=== PATIENT | female | born 1975 ===

== ENCOUNTER 2021-04-11 12:34 | Outpatient (REF) | payer OTHER, SELFPAY ==
[2021-04-11 15:32] LABS: Appearance Urine CLEAR; Color Urine YELLOW; Glucose Urine UA NEG (NEG); Leukocyte Esterase Urine NEG (NEG); Nitrite Urine NEG (NEG); Specific Gravity - Urine >= 1.030 (1.005-1.025); Urine Blood NEG (NEG); Urine Ketones NEG (NEG); Urine Protein NEG (NEG-TRACE)
[2021-04-11 15:51] LABS: Creatinine Urine 122.07 mg/dL; Microalbumin Urine < 5.0 mg/L
== END 2021-04-11 12:35 | disposition home or self-care (01) ==
LOC: HO.LAB 12:34
PROVIDERS: Internal Medicine Nephrology; PCP Internal Medicine; Visit Provider Internal Medicine Nephrology
DX: M32.10 Systemic lupus erythematosus, organ or system involvement unspecified (principal)
CPT/HCPCS: 81003; 82043

== ENCOUNTER 2021-11-26 09:33 | Outpatient (REF) | payer MEDICARE, MEDICAID, SELFPAY ==
[2021-11-26 10:01] LABS: MANUAL DIFF FLAG NO
[2021-11-26 10:35] LABS: Basophils Percent Auto 0.5 % (0-2); Eosinophils Absolute Auto 0.1 X10*3/uL (0.0-0.4); Hematocrit 34.5 % (37.0-47.0); Hemoglobin 10.9 g/dl (12.0-16.0); Imm Gran Abs Auto 0.02 X10*3/uL (0.00-0.03); Imm Gran Pct Auto 0.3 % (0.0-0.4); Lymphocytes Absolute Auto 1.9 X10*3/uL (1.2-4.9); Lymphocytes Percent Auto 29.8 % (20-40); Mean Corpuscular HGB Conc 31.6 g/dl (31.0-35.0); Mean Corpuscular Hemoglobin 24.5 pg (27.0-33.0); Mean Corpuscular Volume 77.7 fL (80.0-98.0); Mean Platelet Volume 12.3 fL (9.4-12.3); Monocytes Absolute Auto 0.3 X10*3/uL (0.1-1.2); Monocytes Percent Auto 5.4 % (2-11); Neutrophils Absolute Auto 3.9 x10*3/uL (2.0-8.3); Platelet Count 239 X10*3/uL (160-400); Red Blood Count 4.44 X10*6/uL (4.20-5.50); Red Cell Distribution Width 14.8 % (11.0-16.0); White Blood Count 6.4 X10*3/uL (4.8-10.8)
[2021-11-26 10:41] LABS: Appearance Urine CLEAR; Color Urine YELLOW; Glucose Urine UA 100 MG/DL (NEG); Leukocyte Esterase Urine NEG (NEG); Nitrite Urine NEG (NEG); Specific Gravity - Urine >= 1.030 (1.005-1.025); Urine Blood NEG (NEG); Urine Ketones NEG (NEG); Urine Protein NEG (NEG-TRACE)
[2021-11-26 11:22] LABS: Erythrocyte Sedimentation Rate 14 MM/HR (0-20)
[2021-11-26 11:27] LABS: Alanine Aminotransferase 12 U/L (0-31); Albumin Level 4.6 g/dL (3.5-5.0); Alkaline Phosphatase 117 U/L (39-117); Anion Gap 12 (12-20); Aspartate Amino Transferase 19 U/L (5-31); Bilirubin Total 0.3 mg/dL (0.0-1.0); Blood Urea Nitrogen 30 mg/dL (9-16); C Reactive Protein 0.61 mg/dL (< or = 0.50); Calcium 9.1 mg/dL (8.4-10.2); Carbon Dioxide 22 mmol/L (22-29); Chloride 108 mmol/L (96-108); Cholesterol 160 mg/dL; Estimated Glomerular Filt Rate 48; Glucose Random 85 mg/dL (60-115); HDL Cholesterol 49 mg/dL; LDL Cholesterol Calculated 97 mg/dl; Potassium 4.7 mmol/L (3.3-5.1); Sodium 137 mmol/L (135-145); Total Protein 7.8 g/dL (6.5-8.0); Triglycerides 74 mg/dL
[2021-11-26 11:36] LABS: Vitamin D 25-OH Total 25.2 ng/mL (>30)
[2021-11-26 11:37] LABS: Albumin Level 4.5 g/dL (3.5-5.0); Anion Gap 13 (12-20); Blood Urea Nitrogen 30 mg/dL (9-16); Carbon Dioxide 22 mmol/L (22-29); Chloride 108 mmol/L (96-108); Estimated Glomerular Filt Rate 48; Magnesium 2.1 mg/dL (1.6-2.6); Phosphorus 3.6 mg/dL (2.7-4.5); Potassium 4.8 mmol/L (3.3-5.1); Sodium 138 mmol/L (135-145)
[2021-11-26 12:48] LABS: Creatinine Urine 153.81 mg/dL; Protein/Creatinine Ratio, Ur 0.06 (<0.2); Total Protein Urine Random 9 mg/dL (<12)
[2021-11-27 13:47] LABS: Calcium (PTHI) 9.3 mg/dL (8.6-10.2); PTHI 122 pg/mL (16-77)
[2021-11-27 16:02] LABS: Complement C3 84 mg/dL (83-193)
[2021-12-01 14:22] LABS: Anti DNA DS Antibody 2 IU/mL
== END 2021-11-26 09:34 | disposition home or self-care (01) ==
LOC: HO.LAB 09:33
PROVIDERS: Absent Provider Internal Medicine Nephrology; PCP Internal Medicine; Visit Provider Internal Medicine Rheumatology
DX: I73.9 Peripheral vascular disease, unspecified (principal); I12.9 Hypertensive chronic kidney disease with stage 1 through stage 4 chronic kidney disease, or unspecified chronic kidney disease; N18.31 Chronic kidney disease, stage 3a; M32.9 Systemic lupus erythematosus, unspecified; D68.62 Lupus anticoagulant syndrome; N25.0 Renal osteodystrophy; G62.9 Polyneuropathy, unspecified
CPT/HCPCS: 36415; 80051; 80053; 80061; 81003; 82040; 82306; 82310; 82565; 83735; 83970; 84100; 84156; 84520; 85025; 85652; 86140; 86160; 86225; 87086; 99212

== ENCOUNTER → 2022-02-02 12:58 | Outpatient (BNVA) | payer MEDICARE, MEDICAID, SELFPAY | PROVIDERS: PCP Internal Medicine; Visit Provider Internal Medicine Rheumatology | DX: M32.9 Systemic lupus erythematosus, unspecified (principal); I12.9 Hypertensive chronic kidney disease with stage 1 through stage 4 chronic kidney disease, or unspecified chronic kidney disease; N18.30 Chronic kidney disease, stage 3 unspecified; R06.02 Shortness of breath; G62.9 Polyneuropathy, unspecified | CPT/HCPCS: 99212 ==

== ENCOUNTER 2022-02-19 13:36 | Outpatient (REF) | payer MEDICARE, MEDICAID, SELFPAY ==
--- NOTE | ~2022-02-19 | MM_ITS ---
EXAMINATION: MM SCREENING DIGITAL BREAST TOMOSYNTHESIS, BILATERAL CLINICAL INFORMATION: Screening. Asymptomatic. The lifetime risk of breast cancer based on the Tyrer-Cuzick Model is 10%. COMPARISON: Outside mammography: 06/11/2016, 04/24/2016 ([facility]). TECHNIQUE: Digital breast tomosynthesis is performed in both the craniocaudal and mediolateral oblique views along with computer-aided detection (CAD). Synthesized 2D images are generated from the tomosynthesis. FINDINGS: The breasts are heterogeneously dense, which may obscure small masses (ACR BI-RADS breast composition Category c). There are no significant masses, abnormal calcifications, or other abnormalities. Parenchymal pattern is similar to prior outside exam. No architectural abnormality. The axilla and skin contours are unremarkable. MM/MM tomosynthesis screening BI IMPRESSION: No mammographic evidence of malignancy. ASSESSMENT: BI-RADS 1: Negative RECOMMENDATION: Routine annual mammography screening. This patient's information was entered into a reminder system with a target due date for their next mammogram.
== END 2022-02-19 13:37 | disposition home or self-care (01) ==
LOC: HO.MAMMO 13:36
PROVIDERS: Visit Provider Internal Medicine
DX: Z12.31 Encounter for screening mammogram for malignant neoplasm of breast (principal)
CPT/HCPCS: 77063; 77067

== ENCOUNTER 2022-04-21 13:13 | Outpatient (REF) | payer MEDICARE, MEDICAID, SELFPAY ==
--- NOTE | ~2022-04-21 | XR_ITS ---
EXAMINATION: XR chest 2V CLINICAL INFORMATION: Shortness of breath COMPARISON: Prior chest x-ray 2016 TECHNIQUE: XR chest 2V Lungs and Janice: Both lungs are clear. Pleura: Normal. Costophrenic angles are sharp. No pneumothorax. Heart: The heart is normal in size. Mediastinum: The mediastinum is within normal limits.. Bones: Skeletal structures included are normal for patient's age. XR/XR chest 2V IMPRESSION: No radiographic evidence of acute cardiopulmonary disease.
[2022-04-21 13:34] LABS: MANUAL DIFF FLAG NO
[2022-04-21 14:04] LABS: Basophils Percent Auto 0.8 % (0-2); Eosinophils Absolute Auto 0.2 X10*3/uL (0.0-0.4); Eosinophils Percent Auto 2.8 % (0-4); Hematocrit 40.6 % (37.0-47.0); Hemoglobin 13.5 g/dl (12.0-16.0); Imm Gran Abs Auto 0.03 X10*3/uL (0.00-0.03); Imm Gran Pct Auto 0.6 % (0.0-0.4); Lymphocytes Absolute Auto 1.8 X10*3/uL (1.2-4.9); Mean Corpuscular HGB Conc 33.3 g/dl (31.0-35.0); Mean Corpuscular Hemoglobin 28.8 pg (27.0-33.0); Mean Corpuscular Volume 86.6 fL (80.0-98.0); Monocytes Absolute Auto 0.4 X10*3/uL (0.1-1.2); Monocytes Percent Auto 7.1 % (2-11); Neutrophils Percent Auto 55.7 % (45-73); Platelet Count 188 X10*3/uL (160-400); Red Blood Count 4.69 X10*6/uL (4.20-5.50); Red Cell Distribution Width 13.9 % (11.0-16.0); White Blood Count 5.3 X10*3/uL (4.8-10.8)
[2022-04-21 14:51] LABS: Protein/Creatinine Ratio, Ur 0.05 (<0.2); Total Protein Urine Random 12 mg/dL (<12)
[2022-04-21 14:57] LABS: Alanine Aminotransferase 14 U/L (0-31); Albumin Level 4.2 g/dL (3.5-5.0); Alkaline Phosphatase 73 U/L (39-117); Anion Gap 11 (12-20); Aspartate Amino Transferase 17 U/L (5-31); Bilirubin Total 0.5 mg/dL (0.0-1.0); Blood Urea Nitrogen 18 mg/dL (9-16); C Reactive Protein 0.59 mg/dL (< or = 0.50); Calcium 9.2 mg/dL (8.4-10.2); Carbon Dioxide 25 mmol/L (22-29); Chloride 104 mmol/L (96-108); Estimated Glomerular Filt Rate 53; Glucose Random 85 mg/dL (60-115); Potassium 4.3 mmol/L (3.3-5.1); Sodium 136 mmol/L (135-145)
[2022-04-21 16:53] LABS: Erythrocyte Sedimentation Rate 3 MM/HR (0-20)
== END 2022-04-21 13:14 | disposition home or self-care (01) ==
LOC: HO.LAB 13:13
PROVIDERS: PCP Internal Medicine; Visit Provider Internal Medicine Rheumatology
DX: M32.9 Systemic lupus erythematosus, unspecified (principal); N18.30 Chronic kidney disease, stage 3 unspecified; R06.02 Shortness of breath
CPT/HCPCS: 36415; 71046; 80053; 84156; 85025; 85652; 86140

== ENCOUNTER → 2022-04-27 14:00 | Outpatient (BNVA) | payer MEDICARE, MEDICAID, SELFPAY | PROVIDERS: PCP Internal Medicine; Visit Provider Internal Medicine Rheumatology | DX: M32.9 Systemic lupus erythematosus, unspecified (principal); G62.9 Polyneuropathy, unspecified; I12.9 Hypertensive chronic kidney disease with stage 1 through stage 4 chronic kidney disease, or unspecified chronic kidney disease; N18.30 Chronic kidney disease, stage 3 unspecified; E03.9 Hypothyroidism, unspecified; M70.61 Trochanteric bursitis, right hip; M70.62 Trochanteric bursitis, left hip; R26.81 Unsteadiness on feet; Z79.899 Other long term (current) drug therapy | CPT/HCPCS: 99212 ==

== ENCOUNTER 2022-06-24 12:35 | Outpatient (RCR) | payer MEDICARE, MEDICAID, SELFPAY ==
[2022-06-24 13:06] VITALS: BP 109/75; PULSE 76; O2SAT 97
--- NOTE | 2022-06-24 15:15 | MHC.PT.EP ---
[facility] [place] Office [place] Office [place] Office [address] Charly Salinas [address] [phone] F: [phone] F: [phone] F: [phone] F: [phone] Physical Therapy Plan of Care Date of Evaluation: Date of Surgery: Diagnosis: BILATERAL HIP BURSITIS, UNSTEADY GAIT Assessment: 47 YO REF TO PT WITH A H/O LUPUS AND EXACERBATED MERARI HIP PAIN- SHE IS LIMITED W WALKING/ EXER/ STAIR MGMT/ LIFTING/ SQUATTING- SHE HAS DECR LUMBOPELVIC/PROX LEs STRENGTH AND STAB, TIGHTNESS IN MERARI HIP ROTATORS, (+) TISSUE TENDERNESS AND TRPs MERARI PSOAS AND QL, TISSUE TENSION IN MERARI LS W COMPENSATORY HYPERLORDOSIS , (+) VALSALVA TENDENCIES, (+) FADIR , AND PAIN W PALP TO MERARI TROCH REGION. Pt IS MOTIVATED FOR PT- SHE WOULD BENEFIT FROM PT TO ADDRESS THE ABOVE FINDINGS, PAIN MGMT, DEV A PROGR HEP, AND SELF-SX MGMT TECHN. 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 Manual therapy to restore motion and function. Therapeutic exercise to improve strength and flexibility. Neuromuscular re-education for posture and balance. Therapeutic activities to return to functional activities of daily living. Electronically signed by: DMITRIY JOHNSON,PT Please sign and return to therapist. Thank you for your referral.
--- NOTE | 2022-07-15 14:29 | MHC.PT.DC ---
[facility] [place] Office [place] Office [place] Office [address] Charly Salinas [address] [phone] F: [phone] F: [phone] F: [phone] F: [phone] Physical Therapy Discharge Report Diagnosis: BILATERAL HIP BURSITIS, UNSTEADY GAIT Date of Surgery: Date of Evaluation: 06/24/22 Date of Discharge: 07/15/22 Treatments to Date: 1 Cancellations to Date: 1 No Shows to Date: 2 Discharge Status: Visit Non-compliance Discharge Summary: Pt DID NOT MEET PT GOALS DUE TO DECR ATTENDANCE FOR SCHED PT APPTS, DESPITE REGULAR REMINDERS. Electronically signed by: DMITRIY JOHNSON,PT Please sign and return to therapist. Thank you for your referral.
== END 2022-07-15 14:30 | disposition home or self-care (01) ==
LOC: HO.PT 12:35
PROVIDERS: PCP Internal Medicine; Visit Provider Internal Medicine Rheumatology
DX: M70.61 Trochanteric bursitis, right hip (principal); M70.62 Trochanteric bursitis, left hip; R26.81 Unsteadiness on feet
CPT/HCPCS: 97110; 97162

== ENCOUNTER 2022-06-29 16:21 | Outpatient (REF) | payer MEDICARE, MEDICAID, SELFPAY ==
[2022-06-29 16:39] LABS: MANUAL DIFF FLAG NO
[2022-06-29 17:34] LABS: Basophils Percent Auto 0.3 % (0-2); Eosinophils Absolute Auto 0.1 X10*3/uL (0.0-0.4); Eosinophils Percent Auto 1.7 % (0-4); Hematocrit 39.7 % (37.0-47.0); Hemoglobin 13.4 g/dl (12.0-16.0); Imm Gran Abs Auto 0.03 X10*3/uL (0.00-0.03); Imm Gran Pct Auto 0.4 % (0.0-0.4); Lymphocytes Absolute Auto 2.4 X10*3/uL (1.2-4.9); Lymphocytes Percent Auto 34.7 % (20-40); Mean Corpuscular HGB Conc 33.8 g/dl (31.0-35.0); Mean Corpuscular Hemoglobin 29.4 pg (27.0-33.0); Mean Corpuscular Volume 87.1 fL (80.0-98.0); Monocytes Absolute Auto 0.5 X10*3/uL (0.1-1.2); Monocytes Percent Auto 7.4 % (2-11); Neutrophils Absolute Auto 3.8 x10*3/uL (2.0-8.3); Neutrophils Percent Auto 55.5 % (45-73); Platelet Count 204 X10*3/uL (160-400); Red Blood Count 4.56 X10*6/uL (4.20-5.50); Red Cell Distribution Width 12.6 % (11.0-16.0); White Blood Count 6.9 X10*3/uL (4.8-10.8)
[2022-06-29 17:44] LABS: Anion Gap 13 (12-20); Blood Urea Nitrogen 21 mg/dL (9-16); Calcium 9.6 mg/dL (8.4-10.2); Carbon Dioxide 24 mmol/L (22-29); Chloride 107 mmol/L (96-108); Estimated Glomerular Filt Rate 49; Glucose Random 71 mg/dL (60-115); Potassium 4.5 mmol/L (3.3-5.1); Sodium 139 mmol/L (135-145)
[2022-06-29 17:46] LABS: Creatinine Urine 129.02 mg/dL; Total Protein Urine Random < 7 mg/dL (<12)
[2022-06-29 17:49] LABS: C Reactive Protein 0.34 mg/dL (< or = 0.50)
[2022-06-29 18:05] LABS: Thyroid Stimulating Hormone 1.51 uIU/mL (0.32-4.0)
[2022-06-29 18:25] LABS: Erythrocyte Sedimentation Rate 3 MM/HR (0-20)
== END 2022-06-29 16:22 | disposition home or self-care (01) ==
LOC: HO.LAB 16:21
PROVIDERS: Absent Provider Internal Medicine Hypertension Specialist; PCP Internal Medicine; Visit Provider Internal Medicine Rheumatology
DX: E03.9 Hypothyroidism, unspecified (principal); M32.9 Systemic lupus erythematosus, unspecified; N18.31 Chronic kidney disease, stage 3a
CPT/HCPCS: 36415; 80048; 84156; 84443; 85025; 85652; 86140

== ENCOUNTER → 2022-07-27 10:46 | Outpatient (BNVA) | payer MEDICARE, MEDICAID, SELFPAY | PROVIDERS: PCP Internal Medicine; Visit Provider Internal Medicine Rheumatology | DX: M32.9 Systemic lupus erythematosus, unspecified (principal); G62.9 Polyneuropathy, unspecified; I10 Essential (primary) hypertension; Z79.899 Other long term (current) drug therapy | CPT/HCPCS: 99212 ==

== ENCOUNTER 2022-11-17 13:01 | Outpatient (REF) | payer MEDICARE, MEDICAID, SELFPAY ==
[2022-11-17 13:14] LABS: MANUAL DIFF FLAG NO
[2022-11-17 14:10] LABS: Basophils Percent Auto 0.6 % (0-2); Eosinophils Absolute Auto 0.1 X10*3/uL (0.0-0.4); Eosinophils Percent Auto 1.6 % (0-4); Hematocrit 38.9 % (37.0-47.0); Hemoglobin 13.3 g/dl (12.0-16.0); Imm Gran Abs Auto 0.04 X10*3/uL (0.00-0.03); Imm Gran Pct Auto 0.6 % (0.0-0.4); Lymphocytes Absolute Auto 2.5 X10*3/uL (1.2-4.9); Lymphocytes Percent Auto 38.6 % (20-40); Mean Corpuscular HGB Conc 34.2 g/dl (31.0-35.0); Mean Corpuscular Hemoglobin 30.4 pg (27.0-33.0); Monocytes Absolute Auto 0.5 X10*3/uL (0.1-1.2); Monocytes Percent Auto 7.9 % (2-11); Neutrophils Absolute Auto 3.3 x10*3/uL (2.0-8.3); Neutrophils Percent Auto 50.7 % (45-73); Platelet Count 200 X10*3/uL (160-400); Red Blood Count 4.37 X10*6/uL (4.20-5.50); Red Cell Distribution Width 12.4 % (11.0-16.0); White Blood Count 6.4 X10*3/uL (4.8-10.8)
[2022-11-17 14:58] LABS: Erythrocyte Sedimentation Rate 4 MM/HR (0-20)
[2022-11-17 15:30] LABS: Alanine Aminotransferase 15 U/L (0-31); Albumin Level 4.3 g/dL (3.5-5.0); Alkaline Phosphatase 69 U/L (39-117); Anion Gap 13 (12-20); Aspartate Amino Transferase 19 U/L (5-31); Bilirubin Total 0.5 mg/dL (0.0-1.0); Blood Urea Nitrogen 21 mg/dL (9-16); C Reactive Protein 0.43 mg/dL (< or = 0.50); Calcium 9.6 mg/dL (8.4-10.2); Carbon Dioxide 23 mmol/L (22-29); Chloride 107 mmol/L (96-108); Estimated Glomerular Filt Rate 56; Glucose Random 85 mg/dL (60-115); Potassium 4.1 mmol/L (3.3-5.1); Sodium 139 mmol/L (135-145); Total Protein 7.2 g/dL (6.5-8.0)
[2022-11-17 16:11] LABS: Protein/Creatinine Ratio, Ur 0.05 (<0.2); Total Protein Urine Random 9 mg/dL (<12)
[2022-11-18 10:54] LABS: Complement C3 113 mg/dL (83-193)
== END 2022-11-17 13:02 | disposition home or self-care (01) ==
LOC: HO.LAB 13:01
PROVIDERS: Visit Provider Internal Medicine Rheumatology
DX: M32.9 Systemic lupus erythematosus, unspecified (principal)
CPT/HCPCS: 36415; 80053; 84156; 85025; 85652; 86140; 86160

== ENCOUNTER → 2022-11-25 08:48 | Outpatient (BNVA) | payer MEDICARE, MEDICAID, SELFPAY | PROVIDERS: PCP Internal Medicine; Visit Provider Internal Medicine Rheumatology | DX: M32.9 Systemic lupus erythematosus, unspecified (principal); G62.9 Polyneuropathy, unspecified; I73.9 Peripheral vascular disease, unspecified; R76.0 Raised antibody titer; Z79.899 Other long term (current) drug therapy | CPT/HCPCS: 99212 ==

== ENCOUNTER 2022-11-26 15:12 | Outpatient (REF) | payer MEDICARE, MEDICAID, SELFPAY ==
[2022-12-02 04:34] LABS: Cardiolipin IgG Ab <2.0 GPL-U/mL; Cardiolipin IgM Ab <2.0 MPL-U/mL
[2022-12-03 13:33] LABS: Beta-2 Glycoprotein IgA <2.0 U/mL (<20.0); Beta-2 Glycoprotein IgG <2.0 U/mL (<20.0); Beta-2 Glycoprotein IgM <2.0 U/mL (<20.0)
== END 2022-11-26 15:13 | disposition home or self-care (01) ==
LOC: HO.LAB 15:12
PROVIDERS: Visit Provider Internal Medicine Rheumatology
DX: R76.0 Raised antibody titer (principal)
CPT/HCPCS: 36415; 85597; 85598; 85613; 85670; 85730; 86146; 86147

== ENCOUNTER 2023-02-16 08:17 | Outpatient (REF) | payer MEDICARE, MEDICAID, SELFPAY ==
[2023-02-16 08:41] LABS: MANUAL DIFF FLAG NO
[2023-02-16 09:00] LABS: Basophils Percent Auto 0.7 % (0-2); Eosinophils Absolute Auto 0.1 X10*3/uL (0.0-0.4); Eosinophils Percent Auto 1.8 % (0-4); Hematocrit 40.4 % (37.0-47.0); Hemoglobin 13.5 g/dl (12.0-16.0); Imm Gran Abs Auto 0.04 X10*3/uL (0.00-0.03); Imm Gran Pct Auto 0.7 % (0.0-0.4); Lymphocytes Absolute Auto 2.1 X10*3/uL (1.2-4.9); Lymphocytes Percent Auto 33.3 % (20-40); Mean Corpuscular HGB Conc 33.4 g/dl (31.0-35.0); Mean Corpuscular Volume 89.8 fL (80.0-98.0); Mean Platelet Volume 12.4 fL (9.4-12.3); Monocytes Absolute Auto 0.6 X10*3/uL (0.1-1.2); Monocytes Percent Auto 9.1 % (2-11); Neutrophils Absolute Auto 3.4 x10*3/uL (2.0-8.3); Neutrophils Percent Auto 54.4 % (45-73); Platelet Count 204 X10*3/uL (160-400); Red Cell Distribution Width 12.2 % (11.0-16.0); White Blood Count 6.2 X10*3/uL (4.8-10.8)
[2023-02-16 09:23] LABS: Creatinine Urine 189.11 mg/dL; Protein/Creatinine Ratio, Ur 0.05 (<0.2); Total Protein Urine Random 10 mg/dL (<12)
[2023-02-16 09:37] LABS: Estimated Glomerular Filt Rate 46
[2023-02-16 10:01] LABS: Erythrocyte Sedimentation Rate 5 MM/HR (0-20)
[2023-02-18 19:09] LABS: Anti DNA DS Antibody 1 IU/mL
[2023-02-19 02:34] LABS: Complement C3 134 mg/dL (83-193)
== END 2023-02-16 08:18 | disposition home or self-care (01) ==
LOC: HO.LAB 08:17
PROVIDERS: PCP Internal Medicine; Visit Provider Internal Medicine Rheumatology
DX: M32.9 Systemic lupus erythematosus, unspecified (principal)
CPT/HCPCS: 36415; 82565; 82570; 84156; 85025; 85652; 86140; 86160; 86225

== ENCOUNTER 2023-02-22 13:16 | Outpatient (AMB) | payer OTHER, SELFPAY ==
--- NOTE | 2023-02-22 13:18 | A.OFFVIS_ITS ---
Intake Vital Signs 02/22/23 13:28 Height 5 ft 5 in Weight 172 lb 2.896 oz BMI 28.6 BP 116/74 Blood Pressure Location Lt brachial Position Sitting Pulse 65 Pulse Source Pulse Oximeter Temp 97.9 F Temp Source Skin Pulse Oximetry (%) 99 Oxygen Delivery Method Room Air Intake Visit Reasons: f/u for SLE Intake Note: Patient presents today to follow up on SLE. 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: No Accompanied by: Self / Same As Patient Allergies ibuprofen [From ADVIL] Allergy (Unknown, Unverified 02/22/23 13:18) HIVES naproxen [From ALEVE] Allergy (Unknown, Unverified 02/22/23 13:18) HIVES Nsaids Allergy (Intermediate, Uncoded 02/22/23 13:18) hives Medication List - Last Reconciled 02/22/23 by Mauricio Méndez MD acetaminophen (Tylenol Extra Strength) 1,000 mg PO Q6H PRN albuterol sulfate 90 mcg/actuation (Ventolin HFA) inhalation betamethasone valerate 0.1% appl topical hydroxychloroquine 300 mg PO DAILY labetalol 200 mg PO BID levothyroxine 25 mcg PO DAILY omeprazole 20 mg PO DAILY triamcinolone acetonide 0.1% 1 appl topical DAILY HPI HPI Comments History of Present Illness Details The patient returns for evaluation of her SLE. She remains on hydroxychloroquine at 300 mg daily. This seems to be tolerated well. She does not seem to have any joint swelling or pain, oral ulcers, fever, abdominal pain or chills. She does still have a few lesions on her scalp on which she uses some corticosteroid liquid. She was seen in Dermatology about this. Her hair seems to have been continue to return except in the area where she had the skin lesion. She remains on labetalol for her hypertension. Her iron tablets were discontinued. She remains on some omeprazole and levothyroxine. She still has some numbness in her feet and feels uncomfortable walking. She seems to recall she had some neurologic studies done somewhere that indicated a neuropathy but I do not have those available presently. [facility] Surgical History Hx of tubal ligation Family History Mother No problems noted. Father No problems noted. Social History Household Members: Family Housing: House Are you a primary career and transition teacher to a significant other at home: No Do you presently have visiting nurse or other home services: No 75 years or older and lives alone: No Alcohol intake: never Patient Tobacco Use Status: Never used Tobacco e-Cigarette/Vaping Use: Never Used service: No Current occupational status: unemployed and disabled Review of Systems Const Details: Negative for appetite change, weight change, fever, chills, malaise and fatigue Eyes Details: Negative for vision change, dry eyes,headaches and dizziness ENT Details: Negative for hearing change, tinnitus, oral ulcer, nose bleeds and oral dryness. Card Details: Negative chest pain, edema and syncope Resp Details: Negative for SOB, cough and wheezing GI Details: Negative indigestion/heartburn, nausea, abdominal pain, bowel changes, diarrhea, constipation and bloody stool. Details: Negative for dysuria, hematuria, nocturia, decreased force/flow and genital discharge Skin/Breast Details: Negative for itching, rash, hives, Raynaud's symptoms, sun sensitivity, and skin cancer Neuro Details: Negative for epilepsy, palsy, stroke, changes in speech, tingling and weakness Psych Details: Negative for anxiety, depression and stress Endo Details: Negative for polyuria and polydypsia Momo/Lymph Details: Negative for excessive bruising or bleeding. Physical Exam Vital Signs: Last Vital Signs Temp 97.9 F 02/22/23 13:28 Pulse 65 02/22/23 13:28 BP 116/74 02/22/23 13:28 Pulse Ox 99 02/22/23 13:28 Oxygen Delivery Method Room Air 02/22/23 13:28 BMI result Body Mass Index 28.6 APPEARANCE: Patient in no acute distress EYES no redness, pupils equal and reactive to light, eyelids normal EARS: External ear normal, canal clear and tympanic membrane normal. NOSE/SINUS: Airflow through both nares, no nasal discharge, no bleeding THROAT: Oral mucosa moist, no ulcerations NECK: No thyromegaly or masses, no adenopathy, trachea midline. HEART: Regulrar rhythm, S1-S2 heard, no murmurs, rubs or gallops. LUNG: Clear to percussion and auscultation ABD: Normal bowel sounds, no organomegaly, masses or tenderness. EXTREMITIES: No edema, no calf tenderness. There does appear to be decreased posterior tibial and absent dorsalis pedis pulse on the left foot. On the right foot I do feel a slight posterior tibial pulse but not a dorsalis pedis. The skin seems warm and well perfused. There are no breaks in the integrity of the skin. NEURO:? Oriented and alert x3.? Reflexes symmetric.? Gait somewhat uncertain.? Some plantar flexion weakness.? Decreased sensation over the soles and dorsum of the feet. SKIN:? Over the scalp there are a few areas of hair thinning this. The areas do not look red.? They are not tender.? At the vertex of the scalp for few atrophic lesions without any return of hair growth. This look like the could be some discoid lesions. Otherwise no inflammatory or neoplastic lesions.? No objective evidence currently of Raynaud's phenomena in the hands or feet. JOINT EXAM: Cervical Spine:.? Full range of motion without pain; no tenderness. Thoracic Spine:.? No scoliosis.? No tenderness on palpation. Lumbar Spine:.? Alignment normal.? Full range of motion without pain, no tenderness. Chest Wall:.? No tenderness, swelling, increased warmth or erythema. Hands:? Right:? There is no MCP swelling but they all seem to have some slight tenderness.? Other joints have no tenderness, pain with motion or swelling.? No thenar atrophy or sensory loss.? Left:? Normal pain-free range of motion with slight tenderness across the MCP joints but they are not swollen.? Other joints have no tenderness, swelling, increased warmth or erythema.? No thenar atrophy or sensory loss. Wrists:.? Normal pain-free range of motion without tenderness, swelling, increased warmth or erythema. Elbows:. Normal pain-free range of motion without tenderness, swelling, increased warmth or erythema. Shoulders:.?? Full range of motion without pain. No tenderness, weakness, swelling, increased warmth or erythema. Hips:.? Full range of motion without pain. Hip bursa:.? To mild right trochanteric tenderness. Knees:.?? Normal pain-free range of motion with minimal patellofemoral crepitus and some slight medial compartment tenderness without effusion, soft tissue swelling, increased warmth or erythema.? Ankles:.? Normal pain-free range of motion without tenderness, swelling, increased warmth or erythema. Feet: There is a left 2nd toe hammertoe deformity although it is not tender.? T he skin over the toes seems to be intact.? No tenderness or swelling elsewhere. Tender points:? Mild tenderness to digital palpation at the lateral epicondyle, knees, greater trochanter area bilaterally. Results Reviewed Results Reviewed: Laboratory Tests 02/16/23 08:40 WBC 6.2 Hgb 13.5 ESR 5 Creatinine 1.24 C-Reactive Protein 0.50 Double Strand DNA Ab 1 Complement C3 134 Complement C4 23 Assessment & Plan Assessment & Plan (1) Peripheral neuropathy: Comment: ? due to lupus Code(s): G62.9 - Polyneuropathy, unspecified (2) Peripheral arterial disease: Comment: 07/2021: Duplex arterial study shows focal segmental occlusive disease within the left proximal popliteal artery, reconstitution with collateral vasculature in the mid popliteal artery, three-vessel runoff. ANTHONY right posterior tibial 1.2, right dorsalis pedis 0.9, right digital index 0.5. 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 Four of 20 glomeruli show active lesions; one of 20 shows a chronic lesion. The tubular immune complex deposits may contribute to the ATI, but the rapid creatinine rise requiring dialysis suggests an additional etiology. There is no interstitial fibrosis/tubular atrophy but mild vascular disease (intimal hyperplasia) is present. After discussion with Rheum/Renal it was thought that ATN predominantly the cause of her renal failure (additionally PRES the cause of her neuro issues). Given less likely lupus-mediated, her steroids were reduced to IV methylpred 32mg/daily (equivalent to home prednisone dose) and MMF was deferred. Code(s): N18.30 - Chronic kidney disease, stage 3 unspecified (5) SLE (systemic lupus erythematosus): Comment: Onset 2009 with polyarthritis. Rheumatoid factor negative. LAUREN and [id number] DNA positive. Not much better with hydroxychloroquine. Methotrexate added in 2012 but caused nausea. Azathioprine added in 2014 but had to be stopped because of dizziness and lightheadedness. Trial of Humira in 2015 resulted in a flare of SLE with increased arthritis, leukopenia, skin rash, abdominal pain and fever. Put back on hydroxychloroquine October 2015. Eye exam OK 05/2019, 12/202006/29/2018 Single + anticardiolipin antibody- Negative SSA, SSB. 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 [facility] 06/2020 - required short term hemodialysis - due to ATN +/- class 3 lupus nephritis. CellCept discontinued due to leukopenia. 2021: Hydroxychloroquine continued and prednisone tapered off Code(s): M32.9 - Systemic lupus erythematosus, unspecified Plan SLE with symptoms presently under control and no obvious signs of active inflammatory disease. She is left with some mild renal impairment and some neuropathic changes in the feet. I would presume this is all related to lupus. She did have class 3 lupus nephritis when she was biopsied years ago but in recent years has had no proteinuria and a creatinine has been stable. She wants to know if she should stay on her blood pressure medicine I think that is a good idea given her prior renal damage. She has an occluded left poplitieal artery that probably occurred during her prolonged hospitalizaion in 2020. She gets regular eye exam so I think the hydroxychloroquine should be continued. We will aim for follow-up with Rheumatology MD in about 4 months. I did order lab work to recheck inflammatory activity and lupus activity but currently they look to be normal. Orders: Orders Erythrocyte Sedimentation Rate Today M32.9 - Systemic lupus erythematosus, unspecified Complement C3 Today M32.9 - Systemic lupus erythematosus, unspecified C Reactive Protein Today M32.9 - Systemic lupus erythematosus, unspecified Anti DNA DS Antibody Today M32.9 - Systemic lupus erythematosus, unspecified Complement C4 Today M32.9 - Systemic lupus erythematosus, unspecified Complete Blood Count Auto Diff Today M32.9 - Systemic lupus erythematosus, unspecified Protein Creatinine Ratio, Ur Today M32.9 - Systemic lupus erythematosus, unspecified Creatinine Today M32.9 - Systemic lupus erythematosus, unspecified Medications: New hydroxychloroquine 300 mg (1.5 x 200 mg) PO DAILY 45 tabs 5RF M32.9 - Systemic lupus erythematosus, unspecified Coding Level of Care Code Est Pt Level 4 (02889) Diagnoses Peripheral neuropathy G62.9 Peripheral arterial disease I73.9 Long-term use of hydroxychloroquine Z79.899 CKD (chronic kidney disease) stage 3, GFR 30-59 ml/min N18.30 SLE (systemic lupus erythematosus) M32.9
[2023-02-22 13:28] VITALS: BP 116/74; PULSE 65; TEMP 36.6; O2SAT 99; BMI 28.6
== END 2023-02-22 14:23 | disposition home or self-care (01) ==
PROVIDERS: PCP Internal Medicine; Visit Provider Internal Medicine Rheumatology
DX: G62.9 Polyneuropathy, unspecified (principal); I73.9 Peripheral vascular disease, unspecified; Z79.899 Other long term (current) drug therapy; N18.30 Chronic kidney disease, stage 3 unspecified; M32.9 Systemic lupus erythematosus, unspecified
CPT/HCPCS: 99214

== ENCOUNTER → 2023-02-22 13:16 | Outpatient (BNVA) | payer OTHER, SELFPAY | PROVIDERS: PCP Internal Medicine; Visit Provider Internal Medicine Rheumatology | DX: M32.9 Systemic lupus erythematosus, unspecified (principal); N18.30 Chronic kidney disease, stage 3 unspecified; I73.9 Peripheral vascular disease, unspecified; G62.9 Polyneuropathy, unspecified; Z79.899 Other long term (current) drug therapy | CPT/HCPCS: 99212 ==

== ENCOUNTER 2023-03-09 09:03 | Outpatient (REF) | payer OTHER, SELFPAY ==
[2023-03-09 09:18] LABS: MANUAL DIFF FLAG NO
[2023-03-09 09:58] LABS: Basophils Absolute Auto 0.1 X10*3/uL (0.0-0.2); Basophils Percent Auto 0.8 % (0-2); Eosinophils Absolute Auto 0.1 X10*3/uL (0.0-0.4); Eosinophils Percent Auto 1.5 % (0-4); Hematocrit 38.1 % (37.0-47.0); Hemoglobin 12.8 g/dl (12.0-16.0); Imm Gran Abs Auto 0.02 X10*3/uL (0.00-0.03); Imm Gran Pct Auto 0.3 % (0.0-0.4); Lymphocytes Absolute Auto 2.3 X10*3/uL (1.2-4.9); Lymphocytes Percent Auto 35.3 % (20-40); Mean Corpuscular HGB Conc 33.6 g/dl (31.0-35.0); Mean Corpuscular Volume 89.4 fL (80.0-98.0); Mean Platelet Volume 12.9 fL (9.4-12.3); Monocytes Absolute Auto 0.5 X10*3/uL (0.1-1.2); Neutrophils Absolute Auto 3.5 x10*3/uL (2.0-8.3); Neutrophils Percent Auto 54.1 % (45-73); Platelet Count 208 X10*3/uL (160-400); Red Blood Count 4.26 X10*6/uL (4.20-5.50); Red Cell Distribution Width 12.4 % (11.0-16.0); White Blood Count 6.5 X10*3/uL (4.8-10.8)
[2023-03-09 10:40] LABS: Anion Gap 13 (12-20); Blood Urea Nitrogen 17 mg/dL (9-16); Calcium 9.1 mg/dL (8.4-10.2); Carbon Dioxide 25 mmol/L (22-29); Chloride 105 mmol/L (96-108); Estimated Glomerular Filt Rate 56; Potassium 4.2 mmol/L (3.3-5.1); Sodium 139 mmol/L (135-145)
== END 2023-03-09 09:04 | disposition home or self-care (01) ==
LOC: HO.LAB 09:03
PROVIDERS: PCP Internal Medicine; Visit Provider Internal Medicine Hypertension Specialist
DX: E11.9 Type 2 diabetes mellitus without complications (principal)
CPT/HCPCS: 36415; 80051; 82310; 82565; 84520; 85025

== ENCOUNTER 2023-06-10 12:28 | Outpatient (REF) | payer MEDICARE, MEDICAID, SELFPAY ==
--- NOTE | ~2023-06-10 | MM_ITS ---
EXAMINATION: MM SCREENING DIGITAL BREAST TOMOSYNTHESIS, BILATERAL CLINICAL INFORMATION: Screening. Asymptomatic. COMPARISON: Mammography: This study is compared with prior exams dating back to 2016. TECHNIQUE: Digital breast tomosynthesis is performed in both the craniocaudal and mediolateral oblique views along with computer-aided detection (CAD). Synthesized 2D images are generated from the tomosynthesis. FINDINGS: The breasts are heterogeneously dense, which may obscure small masses (ACR BI-RADS breast composition Category c). There are no significant masses, abnormal calcifications, or other abnormalities. MM/MM tomosynthesis screening BI IMPRESSION: No mammographic evidence of malignancy. ASSESSMENT: BI-RADS BI-RADS 1 - Negative RECOMMENDATION: Routine annual mammography screening. 1 year F/U This examination should not preclude the clinical evaluation of a suspicious palpable abnormality. This patient's information was entered into a reminder system with a target due date for their next mammogram.
== END 2023-06-10 12:29 | disposition home or self-care (01) ==
LOC: HO.MAMMO 12:28
PROVIDERS: PCP Internal Medicine; Visit Provider Internal Medicine
DX: Z12.31 Encounter for screening mammogram for malignant neoplasm of breast (principal)
CPT/HCPCS: 77063; 77067

== ENCOUNTER → 2023-06-10 13:15 | Outpatient (BNV) | payer MEDICARE, MEDICAID, SELFPAY | PROVIDERS: PCP Internal Medicine; Visit Provider Radiology Diagnostic Radiology | DX: Z12.31 Encounter for screening mammogram for malignant neoplasm of breast (principal) | CPT/HCPCS: 77063; 77067 ==

== ENCOUNTER 2023-07-20 09:43 | Outpatient (AMB) | payer MEDICARE, OTHER, MEDICAID, SELFPAY ==
[2023-07-20 09:59] VITALS: BP 118/72; PULSE 76; TEMP 36.1; O2SAT 98; BMI 28.8
--- NOTE | 2023-07-20 09:59 | MHC.OFFVIS ---
Intake Vital Signs 07/20/23 09:59 Height 5 ft 5 in Weight 173 lb 1.006 oz BMI 28.8 BP 118/72 Blood Pressure Location Lt brachial Position Sitting Pulse 76 Pulse Source Pulse Oximeter Temp 96.9 F Temp Source Skin Pulse Oximetry (%) 98 Oxygen Delivery Method Room Air Intake Visit Reasons: sle - dr. cavazos Intake Note: Patient last seen 02/22/23 presents today for follow up and test results. 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: No Accompanied by: Self / Same As Patient Allergies ibuprofen [From ADVIL] Allergy (Unknown, Unverified 07/20/23 10:06) HIVES naproxen [From ALEVE] Allergy (Unknown, Unverified 07/20/23 10:06) HIVES Nsaids Allergy (Intermediate, Uncoded 07/20/23 10:06) hives Medication List - Last Reconciled 07/20/23 by Bryson Cavazos MD acetaminophen (Tylenol Extra Strength) 1,000 mg PO Q6H PRN albuterol sulfate 90 mcg/actuation (Ventolin HFA) inhalation betamethasone valerate 0.1% appl topical hydroxychloroquine 300 mg (1.5 x 200 mg) PO DAILY ipratropium bromide 17 mcg/actuation (Atrovent HFA) inhalation PRN labetalol 200 mg PO BID levothyroxine 25 mcg PO DAILY omeprazole 20 mg PO DAILY triamcinolone acetonide 0.1% 1 appl topical DAILY HPI HPI Comments History of Present Illness Details 48-year-old female with SLE returns for follow-up. On hydroxychloroquine 300 mg daily. Patient states that she is doing well overall. She was diagnosed with RSV infection back in April and was having a productive cough. She is doing better overall but continues to have mild nonproductive cough. She denies any new skin rashes. She states that sometimes her hands change color to pale and red. I asked patient to take pictures. She has been having pain on the outside of both hips. She gets intermittent swelling of her joints. Today she has some swelling of the right 2nd and 3rd MCPs. Most recent history by Dr. Méndez 02/2023: The patient returns for evaluation of her SLE. She remains on hydroxychloroquine at 300 mg daily. This seems to be tolerated well. She does not seem to have any joint swelling or pain, oral ulcers, fever, abdominal pain or chills. She does still have a few lesions on her scalp on which she uses some corticosteroid liquid. She was seen in Dermatology about this. Her hair seems to have been continue to return except in the area where she had the skin lesion. She remains on labetalol for her hypertension. Her iron tablets were discontinued. She remains on some omeprazole and levothyroxine. She still has some numbness in her feet and feels uncomfortable walking. She seems to recall she had some neurologic studies done somewhere that indicated a neuropathy but I do not have those available presently. [facility] Medical History Leukopenia Anemia Surgical History Hx of tubal ligation Family History Mother No problems noted. Father No problems noted. Social History Household Members: Family Housing: House Are you a primary care information associate to a significant other at home: No Do you presently have visiting nurse or other home services: No 75 years or older and lives alone: No Alcohol intake: never Patient Tobacco Use Status: Never used Tobacco e-Cigarette/Vaping Use: Never Used service: No Current occupational status: unemployed and disabled Review of Systems Resp Reports cough GI Reports no additional complaints Musc Reports arthralgias and Reports joint swelling Psych Reports abnormal sleep pattern Physical Exam Vital Signs: Last Vital Signs Temp 96.9 F 07/20/23 09:59 Pulse 76 07/20/23 09:59 BP 118/72 07/20/23 09:59 Pulse Ox 98 07/20/23 09:59 Oxygen Delivery Method Room Air 07/20/23 09:59 BMI result Body Mass Index 28.8 Const General: cooperative, healthy appearing and comfortable Nutritional Appearance: overweight Orientation/consciousness: patient oriented x3 Limitations: no limitations HEENT Head: Yes normocephalic and Yes atraumatic Mouth: moist mucous membranes Resp Effort & Inspection: normal respiratory effort and able to speak in complete sentences Auscultation: clear to auscultation bilaterally Cardio Rate: regular rate Rhythm: regular rhythm GI Inspection: No distended Palpation (GI): Soft to palpation and nontender Skin Other: Slight hyperpigmentation on extensor aspect of arms, forearms, back, slight hyperpigmentation on the inside of her right ear Hyperpigmented lesion on scalp vertex Neuro General: patient oriented x3 Extrem Other: Mild Jaccoud's arthropathy with some hyperflexibility of fingers Mild right 2nd and 3rd MCP swelling and tenderness Normal nailfold capillaroscopy Bilateral trochanteric bursa area tenderness with negative Dede's test Results Reviewed Results Reviewed: Laboratory Tests 02/16/23 08:40 WBC 6.2 Hgb 13.5 ESR 5 Creatinine 1.24 C-Reactive Protein 0.50 Double Strand DNA Ab 1 Complement C3 134 Complement C4 23 Assessment & Plan Assessment & Plan (1) SLE (systemic lupus erythematosus): Comment: Onset 2009 with polyarthritis. +LAUREN++DsDNA +ACL IgG .HCQ started but not effective Methotrexate added in 2012 but caused nausea. Azathioprine added in 2014 but had to be stopped because of dizziness and lightheadedness. Trial of Humira in 2015 resulted in a flare of SLE with increased arthritis, leukopenia, skin rash, abdominal pain and fever. Put back on hydroxychloroquine October 2015. Eye exam OK 05/2019, 12/202006/29/2018 Single + anticardiolipin antibody- Negative SSA, SSB. 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 - required short term hemodialysis - due to ATN +/- class 3 lupus nephritis. CellCept discontinued due to leukopenia. 2021: Hydroxychloroquine continued and prednisone tapered off Code(s): M32.9 - Systemic lupus erythematosus, unspecified Qualifiers: Systemic lupus erythematosus organ involvement: other Systemic lupus erythematosus type: other Qualified Code(s): M32.19 - Other organ or system involvement in systemic lupus erythematosus Plan: 48-year-old female with SLE returns for follow-up. Doing well on hydroxychloroquine 300 mg daily. She has some hyperpigmentation of her skin which can be related hydroxychloroquine. Can consider lowering hydroxychloroquine dose in the future. 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 Four of 20 glomeruli show active lesions; one of 20 shows a chronic lesion. The tubular immune complex deposits may contribute to the ATI, but the rapid creatinine rise requiring dialysis suggests an additional etiology. There is no interstitial fibrosis/tubular atrophy but mild vascular disease (intimal hyperplasia) is present. After discussion with Rheum/Renal it was thought that ATN predominantly the cause of her renal failure (additionally PRES the cause of her neuro issues). Given less likely lupus-mediated, her steroids were reduced to IV methylpred 32mg/daily (equivalent to home prednisone dose) and MMF was deferred. Code(s): N18.30 - Chronic kidney disease, stage 3 unspecified Plan: Stable. 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 Panel 4 Months M32.9 - Systemic lupus erythematosus, unspecified C Reactive Protein 4 Months M32.9 - Systemic lupus erythematosus, unspecified Erythrocyte Sedimentation Rate 4 Months M32.9 - Systemic lupus erythematosus, unspecified T Spot TB 4 Months Z11.7 - Encounter for testing for latent tuberculosis infection Anti DNA DS Antibody 4 Months M32.9 - Systemic lupus erythematosus, unspecified Complement C3 4 Months M32.9 - Systemic lupus erythematosus, unspecified Complement C4 4 Months M32.9 - Systemic lupus erythematosus, unspecified Protein Creatinine Ratio, Ur 4 Months M32.9 - Systemic lupus erythematosus, unspecified Cardiolipin Antibodies 4 Months R76.0 - Raised antibody titer Lupus Anticoagulant Panel 4 Months R76.0 - Raised antibody titer Hepatitis A,B,C Profile 4 Months Z11.59 - Encounter for screening for other viral diseases UA w Microscopic 4 Months M32.9 - Systemic lupus erythematosus, unspecified Beta-2 Glycoprotein Antibody 4 Months R76.0 - Raised antibody titer Coding Level of Care Code Est Pt Level 5 (63391) Diagnoses Other systemic lupus erythematosus with other organ involvement M32.19 Systemic lupus erythematosus organ involvement: other Systemic lupus erythematosus type: other CKD (chronic kidney disease) stage 3, GFR 30-59 ml/min N18.30 Anticardiolipin antibody positive R76.0 Long-term use of hydroxychloroquine Z79.175
== END 2023-07-20 10:43 | disposition home or self-care (01) ==
PROVIDERS: PCP Internal Medicine; Visit Provider Student in an Organized Health Care Education/Training Program
DX: M32.19 Other organ or system involvement in systemic lupus erythematosus (principal); N18.30 Chronic kidney disease, stage 3 unspecified; R76.0 Raised antibody titer; Z79.899 Other long term (current) drug therapy
CPT/HCPCS: 99215

== ENCOUNTER → 2023-07-20 09:43 | Outpatient (BNVA) | payer MEDICARE, OTHER, MEDICAID, SELFPAY | PROVIDERS: PCP Internal Medicine; Visit Provider Student in an Organized Health Care Education/Training Program | DX: M32.19 Other organ or system involvement in systemic lupus erythematosus (principal); N18.30 Chronic kidney disease, stage 3 unspecified; R76.0 Raised antibody titer; Z79.899 Other long term (current) drug therapy | CPT/HCPCS: 99212 ==

== ENCOUNTER 2023-09-27 13:32 | Outpatient (AMB) | payer BC, MEDICARE, MEDICAID, OTHER, SELFPAY ==
[2023-09-27 13:42] VITALS: BP 110/72; PULSE 73; O2SAT 96; BMI 29.0
--- NOTE | 2023-09-27 13:42 | HO.NEPHOV_ITS ---
Vital Signs 09/27/23 13:42 Height 5 ft 5 in Weight 174 lb BMI 29.0 BP 110/72 Blood Pressure Location Lt brachial Position Sitting Pulse 73 Pulse Source Pulse Oximeter Pulse Oximetry (%) 96 Oxygen Delivery Method Room Air Intake Visit Reasons: CKD/ Confirmed Accompanied by: Self / Same As Patient Allergies ibuprofen [From ADVIL] Allergy (Unknown, Verified 09/27/23 13:44) HIVES naproxen [From ALEVE] Allergy (Unknown, Verified 09/27/23 13:44) HIVES Nsaids Allergy (Intermediate, Uncoded 07/20/23 10:06) hives HPI Comments Details: . Peggy is a 48-year-old woman with a history of lupus. 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 Apparently she had a kidney biopsy a several years ago at [facility]. Results not available. Over the last few years renal function has been stable. She has been actively followed by Rheumatology. She had no specific complaints today. She has a history of in induced hypertension and she has been on labetalol 300 mg twice a day for about 4 years now. [facility] Medical History Leukopenia Anemia Surgical History Hx of tubal ligation Family History Mother No problems noted. Father No problems noted. Social History (Reviewed 09/27/23 @ 13:44 by Jacinta Thomas [facility]) Household Members: Family Housing: House Are you a primary live in caregiver to a significant other at home: No Do you presently have visiting nurse or other home services: No 75 years or older and lives alone: No Alcohol intake: never Patient Tobacco Use Status: Never used Tobacco e-Cigarette/Vaping Use: Never Used service: No Current occupational status: unemployed and disabled Physical Exam Vital Signs: Last Vital Signs Pulse 73 09/27/23 13:42 BP 110/72 09/27/23 13:42 Pulse Ox 96 09/27/23 13:42 Oxygen Delivery Method Room Air 09/27/23 13:42 BMI result Body Mass Index 29.0 Const General: comfortable; No acute distress Orientation/consciousness: patient oriented x3 Eyes General: appearance normal, both eyes and all related structures Visual Alvarado: normal visual alvarado by confrontation Neck Neck: Yes supple and Yes no JVD Resp Effort & Inspection: normal respiratory effort and respiratory effort not decreased Auscultation: rhonchi Cardio Palpation: no palpable S3 and no palpable S4 Heart sounds: no rubs GI Inspection: Yes normal to inspection Palpation (GI): Soft to palpation Percussion: Yes normal to percussion Auscultation: normal bowel sounds General: Yes no CVA tenderness Back/Spine/Pelvis Back: no CVA tenderness Skin General skin exam: no petechiae and no purpura Neuro General: patient oriented x3 and no focal motor deficits Extrem General: No clubbing and No edema Results Reviewed Results Reviewed: [place] [facility] [place] showed: Findings identify 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 Four of 20 glomeruli show active lesions; one of 20 shows a chronic lesion. The tubular immune complex deposits may contribute to the ATI, but the rapid creatinine rise requiring dialysis suggests an additional etiology. There is no interstitial fibrosis/tubular atrophy but mild vascular disease (intimal hyperplasia) is present. After discussion with Rheum/Renal it was thought that ATN predominantly the cause of her renal failure (additionally PRES the cause of her neuro issues). Given less likely lupus-mediated, her steroids were reduced to IV methylpred 32mg/daily (equivalent to home prednisone dose) and MMF was deferred. Nephrology Results: Hgb 12.8 g/dl (12.0-16.0) 03/09/23 WBC 6.5 X10*3/uL (4.8-10.8) 03/09/23 Plt Count 208 X10*3/uL (160-400) 03/09/23 Sodium 141 mmol/L (135-145) 09/27/23 Potassium 4.3 mmol/L (3.3-5.1) 09/27/23 Chloride 108 mmol/L (96-108) 09/27/23 Carbon Dioxide 24 mmol/L (22-29) 09/27/23 BUN 22 mg/dL (9-16) H 09/27/23 Creatinine 1.08 mg/dL (0.5-1.4) 05/06/24 Calcium 9.4 mg/dL (8.4-10.2) 09/27/23 Urine Protein Negative mg/dL (Neg-Trace) 09/27/23 Urine Creatinine 92.72 mg/dL 09/27/23 Protein/Creatinin Ratio 0.05 (<0.2) 02/16/23 Assessment & Plan Assessment & Plan (1) SLE (systemic lupus erythematosus): Comment: Onset 2009 with polyarthritis. +LAUREN++DsDNA +ACL IgG .HCQ started but not effective Methotrexate added in 2012 but caused nausea. Azathioprine added in 2014 but had to be stopped because of dizziness and lightheadedness. Trial of Humira in 2015 resulted in a flare of SLE with increased arthritis, leukopenia, skin rash, abdominal pain and fever. Put back on hydroxychloroquine October 2015. Eye exam OK 05/2019, 12/202006/29/2018 Single + anticardiolipin antibody- Negative SSA, SSB. 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 [facility] 06/2020 - required short term hemodialysis - due to ATN +/- class 3 lupus nephritis. CellCept discontinued due to leukopenia. 2021: Hydroxychloroquine continued and prednisone tapered off Code(s): M32.9 - Systemic lupus erythematosus, unspecified Category: Medical Qualifiers: Systemic lupus erythematosus organ involvement: other Systemic lupus erythematosus type: other Qualified Code(s): M32.19 - Other organ or system involvement in systemic lupus erythematosus Plan: Currently on Hydroxychloroquin Being followed by Check Urine pro: Creatinine and serum creatinine and follow complements (2) Hypertension: Code(s): I10 - Essential (primary) hypertension Category: Medical Plan: Goal is to taper anti hypertensives to the lowest possible dose Will try lowering Labetolol from 200 to 100 mg BID (3) CKD (chronic kidney disease) stage 3, GFR 30-59 ml/min: Comment: [place]03[place] [facility] [place] Findings identify 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 Four of 20 glomeruli show active lesions; one of 20 shows a chronic lesion. The tubular immune complex deposits may contribute to the ATI, but the rapid creatinine rise requiring dialysis suggests an additional etiology. There is no interstitial fibrosis/tubular atrophy but mild vascular disease (intimal hyperplasia) is present. After discussion with Rheum/Renal it was thought that ATN predominantly the cause of her renal failure (additionally PRES the cause of her neuro issues). Given less likely lupus-mediated, her steroids were reduced to IV methylpred 32mg/daily (equivalent to home prednisone dose) and MMF was deferred. and currently not on any Baseline creatinine 1.0 Code(s): N18.30 - Chronic kidney disease, stage 3 unspecified Category: Medical Plan: Continue to monitor renal function and urine protein excretion Avoid nephrotoxins NO changes were made today Orders: Orders Anti DNA DS Antibody 09/27/23 M32.19 - Other organ or system involvement in systemic lupus erythematosus Neutrophil Cytoplasma Ab 09/27/23 M32.19 - Other organ or system involvement in systemic lupus erythematosus Complement C4 09/27/23 M32.19 - Other organ or system involvement in systemic lupus erythematosus Basic Metabolic Panel 09/27/23 M32.19 - Other organ or system involvement in systemic lupus erythematosus Total Protein Urine Random 09/27/23 M32.19 - Other organ or system involvement in systemic lupus erythematosus Complement C3 09/27/23 M32.19 - Other organ or system involvement in systemic lupus erythematosus UA and rflx microscopic 09/27/23 M32.19 - Other organ or system involvement in systemic lupus erythematosus Creatinine Urine 09/27/23 N05.9 - Unspecified nephritic syndrome with unspecified morphologic changes, M32.19 - Other organ or system involvement in systemic lupus erythematosus Medications: Changed From labetalol 200 mg PO BID 180 tabs 1RF I10 - Essential (primary) hypertension To labetalol 100 mg PO BID 60 tabs 0RF I10 - Essential (primary) hypertension Coding Level of Care Code Est Pt Level 4 (50462) Diagnoses Other systemic lupus erythematosus with other organ involvement M32.19 Systemic lupus erythematosus organ involvement: other Systemic lupus erythematosus type: other Hypertension I10 CKD (chronic kidney disease) stage 3, GFR 30-59 ml/min N18.30
== END 2023-09-27 14:07 | disposition home or self-care (01) ==
PROVIDERS: PCP Internal Medicine; Visit Provider Internal Medicine Hypertension Specialist
DX: M32.19 Other organ or system involvement in systemic lupus erythematosus (principal); I10 Essential (primary) hypertension; N18.30 Chronic kidney disease, stage 3 unspecified
CPT/HCPCS: 99214

== ENCOUNTER 2023-09-27 13:32 | Outpatient (REF) | payer MEDICARE, MEDICAID, SELFPAY ==
[2023-09-27 16:17] LABS: Anion Gap 13 (12-20); Blood Urea Nitrogen 22 mg/dL (9-16); Calcium 9.4 mg/dL (8.4-10.2); Carbon Dioxide 24 mmol/L (22-29); Chloride 108 mmol/L (96-108); Estimated Glomerular Filt Rate 54; Glucose Random 81 mg/dL (60-115); Potassium 4.3 mmol/L (3.3-5.1); Sodium 141 mmol/L (135-145)
[2023-09-27 18:00] LABS: Appearance Urine Clear; Color Urine Yellow; Glucose Urine UA Negative (Negative); Leukocyte Esterase Urine Negative (Negative); Nitrite Urine Negative (Negative); PH 5.5 (5.0-9.0); Urine Blood Negative (Negative); Urine Ketones Negative (Negative); Urine Protein Negative (Neg-Trace)
[2023-09-27 19:06] LABS: Creatinine Urine 92.72 mg/dL; Total Protein Urine Random < 7 mg/dL (<12)
[2023-09-28 20:49] LABS: Anti DNA DS Antibody 1 IU/mL
[2023-09-29 08:29] LABS: Neutrophil Cyto Ab Screen NEGATIVE (NEGATIVE)
[2023-09-29 13:28] LABS: Complement C3 112 mg/dL (83-193)
== END 2023-09-27 13:33 | disposition home or self-care (01) ==
LOC: HO.LAB 13:32
PROVIDERS: PCP Internal Medicine; Visit Provider Internal Medicine Hypertension Specialist
DX: M32.19 Other organ or system involvement in systemic lupus erythematosus (principal); N05.9 Unspecified nephritic syndrome with unspecified morphologic changes; M32.9 Systemic lupus erythematosus, unspecified; I12.9 Hypertensive chronic kidney disease with stage 1 through stage 4 chronic kidney disease, or unspecified chronic kidney disease; N18.30 Chronic kidney disease, stage 3 unspecified
CPT/HCPCS: 36415; 80048; 81003; 82570; 84156; 86036; 86160; 86225

== ENCOUNTER 2023-11-08 13:42 | Outpatient (REF) | payer BC, MEDICARE, MEDICAID, SELFPAY ==
[2023-11-08 14:50] LABS: MANUAL DIFF FLAG NO
[2023-11-08 15:09] LABS: Basophils Absolute Auto 0.1 X10*3/uL (0.0-0.2); Basophils Percent Auto 0.7 % (0-2); Eosinophils Absolute Auto 0.1 X10*3/uL (0.0-0.4); Eosinophils Percent Auto 1.7 % (0-4); Hematocrit 41.4 % (37.0-47.0); Hemoglobin 14.2 g/dl (12.0-16.0); Imm Gran Abs Auto 0.04 X10*3/uL (0.00-0.03); Imm Gran Pct Auto 0.5 % (0.0-0.4); Lymphocytes Absolute Auto 2.5 X10*3/uL (1.2-4.9); Lymphocytes Percent Auto 32.9 % (20-40); Mean Corpuscular HGB Conc 34.3 g/dl (31.0-35.0); Mean Corpuscular Hemoglobin 29.8 pg (27.0-33.0); Mean Platelet Volume 12.4 fL (9.4-12.3); Monocytes Absolute Auto 0.5 X10*3/uL (0.1-1.2); Neutrophils Absolute Auto 4.3 x10*3/uL (2.0-8.3); Neutrophils Percent Auto 57.2 % (45-73); Platelet Count 220 X10*3/uL (160-400); Red Blood Count 4.76 X10*6/uL (4.20-5.50); Red Cell Distribution Width 13.1 % (11.0-16.0); White Blood Count 7.5 X10*3/uL (4.8-10.8)
[2023-11-08 15:33] LABS: Appearance Urine Clear; Color Urine Yellow; Glucose Urine UA Negative (Negative); Leukocyte Esterase Urine Negative (Negative); Nitrite Urine Negative (Negative); PH 5.5 (5.0-9.0); Specific Gravity - Urine 1.025 (1.005-1.025); Urine Blood Negative (Negative); Urine Ketones Negative (Negative); Urine Protein Negative (Neg-Trace)
[2023-11-08 15:36] LABS: Bacteria Urine None Seen (None Seen); Hyaline Casts Urine 0-2 /LPF (0-2); RBC Urine 0-2 /HPF (0-2); Squamous Epithelial Cell Urine 0-2 /HPF (0-2); WBC Urine 0-5 /HPF (0-5)
[2023-11-08 15:43] LABS: Alanine Aminotransferase 18 U/L (0-31); Albumin Level 4.7 g/dL (3.5-5.0); Alkaline Phosphatase 63 U/L (39-117); Anion Gap 11 (12-20); Aspartate Amino Transferase 21 U/L (5-31); Bilirubin Total 0.5 mg/dL (0.0-1.0); Blood Urea Nitrogen 23 mg/dL (9-16); C Reactive Protein 0.44 mg/dL (< or = 0.50); Calcium 9.7 mg/dL (8.4-10.2); Carbon Dioxide 25 mmol/L (22-29); Chloride 108 mmol/L (96-108); Estimated Glomerular Filt Rate 47; Glucose Random 83 mg/dL (60-115); Potassium 4.3 mmol/L (3.3-5.1); Sodium 140 mmol/L (135-145)
[2023-11-08 15:54] LABS: Erythrocyte Sedimentation Rate 4 MM/HR (0-20)
[2023-11-08 17:21] LABS: Creatinine Urine 175.31 mg/dL; Total Protein Urine Random < 7 mg/dL (<12)
[2023-11-09 03:59] LABS: HBS Num1 74.06 mIU/mL (0-7.99); HBc Num1 0.11 S/CO (0.00-0.79); HBsAGNum1 0.28 S/CO (0.00-0.99); Hepatitis A Antibody IgM 0.11 Index (0-0.79); Hepatitis B Core Antibody Nonreactive (Nonreactive); Hepatitis B Surface Antigen Negative (Negative); ~HepC Num1 0.06 S/CO (0.00-0.79); ~Hepatitis A Antibody IgM Nonreactive (Nonreactive); ~Hepatitis B Surface Antibody REACTIVE (Nonreactive); ~Hepatitis C Antibody Nonreactive (Nonreactive)
[2023-11-09 20:23] LABS: Cardiolipin IgG Ab <2.0 GPL-U/mL; Cardiolipin IgM Ab <2.0 MPL-U/mL
[2023-11-10 10:10] LABS: Complement C3 142 mg/dL (83-193)
[2023-11-10 18:28] LABS: Anti DNA DS Antibody 1 IU/mL
[2023-11-11 01:22] LABS: TS Negative Control Passed; TS Panel A 0; TS Panel B 0; TS Positive Control Passed; TSpotTB Negative (Negative)
[2023-11-14 11:49] LABS: Beta-2 Glycoprotein IgA <2.0 U/mL (<20.0); Beta-2 Glycoprotein IgG <2.0 U/mL (<20.0); Beta-2 Glycoprotein IgM <2.0 U/mL (<20.0)
[2023-11-15 20:53] LABS: PTT (LAC) Screen 32 sec (<=40)
== END 2023-11-08 13:43 | disposition home or self-care (01) ==
LOC: HO.LAB 13:42
PROVIDERS: Absent Provider Student in an Organized Health Care Education/Training Program; PCP Internal Medicine; Visit Provider Internal Medicine Hypertension Specialist
DX: M32.9 Systemic lupus erythematosus, unspecified (principal); R76.0 Raised antibody titer; Z11.7 Encounter for testing for latent tuberculosis infection
CPT/HCPCS: 36415; 80053; 81001; 82570; 84156; 85025; 85597; 85598; 85613; 85652; 85730; 86140; 86146; 86147; 86160; 86225; 86481; 86704; 86706; 86709; 86803; 87340

== ENCOUNTER 2023-11-08 13:42 | Outpatient (AMB) | payer BC, MEDICARE, MEDICAID, SELFPAY ==
[2023-11-08 13:58] VITALS: BP 107/76; PULSE 76; O2SAT 97; BMI 28.6
--- NOTE | 2023-11-08 13:58 | HO.NEPHOV ---
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: No Accompanied by: Self / Same As Patient Allergies ibuprofen [From ADVIL] Allergy (Unknown, Verified 11/08/23 14:00) HIVES naproxen [From ALEVE] Allergy (Unknown, Verified 11/08/23 14:00) HIVES Nsaids Allergy (Intermediate, Uncoded 07/20/23 10:06) hives Medication List - Last Reconciled 11/08/23 by Rodolfo Kenny MD acetaminophen (Tylenol Extra Strength) 1,000 mg PO Q6H PRN albuterol sulfate 90 mcg/actuation (Ventolin HFA) inhalation betamethasone valerate 0.1% appl topical hydroxychloroquine 300 mg (1.5 x 200 mg) PO DAILY ipratropium bromide 17 mcg/actuation (Atrovent HFA) inhalation PRN labetalol 100 mg PO BID levothyroxine 25 mcg PO DAILY omeprazole 20 mg PO DAILY triamcinolone acetonide 0.1% 1 appl topical DAILY HPI Comments Details: . Peggy is a 48-year-old woman with a history of lupus. 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 Apparently she had a kidney biopsy a several years ago at [facility]. Results not available. Over the last few years renal function has been stable. She has been actively followed by Rheumatology. She had no specific complaints today. She has a history of in induced hypertension and she has been on labetalol 300 mg twice a day for about 4 years now. 11/08/2023. Doing well no new issues today. [facility] Medical History Leukopenia Anemia Surgical History Hx of tubal ligation Family History Mother No problems noted. Father No problems noted. Social History Household Members: Family Housing: House Are you a primary laboratory animal caretaker to a significant other at home: No Do you presently have visiting nurse or other home services: No 75 years or older and lives alone: No Alcohol intake: never Patient Tobacco Use Status: Never used Tobacco e-Cigarette/Vaping Use: Never Used service: No Current occupational status: unemployed and disabled Physical Exam Vital Signs: Last Vital Signs Pulse 76 11/08/23 13:58 BP 107/76 11/08/23 13:58 Pulse Ox 97 11/08/23 13:58 Oxygen Delivery Method Room Air 11/08/23 13:58 BMI result Body Mass Index 28.6 Const General: comfortable; No acute distress Orientation/consciousness: patient oriented x3 Eyes General: appearance normal, both eyes and all related structures Visual Cardona: normal visual cardona by confrontation Neck Neck: Yes supple and Yes no JVD Resp Effort & Inspection: normal respiratory effort and respiratory effort not decreased Auscultation: rhonchi Cardio Palpation: no palpable S3 and no palpable S4 Heart sounds: no rubs GI Inspection: Yes normal to inspection Palpation (GI): Soft to palpation Percussion: Yes normal to percussion Auscultation: normal bowel sounds General: Yes no CVA tenderness Back/Spine/Pelvis Back: no CVA tenderness Skin General skin exam: no petechiae and no purpura Neuro General: patient oriented x3 and no focal motor deficits Extrem General: No clubbing and No edema Results Reviewed Nephrology Results: Hgb 12.8 g/dl (12.0-16.0) 03/09/23 WBC 6.5 X10*3/uL (4.8-10.8) 03/09/23 Plt Count 208 X10*3/uL (160-400) 03/09/23 Sodium 141 mmol/L (135-145) 09/27/23 Potassium 4.3 mmol/L (3.3-5.1) 09/27/23 Chloride 108 mmol/L (96-108) 09/27/23 Carbon Dioxide 24 mmol/L (22-29) 09/27/23 BUN 22 mg/dL (9-16) H 09/27/23 Creatinine 1.08 mg/dL (0.5-1.4) 09/27/23 Calcium 9.4 mg/dL (8.4-10.2) 09/27/23 Urine Protein Negative mg/dL (Neg-Trace) 09/27/23 Urine Creatinine 92.72 mg/dL 09/27/23 Protein/Creatinin Ratio 0.05 (<0.2) 02/16/23 Assessment & Plan Assessment & Plan (1) SLE (systemic lupus erythematosus): Comment: Onset 2009 with polyarthritis. +LAUREN++DsDNA +ACL IgG .HCQ started but not effective Methotrexate added in 2012 but caused nausea. Azathioprine added in 2014 but had to be stopped because of dizziness and lightheadedness. Trial of Humira in 2015 resulted in a flare of SLE with increased arthritis, leukopenia, skin rash, abdominal pain and fever. Put back on hydroxychloroquine October 2015. Eye exam OK 05/2019, 12/202006/29/2018 Single + anticardiolipin antibody- Negative SSA, SSB. 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 [facility] 06/2020 - required short term hemodialysis - due to ATN +/- class 3 lupus nephritis. CellCept discontinued due to leukopenia. 2021: Hydroxychloroquine continued and prednisone tapered off Code(s): M32.9 - Systemic lupus erythematosus, unspecified Category: Medical Qualifiers: Systemic lupus erythematosus organ involvement: other Systemic lupus erythematosus type: other Qualified Code(s): M32.19 - Other organ or system involvement in systemic lupus erythematosus Plan: Currently on Hydroxychloroquin Being followed by No significant proteinuria. Serum creatinine stable. Concur with current management plan for SLE. Continue to monitor urine protein excretion closely (2) Hypertension: Code(s): I10 - Essential (primary) hypertension Category: Medical Plan: Goal is to taper anti hypertensives to the lowest possible dose Blood pressure is still low however she is asymptomatic. Continue labetalol 100 mg twice a day. Encouraged her to keep monitoring blood pressure at home. His systolic blood pressure less than 100 I will decrease the lisinopril down to 50 mg a day. Orders: Orders Total Protein Urine Random 6 Months I10 - Essential (primary) hypertension, M32.19 - Other organ or system involvement in systemic lupus erythematosus Creatinine Urine 6 Months I10 - Essential (primary) hypertension, M32.19 - Other organ or system involvement in systemic lupus erythematosus Basic Metabolic Panel 6 Months I10 - Essential (primary) hypertension, M32.19 - Other organ or system involvement in systemic lupus erythematosus UA and rflx microscopic 6 Months I10 - Essential (primary) hypertension, M32.19 - Other organ or system involvement in systemic lupus erythematosus Coding Level of Care Code Est Pt Level 4 (94485) Diagnoses Other systemic lupus erythematosus with other organ involvement M32.19 Systemic lupus erythematosus organ involvement: other Systemic lupus erythematosus type: other Hypertension I10
== END 2023-11-08 14:12 | disposition home or self-care (01) ==
PROVIDERS: PCP Internal Medicine; Visit Provider Internal Medicine Hypertension Specialist
DX: M32.19 Other organ or system involvement in systemic lupus erythematosus (principal); I10 Essential (primary) hypertension
CPT/HCPCS: 99214

== ENCOUNTER 2023-11-10 13:29 | Outpatient (AMB) | payer MEDICARE, MEDICAID, SELFPAY ==
[2023-11-10 13:45] VITALS: BP 116/62; PULSE 78; O2SAT 98; BMI 28.6
--- NOTE | 2023-11-10 13:45 | A.OFFVIS_ITS ---
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 Accompanied by: Self / Same As Patient Allergies ibuprofen [From ADVIL] Allergy (Unknown, Verified 11/10/23 13:53) HIVES naproxen [From ALEVE] Allergy (Unknown, Verified 11/10/23 13:53) HIVES Nsaids Allergy (Intermediate, Uncoded 11/10/23 13:53) hives Medication List - Last Reconciled 11/10/23 by Bryson Mckeon MD acetaminophen (Tylenol Extra Strength) 1,000 mg PO Q6H PRN albuterol sulfate 90 mcg/actuation (Ventolin HFA) inhalation betamethasone valerate 0.1% appl topical hydroxychloroquine 300 mg (1.5 x 200 mg) PO DAILY ipratropium bromide 17 mcg/actuation (Atrovent HFA) inhalation PRN labetalol 100 mg PO BID levothyroxine 25 mcg PO DAILY omeprazole 20 mg PO DAILY triamcinolone acetonide 0.1% 1 appl topical DAILY HPI Comments Details: 48-year-old female with SLE returns for follow-up. On hydroxychloroquine 300 mg daily. Patient states that she is doing well overall. Gets some cramping pain in her calves with walking, she has not had any new skin rashes. She gets intermittent flare-ups of rashes on her scalp. Has not had any swollen joints. No fevers. She has been eating healthy. Overall doing better Most recent history by Dr. Méndez 02/2023: The patient returns for evaluation of her SLE. She remains on hydroxychloroquine at 300 mg daily. This seems to be tolerated well. She does not seem to have any joint swelling or pain, oral ulcers, fever, abdominal pain or chills. She does still have a few lesions on her scalp on which she uses some corticosteroid liquid. She was seen in Dermatology about this. Her hair seems to have been continue to return except in the area where she had the skin lesion. She remains on labetalol for her hypertension. Her iron tablets were discontinued. She remains on some omeprazole and levothyroxine. She still has some numbness in her feet and feels uncomfortable walking. She seems to recall she had some neurologic studies done somewhere that indicated a neuropathy but I do not have those available presently. [facility] Medical History Leukopenia Anemia Surgical History Hx of tubal ligation Family History Mother No problems noted. Father No problems noted. Social History Household Members: Family Housing: House Are you a primary clinical care manager to a significant other at home: No Do you presently have visiting nurse or other home services: No 75 years or older and lives alone: No Alcohol intake: never Patient Tobacco Use Status: Never used Tobacco e-Cigarette/Vaping Use: Never Used service: No Current occupational status: unemployed and disabled Review of Systems Musc Denies arthralgias, Denies joint swelling, Reports muscle cramps and Denies stiffness Skin/Breast Reports photosensitivity and Denies rash Physical Exam Vital Signs: Last Vital Signs Pulse 78 11/10/23 13:45 BP 116/62 11/10/23 13:45 Pulse Ox 98 11/10/23 13:45 Oxygen Delivery Method Room Air 11/10/23 13:45 BMI result Body Mass Index 28.6 Const General: cooperative, healthy appearing and comfortable Nutritional Appearance: overweight Orientation/consciousness: patient oriented x3 Limitations: no limitations HEENT Head: Yes normocephalic and Yes atraumatic Mouth: moist mucous membranes Resp Effort & Inspection: normal respiratory effort and able to speak in complete sentences Auscultation: clear to auscultation bilaterally Cardio Rate: regular rate Rhythm: regular rhythm GI Inspection: No distended Palpation (GI): Soft to palpation and nontender Skin Other: Slight hyperpigmentation on extensor aspect of arms, forearms, back, slight hyperpigmentation on the inside of her right ear Hyperpigmented lesion on scalp vertex Neuro General: patient oriented x3 Extrem Other: 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 +LAUREN++DsDNA +ACL IgG .HCQ started but not effective Methotrexate added in 2012 but caused nausea. Azathioprine added in 2014 but had to be stopped because of dizziness and lightheadedness. Trial of Humira in 2015 resulted in a flare of SLE with increased arthritis, leukopenia, skin rash, abdominal pain and fever. Put back on hydroxychloroquine October 2015. Eye exam OK 05/2019, 12/202006/29/2018 Single + anticardiolipin antibody- Negative SSA, SSB. 12/3018: Vaginal delivery of -created by [employer] 02/2020- started Cellcept with HCQ and prednisone 05/2020: hospitalized for flare with arthritis, abdominal pain, leukopenia; eventually developed PRES and transferred to [facility] [place] 06/2020 - required short term hemodialysis - due to ATN +/- class 3 lupus nephritis. CellCept discontinued due to leukopenia. 2021: Hydroxychloroquine continued and prednisone tapered off Code(s): M32.9 - Systemic lupus erythematosus, unspecified Category: Medical Qualifiers: Systemic lupus erythematosus type: other Systemic lupus erythematosus organ involvement: other Qualified Code(s): M32.19 - Other organ or system involvement in systemic lupus erythematosus Plan: 48-year-old female with SLE returns for follow-up. Doing well on hydroxychloroquine 300 mg daily. She has some hyperpigmentation of her skin which can be related hydroxychloroquine. Can consider lowering hydroxychloroquine dose in the future. 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 Four of 20 glomeruli show active lesions; one of 20 shows a chronic lesion. The tubular immune complex deposits may contribute to the ATI, but the rapid creatinine rise requiring dialysis suggests an additional etiology. There is no interstitial fibrosis/tubular atrophy but mild vascular disease (intimal hyperplasia) is pre sent. After discussion with Rheum/Renal it was thought that ATN predominantly the cause of her renal failure (additionally PRES the cause of her neuro issues). Given less likely lupus-mediated, her steroids were reduced to IV methylpred 32mg/daily (equivalent to home prednisone dose) and MMF was deferred. and currently not on any Baseline creatinine 1.0 Code(s): N18.30 - Chronic kidney disease, stage 3 unspecified Category: Medical Qualifiers: Chronic kidney disease stage 3 subtype: stage 3a (GFR 45-59) Qualified Code(s): N18.31 - Chronic kidney disease, stage 3a Plan: Stable. Continue to monitor. Follows with Dr. 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 Labs were collected. Results pending (4) Long-term use of hydroxychloroquine: Code(s): Z79.899 - Other computer terminal operator (current) drug therapy Category: Medical Plan: Patient stated that she has an upcoming appointment with real estate transaction manager soon and she will ask them to send me records Plan I spent 47 minutes reviewing patient's chart, evaluating patient, ordering diagnostic workup, counseling patient and documenting in the chart Orders: Orders Complete Blood Count Auto Diff 4 Months M32. - Other organ or system involvement in systemic lupus erythematosus Complement C4 4 Months M32. - Other organ or system involvement in systemic lupus erythematosus C Reactive Protein 4 Months M32. - Other organ or system involvement in systemic lupus erythematosus UA w Microscopic 4 Months M32. - Other organ or system involvement in systemic lupus erythematosus Comprehensive Met. Panel 4 Months 2. - Other organ or system involvement in systemic lupus erythematosus Anti DNA DS Antibody 4 Months 2. - Other organ or system involvement in systemic lupus erythematosus Complement C3 4 Months M32.19 - Other organ or system involvement in systemic lupus erythematosus Erythrocyte Sedimentation Rate 4 Months M32.19 - Other organ or system involvement in systemic lupus erythematosus Protein Creatinine Ratio, Ur 4 Months M32.19 - Other organ or system involvement in systemic lupus erythematosus DNA Double Stranded-Crithidia 4 Months 2.19 - Other organ or system involvement in systemic lupus erythematosus Coding Level of Care Code Est Pt Level 4 (06736) Complex EM visit Add On G2211 Diagnoses Other systemic lupus erythematosus with other organ involvement 2. Systemic lupus erythematosus type: other Systemic lupus erythematosus organ involvement: other Stage 3a chronic kidney disease N18.31 Chronic kidney disease stage 3 subtype: stage 3a (GFR 45-59) Anticardiolipin antibody positive R76.0 Long-term use of hydroxychloroquine Z79.899
== END 2023-11-10 14:27 | disposition home or self-care (01) ==
PROVIDERS: PCP Internal Medicine; Visit Provider Student in an Organized Health Care Education/Training Program
DX: M32.19 Other organ or system involvement in systemic lupus erythematosus (principal); N18.31 Chronic kidney disease, stage 3a; R76.0 Raised antibody titer; Z79.899 Other long term (current) drug therapy
CPT/HCPCS: 99214

== ENCOUNTER → 2023-11-10 13:29 | Outpatient (BNVA) | payer BC, MEDICARE, MEDICAID, SELFPAY | PROVIDERS: PCP Internal Medicine; Visit Provider Student in an Organized Health Care Education/Training Program ==

== ENCOUNTER 2024-03-09 09:34 | Outpatient (REF) | payer BC, MEDICARE, MEDICAID, SELFPAY ==
[2024-03-09 09:53] LABS: MANUAL DIFF FLAG NO
[2024-03-09 10:36] LABS: Basophils Absolute Auto 0.1 X10*3/uL (0.0-0.2); Basophils Percent Auto 0.7 % (0-2); Eosinophils Absolute Auto 0.2 X10*3/uL (0.0-0.4); Eosinophils Percent Auto 2.5 % (0-4); Hemoglobin 13.8 g/dl (12.0-16.0); Imm Gran Abs Auto 0.04 X10*3/uL (0.00-0.03); Imm Gran Pct Auto 0.6 % (0.0-0.4); Lymphocytes Absolute Auto 2.5 X10*3/uL (1.2-4.9); Lymphocytes Percent Auto 36.4 % (20-40); Mean Corpuscular HGB Conc 33.7 g/dl (31.0-35.0); Mean Corpuscular Hemoglobin 29.9 pg (27.0-33.0); Mean Corpuscular Volume 88.7 fL (80.0-98.0); Mean Platelet Volume 12.4 fL (9.4-12.3); Monocytes Absolute Auto 0.5 X10*3/uL (0.1-1.2); Neutrophils Absolute Auto 3.6 x10*3/uL (2.0-8.3); Neutrophils Percent Auto 52.8 % (45-73); Platelet Count 217 X10*3/uL (160-400); Red Blood Count 4.62 X10*6/uL (4.20-5.50); Red Cell Distribution Width 12.5 % (11.0-16.0); White Blood Count 6.7 X10*3/uL (4.8-10.8)
[2024-03-09 10:37] LABS: Appearance Urine Clear; Color Urine Yellow; Glucose Urine UA Negative (Negative); Leukocyte Esterase Urine Trace (Negative); Nitrite Urine Negative (Negative); PH 6.5 (5.0-9.0); UMIC TRIGGER UA YES; Urine Blood Negative (Negative); Urine Ketones Negative (Negative); Urine Protein Negative (Neg-Trace)
[2024-03-09 10:39] LABS: Bacteria Urine None Seen (None Seen); Hyaline Casts Urine 0-2 /LPF (0-2); RBC Urine 0-2 /HPF (0-2); WBC Urine 0-5 /HPF (0-5)
[2024-03-09 11:15] LABS: Erythrocyte Sedimentation Rate 5 MM/HR (0-20)
[2024-03-09 11:18] LABS: Alanine Aminotransferase 17 U/L (0-31); Albumin Level 4.5 g/dL (3.5-5.0); Alkaline Phosphatase 66 U/L (39-117); Anion Gap 9 (12-20); Aspartate Amino Transferase 19 U/L (5-31); Bilirubin Total 0.4 mg/dL (0.0-1.0); Blood Urea Nitrogen 23 mg/dL (9-16); C Reactive Protein 0.38 mg/dL (< or = 0.50); Calcium 9.1 mg/dL (8.4-10.2); Carbon Dioxide 26 mmol/L (22-29); Chloride 107 mmol/L (96-108); Estimated Glomerular Filt Rate 51; Glucose Random 85 mg/dL (60-115); Potassium 4.4 mmol/L (3.3-5.1); Sodium 138 mmol/L (135-145); Total Protein 7.6 g/dL (6.5-8.0)
[2024-03-09 11:20] LABS: Creatinine Urine 114.04 mg/dL; Total Protein Urine Random < 7 mg/dL (<12)
[2024-03-10 20:59] LABS: Anti DNA DS Antibody 1 IU/mL
[2024-03-15 15:22] LABS: DNAds, Crithidia Antibody Positive (Negative)
[2024-03-15 19:27] LABS: Complement C3 137 mg/dL (83-193)
== END 2024-03-09 09:35 | disposition home or self-care (01) ==
LOC: HO.LAB 09:34
PROVIDERS: Visit Provider Student in an Organized Health Care Education/Training Program
DX: M32.19 Other organ or system involvement in systemic lupus erythematosus (principal)
CPT/HCPCS: 36415; 80053; 81001; 82570; 84156; 85025; 85652; 86140; 86160; 86225; 86255

== ENCOUNTER 2024-03-17 15:22 | Outpatient (AMB) | payer MEDICARE, BC, MEDICAID, OTHER, SELFPAY ==
--- NOTE | 2024-03-17 15:42 | A.OFFVIS_ITS ---
Vital Signs 03/17/24 15:48 Height 5 ft 5 in Weight 179 lb 10.828 oz BMI 29.9 BP 115/62 Blood Pressure Location Rt brachial Position Sitting Pulse 70 Pulse Source Pulse Oximeter Pulse Oximetry (%) 98 Oxygen Delivery Method Room Air Intake Visit Reasons: SLE/CM Intake Note: Patient presents for SLE. Allergies ibuprofen [From ADVIL] Allergy (Unknown, Verified 03/17/24 15:47) HIVES naproxen [From ALEVE] Allergy (Unknown, Verified 03/17/24 15:47) HIVES Nsaids Allergy (Intermediate, Uncoded 11/10/23 13:53) hives Medication List - Last Reconciled 03/17/24 by Bryson Mckeon MD acetaminophen (Tylenol Extra Strength) 1,000 mg PO Q6H PRN albuterol sulfate 90 mcg/actuation (Ventolin HFA) inhalation betamethasone valerate 0.1% appl topical hydroxychloroquine 300 mg (1.5 x 200 mg) PO DAILY ipratropium bromide 17 mcg/actuation (Atrovent HFA) inhalation PRN labetalol 100 mg PO BID levothyroxine 25 mcg PO DAILY omeprazole 20 mg PO DAILY triamcinolone acetonide 0.1% 1 appl topical DAILY HPI Comments Details: 49-year-old female with SLE returns for follow-up. On hydroxychloroquine 300 mg daily. She states that she was hospitalized last month, she was found to have a clot in her left popliteal artery, she was evaluated by vascular surgery and started on baby aspirin. Patient states that she is doing well overall. She gets intermittent flare-ups of rashes on her scalp. Has not had any swollen joints. No fevers. She has been eating healthy. FORMERLY [facility], [facility] Medical History Leukopenia Anemia Surgical History Hx of tubal ligation Family History Mother No problems noted. Father No problems noted. Social History Household Members: Family Housing: House Are you a primary respiratory care program director to a significant other at home: No Do you presently have visiting nurse or other home services: No 75 years or older and lives alone: No Alcohol intake: never Patient Tobacco Use Status: Never used Tobacco e-Cigarette/Vaping Use: Never Used service: No Current occupational status: unemployed and disabled Review of Systems Musc Denies arthralgias, Denies joint swelling and Denies stiffness Skin/Breast Reports photosensitivity Physical Exam Vital Signs: Last Vital Signs Pulse 70 03/17/24 15:48 BP 115/62 03/17/24 15:48 Pulse Ox 98 03/17/24 15:48 Oxygen Delivery Method Room Air 03/17/24 15:48 BMI result Body Mass Index 29.9 Const General: cooperative, healthy appearing and comfortable Nutritional Appearance: overweight Orientation/consciousness: patient oriented x3 Limitations: no limitations HEENT Head: Yes normocephalic and Yes atraumatic Mouth: moist mucous membranes Resp Effort & Inspection: normal respiratory effort and able to speak in complete sentences Auscultation: clear to auscultation bilaterally Cardio Rate: regular rate Rhythm: regular rhythm GI Inspection: No distended Palpation (GI): Soft to palpation and nontender Skin Other: hyperpigmentation on extensor aspect of arms, forearms, back, slight hyperpigmentation on the inside of her right ear Hyperpigmented lesion on scalp vertex Neuro General: patient oriented x3 Extrem Other: 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 +LAUREN++DsDNA +ACL IgG .HCQ started but not effective Methotrexate added in 2012 but caused nausea. Azathioprine added in 2014 but had to be stopped because of dizziness and lightheadedness. Trial of Humira in 2015 resulted in a flare of SLE with increased arthritis, leukopenia, skin rash, abdominal pain and fever. Put back on hydroxychloroquine October 2015. Eye exam OK 05/2019, 12/202006/29/2018 Single + anticardiolipin antibody- Negative SSA, SSB. 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 [facility] 06/2020 - required short term hemodialysis - due to ATN +/- class 3 lupus nephritis. CellCept discontinued due to leukopenia. 2021: Hydroxychloroquine continued and prednisone tapered off Code(s): M32.9 - Systemic lupus erythematosus, unspecified Category: Medical Qualifiers: Systemic lupus erythematosus type: other Systemic lupus erythematosus organ involvement: other Qualified Code(s): M32.19 - Other organ or system involvement in systemic lupus erythematosus Plan: 48-year-old female with SLE returns for follow-up. Doing well on hydroxychloroquine 300 mg daily. He continues to have hyperpigmentation is likely related to hydroxychloroquine. Discussed with patient, we will lower hydroxychloroquine to 200 mg daily and closely monitor her lupus. If hydroxychloroquine needs to be switched to another DMARD. Benlysta can be considered. 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 Four of 20 glomeruli show active lesions; one of 20 shows a chronic lesion. The tubular immune complex deposits may contribute to the ATI, but the rapid creatinine rise requiring dialysis suggests an additional etiology. There is no interstitial fibrosis/tubular atrophy but mild vascular disease (intimal hyperplasia) is present. After discussion with Rheum/Renal it was thought that ATN predominantly the cause of her renal failure (additionally PRES the cause of her neuro issues). Given less likely lupus-mediated, her steroids were reduced to IV methylpred 32mg/daily (equivalent to home prednisone dose) and MMF was deferred. and currently not on any Baseline creatinine 1.0 Code(s): N18.30 - Chronic kidney disease, stage 3 unspecified Category: Medical Qualifiers: Chronic kidney disease stage 3 subtype: stage 3a (GFR 45-59) Qualified Code(s): N18.31 - Chronic kidney disease, stage 3a Plan: Stable. No proteinuria. Continue to monitor. Follows with Dr. Kenny (3) Anticardiolipin antibody positive: Comment: 05/2018- Repeat positive 08/30 and 09/06 Code(s): R76.0 - Raised antibody titer Category: Medical Plan: Unprovoked Popliteal artery clot last month, started on a baby aspirin by vascular surgery, most recent antiphospholipid antibody testing is negative, I will order a more broad antiphospholipid antibody syndrome panel. Referred patient to Hematology for evaluation of unprovoked arterial clot (4) Long-term use of hydroxychloroquine: Code(s): Z79.899 - Other skilled nursing (current) drug therapy Category: Medical Plan: Was evaluated by assistant clinical nurse manager in 2022 and cleared to continue hydroxychloroquine. She has a follow-up appointment soon (5) Peripheral arterial disease: Comment: 07/2021: Duplex arterial study shows focal segmental occlusive disease within the left proximal popliteal artery, reconstitution with collateral vasculature in the mid popliteal artery, three-vessel runoff. ANTHONY right posterior tibial 1.2, right dorsalis pedis 0.9, right digital index 0.5. Left posterior tibial 0.8, l eft dorsalis pedis 0.81, left digital index 0.6 Left popliteal artery clot 01/2025. Started on baby aspirin Code(s): I73.9 - Peripheral vascular disease, unspecified Category: Medical Plan I spent 47 minutes reviewing patient's chart, evaluating patient, ordering diagnostic workup, counseling patient and documenting in the chart Orders: Orders Anti DNA DS Antibody 3 Months M3. - Other organ or system involvement in systemic lupus erythematosus Complement C4 3 Months M3. - Other organ or system involvement in systemic lupus erythematosus Erythrocyte Sedimentation Rate 3 Months M3. - Other organ or system involvement in systemic lupus erythematosus Complete Blood Count Auto Diff 3 Months . - Other organ or system involvement in systemic lupus erythematosus Comprehensive Met. Panel 3 Months . - Other organ or system involvement in systemic lupus erythematosus Other Ref Test - Misc 3 Months R76.0 - Raised antibody titer Complement C3 3 Months . - Other organ or system involvement in systemic lupus erythematosus C Reactive Protein 3 Months M32. - Other organ or system involvement in systemic lupus erythematosus DNA Double Stranded-Crithidia 3 Months M32. - Other organ or system involvement in systemic lupus erythematosus Protein Creatinine Ratio, Ur 3 Months M32. - Other organ or system involvement in systemic lupus erythematosus Sjogren's Antibodies 3 Months M32. - Other organ or system involvement in systemic lupus erythematosus UA w Microscopic 3 Months M32. - Other organ or system involvement in systemic lupus erythematosus Referrals Hematology & Oncology Referral I70.202 - Unspecified atherosclerosis of absentee-shawnee arteries of extremities, left leg Medications: Changed From hydroxychloroquine 300 mg (1.5 x 200 mg) PO DAILY 45 tabs 5RF M32.9 - Systemic lupus erythematosus, unspecified To hydroxychloroquine 200 mg PO DAILY 90 tabs 1RF M32.9 - Systemic lupus erythematosus, unspecified Coding Level of Care Code Est Pt Level 4 (98093) Complex EM visit Add On G2211 Diagnoses Other systemic lupus erythematosus with other organ involvement M32.19 Systemic lupus erythematosus type: other Systemic lupus erythematosus organ involvement: other Stage 3a chronic kidney disease N18.31 Chronic kidney disease stage 3 subtype: stage 3a (GFR 45-59) Anticardiolipin antibody positive R76.0 Long-term use of hydroxychloroquine Z79.899 Peripheral arterial disease I73.9
[2024-03-17 15:48] VITALS: BP 115/62; PULSE 70; O2SAT 98; BMI 29.9
== END 2024-03-17 16:23 | disposition home or self-care (01) ==
PROVIDERS: PCP Internal Medicine; Visit Provider Student in an Organized Health Care Education/Training Program
DX: M32.19 Other organ or system involvement in systemic lupus erythematosus (principal); N18.31 Chronic kidney disease, stage 3a; R76.0 Raised antibody titer; Z79.899 Other long term (current) drug therapy; I73.9 Peripheral vascular disease, unspecified
CPT/HCPCS: 99214

== ENCOUNTER → 2024-03-17 15:22 | Outpatient (BNVA) | payer BC, MEDICARE, MEDICAID, SELFPAY | PROVIDERS: PCP Internal Medicine; Visit Provider Student in an Organized Health Care Education/Training Program ==

== ENCOUNTER 2024-05-11 08:06 | Outpatient (REF) | payer MEDICARE, BC, MEDICAID, OTHER, SELFPAY ==
[2024-05-11 09:08] LABS: Appearance Urine Cloudy; Color Urine Yellow; Glucose Urine UA Negative (Negative); Leukocyte Esterase Urine Negative (Negative); Nitrite Urine Negative (Negative); PH 5.5 (5.0-9.0); Specific Gravity - Urine 1.025 (1.005-1.025); Urine Blood Negative (Negative); Urine Ketones Negative (Negative); Urine Protein Negative (Neg-Trace)
[2024-05-11 09:32] LABS: Creatinine Urine 201.21 mg/dL; Total Protein Urine Random 10 mg/dL (<12)
[2024-05-11 09:32] LABS: Anion Gap 11 (12-20); Blood Urea Nitrogen 23 mg/dL (9-16); Calcium 9.1 mg/dL (8.4-10.2); Carbon Dioxide 25 mmol/L (22-29); Chloride 107 mmol/L (96-108); Estimated Glomerular Filt Rate 51; Glucose Random 101 mg/dL (60-115); Potassium 4.4 mmol/L (3.3-5.1); Sodium 139 mmol/L (135-145)
== END 2024-05-11 08:07 | disposition home or self-care (01) ==
LOC: HO.LAB 08:06
PROVIDERS: PCP Internal Medicine; Visit Provider Internal Medicine Hypertension Specialist
DX: I10 Essential (primary) hypertension (principal); M32.19 Other organ or system involvement in systemic lupus erythematosus
CPT/HCPCS: 36415; 80048; 81003; 82570; 84156

== ENCOUNTER → 2024-05-23 10:39 | Outpatient (BNV) | payer MEDICARE, BC, MEDICAID, OTHER, SELFPAY | PROVIDERS: PCP Internal Medicine; Visit Provider Internal Medicine Medical Oncology | DX: I82.432 Acute embolism and thrombosis of left popliteal vein (principal) | CPT/HCPCS: 99204 ==

== ENCOUNTER 2024-05-25 10:32 | Outpatient (AMB) | payer MEDICARE, MEDICAID, SELFPAY ==
[2024-05-25 10:39] VITALS: BP 118/86; PULSE 80; O2SAT 97
--- NOTE | 2024-05-25 10:39 | HO.NEPHOV_ITS ---
Vital Signs 05/25/24 10:39 Height 5 ft 5 in Weight 180 lb BMI 30.0 BP 118/86 Blood Pressure Location Rt brachial Position Sitting Pulse 80 Pulse Source Pulse Oximeter Pulse Oximetry (%) 97 Oxygen Delivery Method Room Air Intake Visit Reasons: 6 mon follow up/ Conf [employer] Required: No Accompanied by: Self / Same As Patient Allergies ibuprofen [From ADVIL] Allergy (Unknown, Verified 05/25/24 10:41) HIVES naproxen [From ALEVE] Allergy (Unknown, Verified 05/25/24 10:41) HIVES Nsaids Allergy (Intermediate, Uncoded 05/23/24 10:59) hives Medication List - Last Reconciled 05/25/24 by Rodolfo Kenny MD acetaminophen (Tylenol Extra Strength) 1,000 mg PO Q6H PRN albuterol sulfate 90 mcg/actuation (Ventolin HFA) 901 mcg inhalation DAILY aspirin 81 mg PO DAILY betamethasone valerate 0.1% 0.1 appl topical DAILY hydroxychloroquine 200 mg PO DAILY ipratropium bromide 17 mcg/actuation (Atrovent HFA) 17 mcg inhalation DAILY PRN labetalol 100 mg PO BID levothyroxine 25 mcg PO DAILY omeprazole 20 mg PO DAILY triamcinolone acetonide 0.1% 1 appl topical DAILY HPI Comments Details: . Peggy is a 48-year-old woman with a history of lupus. She was previously seen by another registration representative in the past she is decided to switch services back in 07/13/2022. Apparently she had a kidney biopsy a several years ago at [facility]. Results not available. Over the last few years renal function has been stable. She has been actively followed by Rheumatology. She had no specific complaints today. She has a history of in induced hypertension and she has been on labetalol 300 mg twice a day for about 4 years now. 11/08/2023. Doing well no new issues today. 05/25/24 Left pop artery occlusion. Seen by hematology and work up in progress BP has been low PFSH Medical History Leukopenia Anemia Surgical History Hx of tubal ligation Family History Mother No problems noted. Father No problems noted. Social History Household Members: Family Housing: House Are you a primary hospice spiritual care coordinator to a significant other at home: No Do you presently have visiting nurse or other home services: No 75 years or older and lives alone: No Alcohol intake: never Patient Tobacco Use Status: Never used Tobacco e-Cigarette/Vaping Use: Never Used service: No Current occupational status: unemployed and disabled Physical Exam Vital Signs: Last Vital Signs Pulse 80 05/25/24 10:39 BP 118/86 05/25/24 10:39 Pulse Ox 97 05/25/24 10:39 Oxygen Delivery Method Room Air 05/25/24 10:39 BMI result Body Mass Index 30.0 Comfortable Neck supple no JVD. Lungs entry equal no rales. Heart S1-S2 heard no gallop or rub. Abdomen soft nontender. Neuro alert awake oriented. No asterixis. Extremities no edema. Results Reviewed Nephrology Results: Hgb 14.2 g/dl (12.0-16.0) 05/23/24 WBC 7.6 X10*3/uL (4.8-10.8) 05/23/24 Plt Count 182 X10*3/uL (160-400) 05/23/24 Sodium 139 mmol/L (135-145) 05/23/24 Potassium 4.5 mmol/L (3.3-5.1) 05/23/24 Chloride 109 mmol/L (96-108) H 05/23/24 Carbon Dioxide 24 mmol/L (22-29) 05/23/24 BUN 21 mg/dL (9-16) H 05/23/24 Creatinine 1.02 mg/dL (0.5-1.4) 05/23/24 Calcium 9.6 mg/dL (8.4-10.2) 05/23/24 Urine Protein Negative mg/dL (Neg-Trace) 05/11/24 Urine Creatinine 201.21 mg/dL 05/11/24 Protein/Creatinin Ratio TNP 03/09/24 Assessment & Plan Assessment & Plan (1) Hypertension: Code(s): I10 - Essential (primary) hypertension Category: Medical Plan: Goal is to taper anti hypertensives to the lowest possible dose Blood pressure is still low however she is asymptomatic. DEcrease LAbetolol 50 mg BID . Encouraged her to keep monitoring blood pressure at home. IF systolic blood pressure less than 100 I will stop Labetolol Agree with ASA and follow up with Hematology UA benign- No RBC or protein Orders: Orders Basic Metabolic Panel 6 Months I10 - Essential (primary) hypertension Total Protein Urine Random 6 Months I10 - Essential (primary) hypertension UA and rflx microscopic 6 Months I10 - Essential (primary) hypertension Creatinine Urine 6 Months I10 - Essential (primary) hypertension Medications: Changed From labetalol 100 mg PO BID 180 tabs 1RF I10 - Essential (primary) hypertension To labetalol 50 mg (1/2 x 100 mg) PO BID 180 tabs 1RF I10 - Essential (primary) hypertension Coding Level of Care Code Est Pt Level 4 (57579) Diagnoses Hypertension I10
== END 2024-05-25 11:07 | disposition home or self-care (01) ==
PROVIDERS: PCP Internal Medicine; Visit Provider Internal Medicine Hypertension Specialist
DX: I10 Essential (primary) hypertension (principal)
CPT/HCPCS: 99214

== ENCOUNTER 2024-06-15 11:35 | Outpatient (REF) | payer MEDICARE, MEDICAID, SELFPAY | END 2024-06-15 11:36 | disposition home or self-care (01) | LOC: HO.MAMMO 11:35 | PROVIDERS: PCP Internal Medicine; Visit Provider Internal Medicine | DX: Z12.31 Encounter for screening mammogram for malignant neoplasm of breast (principal) | CPT/HCPCS: 77063; 77067 ==

== ENCOUNTER → 2024-06-15 12:00 | Outpatient (BNV) | payer MEDICARE, MEDICAID, SELFPAY | PROVIDERS: PCP Internal Medicine; Visit Provider Internal Medicine | DX: Z12.31 Encounter for screening mammogram for malignant neoplasm of breast (principal) | CPT/HCPCS: 77063; 77067 ==

== ENCOUNTER 2024-07-26 11:16 | Outpatient (REF) | payer MEDICARE, MEDICAID, SELFPAY ==
[2024-07-26 11:49] LABS: MANUAL DIFF FLAG NO
[2024-07-26 12:12] LABS: Basophils Percent Auto 0.5 % (0-2); Eosinophils Absolute Auto 0.1 X10*3/uL (0.0-0.4); Eosinophils Percent Auto 2.2 % (0-4); Hemoglobin 12.8 g/dl (12.0-16.0); Imm Gran Abs Auto 0.02 X10*3/uL (0.00-0.03); Imm Gran Pct Auto 0.3 % (0.0-0.4); Lymphocytes Absolute Auto 2.5 X10*3/uL (1.2-4.9); Lymphocytes Percent Auto 39.5 % (20-40); Mean Corpuscular HGB Conc 33.7 g/dl (31.0-35.0); Mean Platelet Volume 12.5 fL (9.4-12.3); Monocytes Absolute Auto 0.5 X10*3/uL (0.1-1.2); Monocytes Percent Auto 7.4 % (2-11); Neutrophils Absolute Auto 3.1 x10*3/uL (2.0-8.3); Neutrophils Percent Auto 50.1 % (45-73); Platelet Count 214 X10*3/uL (160-400); Red Blood Count 4.42 X10*6/uL (4.20-5.50); White Blood Count 6.3 X10*3/uL (4.8-10.8)
[2024-07-26 12:19] LABS: Appearance Urine Clear; Color Urine Yellow; Glucose Urine UA Negative (Negative); Leukocyte Esterase Urine Negative (Negative); Nitrite Urine Negative (Negative); Urine Blood Negative (Negative); Urine Ketones Negative (Negative); Urine Protein Negative (Neg-Trace)
[2024-07-26 12:24] LABS: Bacteria Urine None Seen (None Seen); Hyaline Casts Urine 0-2 /LPF (0-2); RBC Urine 0-2 /HPF (0-2); WBC Urine 0-5 /HPF (0-5)
[2024-07-26 12:52] LABS: Erythrocyte Sedimentation Rate 5 MM/HR (0-20)
[2024-07-26 13:00] LABS: Alanine Aminotransferase 21 U/L (0-31); Albumin Level 4.4 g/dL (3.5-5.0); Alkaline Phosphatase 69 U/L (39-117); Anion Gap 9 (12-20); Aspartate Amino Transferase 24 U/L (5-31); Bilirubin Total 0.4 mg/dL (0.0-1.0); Blood Urea Nitrogen 19 mg/dL (9-16); C Reactive Protein 0.28 mg/dL (< or = 0.50); Calcium 9.1 mg/dL (8.4-10.2); Carbon Dioxide 26 mmol/L (22-29); Chloride 108 mmol/L (96-108); Estimated Glomerular Filt Rate 55; Glucose Random 85 mg/dL (60-115); Potassium 4.3 mmol/L (3.3-5.1); Sodium 139 mmol/L (135-145); Total Protein 7.8 g/dL (6.5-8.0)
--- OUTSIDE RECORDS SUMMARY | 2024-07-26 13:41 | XMS_ITS | Clinical Summary ---
Author Organization [facility] Address [address] [place] [address] Care Team Providers Care [employer] Teacher Name Role Phone Marly Turcios DO Primary Care P rovider Allergies Active Allergy Reactions Criticality Noted Date Comments Nsaids 09/23/2020 Medications Medication Sig Dispensed Refills Start Date End Date Status levothyroxine (SYNTHROID) tablet 25 mcg Take 25 mcg by mouth every morning on an empty stomach. 0 Active ondansetron (ZOFRAN) 4 MG tablet Take 4 mg by mouth every 8 (eight) hours as needed for nausea. 0 Active Cholecalciferol 75 MCG (3000 UT) TABS Take 3,000 Units by mouth. 0 Active Magnesium 200 MG TABS Take 200 mg by mouth daily. 0 Active labetalol (NORMODYNE) 300 MG tablet Take 600 mg by mouth 3 (three) times a day. 0 Active Melatonin 5 MG TABS Take 5 mg by mouth every night at bedtime. 0 Active folic acid (FOLVITE) tablet 1 mg Take 1 mg by mouth daily. 0 Active ergocalciferol (VITAMIN D2) capsule 31886 units Take 50,000 Units by mouth once a week. 0 Active omeprazole (PriLOSEC) 40 MG capsule Take 40 mg by mouth daily. 0 Active acetaminophen (TYLENOL) 325 MG tablet Take 650 mg by mouth every 6 (six) hours as needed for pain. 0 Active albuterol 108 (90 Base) MCG/ACT inhaler Inhale 2 puffs into the lungs every 6 (six) hours as needed for wheezing. 0 Active hydroxychloroquine (PLAQUENIL) 200 MG tablet Take 200 mg by mouth daily. 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 Anemia Resolved Problems Problem Noted Date Diagnosed Date Resolved Date Anticardiolipin antibody positive 09/30/2020 Stage 3a chronic kidney disease 10/02/2020 Social History Tobacco Use Types Packs/Day Years Used Date Smoking Tobacco: Never Smokeless Tobacco: Never Alcohol Use Standard Drinks/Week Comments Never 0 (1 standard drink = 0.6 oz pur e alcohol) Sex and Gender Information Value Date Recorded Sex Assigned at Female 10/12/2018 9:20 AM EDT Gender Identity Not on file Sexual Orientation Not on file Job Start Date Occupation Industry Not on file Not on file Not on file Last Filed Vital Signs Vital Sign Reading Time Taken Comments Blood Pressure 135/79 09/30/2020 1:45 PM EDT Pulse 100 09/30/2020 1:45 PM EDT Temperature 36.4 ??C (97.5 ??F) 09/30/2020 1:45 PM ED T Respiratory Rate - - Oxygen Saturation 98% 09/30/2020 1:45 PM EDT Inhaled Oxygen Concentration - - Weight 62.5 kg (137 lb 12.8 oz) 09/30/2020 1:45 PM EDT Height 165.1 cm (5' 5 ) 09/30/2020 1:45 PM EDT Body Mass Index 22.93 09/30/2020 1:45 PM EDT Plan of Treatment Health Maintenance Due Date Last Done Comments Hepatitis B Vaccines (1 of 3 - 3-dose series) 1975 COVID-19 Vaccine (#1) 1976 Depression Screening 1988 Preventative Health Evaluation 01/12/1994 DTap / Tdap / Td (1 - Tdap) 01/12/1995 Cervical Cancer Screening (P ap Smear) 01/12/1997 Colon Cancer Screening (Colonoscopy) 01/12/2021 Influenza Vaccine (#1) 2024 01/23/2020 Hepatitis C Screening Completed 07/02/2020 Pneumococcal Vaccine Aged Out No long er eligible based on patient's age to complete this topic RSV Ped < 20 months Aged Out No longe r eligible based on patient's age to complete this topic Care Teams [employer] Teacher Relationship Specialty Start Date End Date Marly Turcios DO PCP - General Emergency Medical Service Manager 09/09/20
--- OUTSIDE RECORDS SUMMARY | 2024-07-26 13:41 | XMS_ITS | Encounter Summary ---
Author Organization [facility] Address [address] [place] [address] Phone Care Team Providers Care Speech Language Pathology Assistant Name Role Phone RubenRuddy Marly Primary Care Pro vider Encounter Details Date Type Department Care Team (Late st Contact Info) Description 04/11/2021 Telephone [facility] [address] [place] [address] Ritika Bentley Social History Tobacco Use Types Packs/Day Years Used Date Smoking Tobacco: Never Smokeless Tobacco: Never Comments Unknown Sex and Gender Information Value Date Recorded Sex Assigned at Not on file Legal Sex Female 8:57 AM EST Gender Identity Not on file Sexual Orientation Not on file documented as of this encounter Plan of Treatment Not on file documented as of this encounter Procedures Procedure Name Priority Date/Time Associated Diagnosis Comments ALBUMIN, URINE, RANDOM Routine 04/11/2021 3:22 PM EST URINALYSIS Routine 04/11/2021 3:22 PM EST documented in this encounter Results * Albumin, urine, random (04/11/2021 3:22 PM EST) Creatinine, Urine 122.07 mg/dL MANGUM Urine Microalbumin <5.0 mg/L ESTERJAYNE Microalbumin/Crea tinine Ratio TNP ug/mg cr KATHY Comment: Unable to calculate albumin/creatinine ratio due to low microalbumin or creatinine result. 04/11/2021 3:22 PM EST 04/11/2021 3:22 PM EST us Mike Mcarthur MD LAB URINE ORDERABLES Final Re sult Performing Organization Address [facility] Co de Phone Number [place] * (ABNORMAL) Urinalysis (04/11/2021 3:22 PM EST) Color Urine YELLOW [place] Appearance Urine CLEAR [place] pH Urine 6.0 5.0 - 8.0 [place] Glucose Urine NEG NEG MG/DL [place] Blood, Urine NEG NEG [place] Specific [place] Urine >=1.030(H) 1.005 - 1.025 [place] Protein Urine NEG NEG-TRACE MG/DL [place] Ketones, Urine NEG NEG MG/DL [place] Nitrite, Urine NEG NEG [place] Leukocyte Esterase Urine NEG NEG [place] 04/11/2021 3:22 PM EST 04/11/2021 3:22 PM EST us Mike Mcarthur MD LAB URINE ORDERABLES Final Re sult Performing Organization Address [facility] Co de Phone Number [place] documented in this encounter Visit Diagnoses Not on filedocumented in this encounter Care Teams Speech Language Pathology Assistant Relationship Specialty Start Date End Date Marly Castillo DO PCP - General Internal Medicine 09/25/20 documented as of this encounter
--- OUTSIDE RECORDS SUMMARY | 2024-07-26 13:41 | XMS_ITS | Clinical Summary ---
Author Organization [facility] Address [address] [facility] [address] [place] [address] Phone Care Team Providers Care [employer] Name Role Phone AlmasreyMarly Bartholomew DO Primary Care Pro vider Allergies Active Allergy Reactions Criticality Noted Date Comments Nsaids 09/23/2020 Mv & Min W-Fa-Dha Hives Medications albuterol HFA (PROVENTIL HFA;VENTOLIN HFA) 108 (90 Base) MCG/ACT inhaler Inhale 2 puffs every 6 (six) hours if needed Active hydroxychloroqu ine (PLAQUENIL) 200 MG tablet Take 200 mg by mouth daily Active ondansetron (ZOFRAN) 4 MG tablet Take 4 mg by mouth Active Melatonin 5 MG tablet Take 5 mg by mouth 07/26/2020 Active levothyroxine (SYNTHROID, LEVOTHROID) 25 MCG tablet Take 25 mcg by mouth 07/27/2020 Active acetaminophen (TYLENOL) 325 MG tablet Take by mouth every 6 (six) hours if needed for mild pain Active betamethasone valerate (VALISONE) 0.1 % cream 10/20/2020 Active Magnesium 200 MG tablet TAKE 1 TABLET BY MOUTH EVERY DAY 11/27/2020 Active omeprazole (PriLOSEC) [address] capsule TAKE 1 CAPSULE BY MOUTH DAILY FOR 360 DAYS. 11/06/2020 Active ferrous sulfate 325 (65 Fe) MG tablet Take 1 tablet by mouth 1 (one) time each day 06/18/2022 Active labetalol (NORMODYNE) 200 MG tablet TAKE 1 TABLET (200 MG) BY MOUTH IN THE MORNING AND IN THE EVENING 60 tablet 1 09/22/2022 Active Active Problems Problem Noted Date Diagnosed Date Stage 3a chronic kidney disease 04/14/2021 Presence of systemic lupus erythematosus (SLE) i nhibitor 04/14/2021 Renal osteodystrophy 04/14/2021 Chronic kidney disease due to benign hypertensio n 10/30/2020 Proteinuria 10/30/2020 Systemic lupus erythematosus 10/29/2020 Anemia 10/29/2020 Stage 3b chronic kidney disease 10/02/2020 Acute kidney failure 07/27/2020 Essential (primary) hypertension 07/27/2020 Retention of urine 07/27/2020 Type 2 diabetes mellitus without complication Urinary tract infection 07/27/2020 Acute nontraumatic kidney injury 07/08/2020 Resolved Problems Problem Noted Date Diagnosed Date Resolved Date Duodenitis without bleeding 07/27/2020 12/13/2020 Dysphagia 07/27/2020 12/13/2020 Gastritis without bleeding 07/27/2020 0 12/13/2020 Glomerular disease in system ic lupus erythematosus 07/27/2020 12/13/2020 Hypothyroidism 07/27/2020 12/13/2020 Other asthma 07/27/2020 12/13/2020 Other voice and resonance disorders 07/27/2020 12/13/2020 Other pancytopenia 07/27/2020 Other organ or system involv ement in systemic lupus erythematosus 07/27/2020 12/13/2020 Rheumatoid arthritis 07/27/2020 021 Dysphagia, oropharyngeal phase 07/26/2020 12/13/2020 Muscle wasting and atrophy, not elsewhere classified, lower leg 07/26/2020 12/13/2020 Other chronic pancreatitis 07/26/2020 0 12/13/2020 Other lack of coordination 07/26/2020 0 12/13/2020 Other reduced mobility 07/26/202012/13 Unsteadiness on feet 07/26/2020 021 Posterior reversible encephalopathy syndrome 12/13/2020 Seizure 06/30/2020 12/13/2020 Immunizations Name Administration Dates Next Due Influenza TIV (IM) 01/23/2020 PPD Test 07/26/2020 Family History Medical History Relation Comments Diabetes Maternal Grandmother Relation Status Comments Maternal Grandmother Social History Tobacco Use Types Packs/Day Years Used Date Smoking Tobacco: Never Smokeless Tobacco: Never Comments Unknown Sex and Gender Information Value Date Recorded Sex Assigned at Not on file Legal Sex Female 8:57 AM EST Gender Identity Not on file Sexual Orientation Not on file Last Filed Vital Signs Vital Sign Reading Time Taken Comments Blood Pressure 138/66 03/11/2023 10:09 AM EDT Pulse 67 03/11/2023 10:09 AM EDT Temperature - - Respiratory Rate - - Oxygen Saturation 98% 03/11/2023 10:09 AM EDT Inhaled Oxygen Concentration - - Weight 78.1 kg (172 lb 3.2 oz) 06/29/2022 3:56 P M EST Height 165.1 cm (5' 5 ) 06/29/2022 3:56 PM EST Body Mass Index 28.66 06/29/2022 3:56 PM EST Plan of Treatment Health Maintenance Due Date Last Done Comments Pneumococcal Vaccine: Pediat rics (0 to 5 Years) and At-Risk Patients (6 to 64 Years) (1 of 2 - PCV) 01/12/1982 Hepatitis B Vaccine (1 of 3 - 19+ 3-dose series) 01/12 Diabetes: Hemoglobin A1C 09/25/2020 Diabetes: Ophthalmology Exam 09/25/2020 Diabetes: Pedal Pulse Checked 09/25/2020 Diabetes: Sensory Foot Exam 09/25/2020 Diabetes: Visual Foot Exam 09/25/2020 Influenza Vaccine (#1) 2024 01/23/2020 Insurance [facility] ([id number]) [place] [id number] [facility] ([id number]) [place] [id number] Care Teams [employer] Relationship Specialty Start Date End Date Marly Castillo DO PCP - General Internal Medicine 09/25/20
--- OUTSIDE RECORDS SUMMARY | 2024-07-26 13:41 | XMS_ITS | Clinical Summary ---
Author Organization [address] Address [address] [place] [phone] Phone Care Team Providers Care Medical Technicians Name Role Phone Maritza Marroquin MD Primary Care Provider [phone] Allergies Active Allergy Reactions Criticality Noted Date Comments Nsaids (Non-Steroidal Anti-Inflammatory Drug) 10/30/2013 Skin reaction Other Itching 02/14/2014 Seasonal Allergies Other Reaction(s): Runny Nose/Rhinitis Medications albuterol HFA (PROAIR HFA ; PROVENTIL HFA ; VENTOLIN HFA) 90 mcg/actuation inhaler Inhale 2 Puffs into the lungs every 4 hours as needed for Wheezing for up to 30 days. 4 Active ipratropium HFA (Atrovent HFA) 17 mcg/actuation inhaler INHALE 2 PUFFS INTO THE LUNGS EVERY 4 HOURS NEEDED FOR WHEEZING, SHORTNESS OF BREATH OR COUGH 4 Active labetaloL (NORMODYNE) 100 mg tablet Take 1 tablet (100 mg total) by mouth 2 (two) times a day. Take 1 Tablet by mouth 2 times daily. Rheum Active levothyroxine (SYNTHROID, LEVOTHROID) 25 mcg tablet Take 1 tablet (25 mcg total) by mouth 1 (one) time each day. 4 Active betamethasone valerate (VALISONE) 0.1 % ointment Apply topically 2 (two) times a day. Active hydroxychloroqu ine (PLAQUENIL) 200 mg tablet Take 1.5 tablets (300 mg total) by mouth 1 (one) time each day. 1 Active aspirin 81 mg EC tablet Take 1 tablet (81 mg total) by mouth 1 (one) time each day. 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 Four of 20 glomeruli show active lesions; one of 20 shows a chronic lesion. The tubular immune complex deposits may contribute to the ATI, but the rapid creatinine rise requiring dialysis suggests an additional etiology. There is no interstitial fibrosis/tubular atrophy but mild vascular disease (intimal hyperplasia) is present. After discussion with Rheum/Renal it was thought that ATN predominantly the cause of her renal failure (additionally PRES the cause of her neuro issues). Given less likely lupus- mediated, her steroids were reduced to IV methylpred 32mg/daily (equivalent to home prednisone dose) and MMF was deferred. Hypothyroidism 10/07/2020 Stage 3b chronic kidney disease 09/10/2020 Overview (03/07/2024): Probably due to acute kidney injury due to hypotension 2019. Kidney biopsy at [facility] 2020 showed mild class III GN - Not specifically treated Type II diabetes mellitus with renal manifestati ons 09/10/2020 Primary hypertension 07/27/2020 Seizure 06/30/2020 Overview (03/07/2024): Not since age 14 Transaminitis 06/28/2019 Overview (03/07/2024): Elevated LFT. Negative Hepatitis panel. US showed fatty infilatration. In setting of overall flare of lupus 2019. Positive direct Hamida test 12/23/2018 Overview (03/07/2024): She had positive antibody screen last week with Rheum labs and notable for positive KELLIE and warm antibody. Eaeerly T&S cancelled. She is Rh positive. She has had a repeat sample as per blood bank recommendations which was sent to [facility] to strip the cells and determine if there is an aloantibody present which would require additional monitoring. NO ALLOANTIBODY Warm autoantibody positive. Repeat T&S one week prior to delivery and keep band on. Will have 2-4 units ready with this testing the week prior. Will set aside in the blood bank. Juan De Luna aware. Contact blood bank immediately when patient arrives. 12/23/2018 Last Assessment & Plan: Warm autoantibody positive. Repeat T&S one week prior to delivery and keep band on. Will have 2-4 units ready with this testing the week prior. Will set aside in the blood bank. Juan De Luna aware. Contact blood bank immediately when patient arrives. Tachycardia 10/03/2018 Overview (03/07/2024): Had cards consult 10/14 and felt likely stress related as had sx like this in the past with neg work up. Had Holter 10/25 and had no EKG changes with symptoms as reported. Sinus tachycardia at times up to 140 bpm. Was to have an echo to eval for possible cardiomyopathy, but not thought likely due to presentation. No additional intervention recommended Echo 01/02/19 trace mitral regurg and mild LVH, overall normal. BP that drt417/88 with normal pulse. Last Assessment & Plan: No further intervention as all work up has been negative. 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 Overview (03/07/2024): 05/2018- Repeat positive 08/30 and 09/06 Per MFM -Baby ASA and plan to continue x 6 weeks , add Lovenox prophylaxis 40 mg daily x 6 weeks if -Heme consult Last Assessment & Plan: Continue baby ASA and plan to continue x 6 weeks , add Lovenox prophylaxis 40 mg daily x 6 weeks if Heme consult Vitamin D deficiency 04/23/2016 Overview (03/07/2024): Last Assessment & Plan: Continue daily supplementation Vitamin B12 deficiency 04/23/2016 Overview (03/07/2024): Last Assessment & Plan: Continue monthly injection Systemic lupus erythematosus 12/05/2015 Overview (03/07/2024): Onset 2009 with polyarthritis. Rheumatoid factor negative. LAUREN and bkxi-bbahax-oamrtdqy DNA positive. Not much better with hydroxychloroquine. Methotrexate added in 2012 but caused nausea. Azathioprine added in 2014 but had to be stopped because of dizziness and lightheadedness. Trial of Humira in 2015 resulted in a flare of SLE with increased arthritis, leukopenia, skin rash, abdominal pain and fever. Put back on hydroxychloroquine October 2015. Eye exam OK 05/2019, 12/202006/29/2018 Single + anticardiolipin antibody- Negative SSA, SSB. 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 Last Assessment & Plan: Continue plan. Abnormal Pap smear of cervix 08/02/2014 Overview (03/07/2024): 01/2014 ASCUS, positive HRHPV 02/2014 Colpo BEVERLY 1 02/2016 LGSIL, positive HRHPV 11/2016 Colpo - insufficient sample 05/2017 ASCUS, positive HRHPV 03/2018 Colpo BEVERLY 1 with ASCUS, positive HRHPV pap at time of colpo Last Assessment & Plan: Repaet PP Pap Encounters Date Type Department Care Team Description 06/07/2024 4:11 PM EST - 06/07/2024 11:59 PM EST Hospital Encounter [address] [phone] Upper respiratory tract infection, unspecified type Discharge Disposition: Home or Self Care 06/07/2024 3:30 PM EST Office Visit Adult Medicine [address] [phone] Yossi Marshall PA Upper respiratory tract infection, unspecified type (Primary Dx) 06/07/2024 Nurse Triage Adult Medicine [address] [phone] Maritza Marroquin MD Chest Pain; Walk-in from Last 3 Months Immunizations Name Administration Dates Next Due Influenza Quadravalent, MDCK , 0.5ml, preservative free (Flucelvax) 6mo and older 06/30/2023,04/11/2021,03/27/2019 Influenza trivalent, 0.5mL, preservative free (Fluarix; FluLaval; Fluzone) ages 6mo and older (Afluria) 3 years and older 03/22/2018,03/05/2017,03/14/2014,2012 Influenza trivalent, MDCK, 0 .5mL, preservative free (Flucelvax) 6mo and older 04/18/2024 Influenza trivalent, with preservative (Fluzone; Afluria) 6mo and older 01/23/2020,03/13/2016 Influenza, Unspecified 03/22/2016,01/22/2015 PPD Test 07/26/2020, 6,08/14/2015,2013 Tdap Tetanus diptheria acell ular pertussis (Boostrix; Adacel) 7yo and older 11/22/2018 Surgical History Surgery Date Site/Laterality Comments TUBAL LIGATION 05/2019 PROCEDURE: HISTORICAL TUBAL LIGATION OTHER SURGICAL HISTORY 2020 Bilateral PROCEDURE: MAMMOGRAM, SCREENING, BOTH BREASTS COLONOSCOPY 03/2023 PROCEDURE: HISTORICAL COLONOSCOPY Medical History Medical History Date Comments Rheumatoid arthritis ([facility]) D X:Rheumatoid arthritis ([facility]); COMMENT: arthritis tx center Systemic lupus ([facility]) DX:Syst emic lupus ([facility]) Alopecia areata 08/30/2018 DX:Alopecia area ta Prediabetes 04/06/2021 DX:Prediabetes Diabetic neuropathy ([facility]) 08/06/2021 DX :Diabetic neuropathy ([facility]) Chronic kidney disease DX:Chroni c kidney disease Acquired hemolytic anemia ([facility]) DX:Acquired hemolytic anemia ([facility]) PVD (peripheral vascular dis ease) ([facility]) 02/07/2024 DX:PVD (peripheral vascular disease) ([facility]); COMMENT: 02/14 left popliteal artery occlusion Family History Medical History Relation Name Comments Other: alive and well Father Diabetes Maternal Grandmother stroke Other: alive and well Mother Breast cancer Neg Hx Colon cancer Neg Hx Ovarian cancer Neg Hx Uterine cancer Neg Hx Relation Name Status Comments Father Alive Maternal Grandfather Maternal Grandmother Alive Mother Alive Paternal Grandfather Paternal Grandmother Social History Tobacco Use Types Packs/Day Years Used Date Smoking Tobacco: Never Smokeless Tobacco: Never Alcohol Use Standard Drinks/Week Comments No 0 (1 standard drink = 0.6 oz pur e alcohol) Comments No Sex and Gender Information Value Date Recorded Sex Assigned at Not on file Legal Sex Female 10:11 AM EST Gender Identity Not on file Sexual Orientation Not on file Obstetrics History Last Filed Vital Signs Vital Sign Reading Time Taken Comments Blood Pressure 112/66 06/07/2024 3:42 PM EST Pulse 84 06/07/2024 3:42 PM EST Temperature 36.5 ??C (97.7 ??F) 06/07/2024 3:42 PM ES T Respiratory Rate 14 06/07/2024 3:42 PM EST Oxygen Saturation 99% 06/07/2024 3:42 PM EST Inhaled Oxygen Concentration - - Weight 80.7 kg (178 lb) 06/07/2024 3:42 PM EST Height 165.1 cm (5' 5 ) 06/07/2024 3:42 PM EST Body Mass Index 29.62 06/07/2024 3:42 PM EST Plan of Treatment Upcoming Encounters Date Type Department Care Team (Late st Contact Info) Description 01/08/2025 2:00 PM EDT Office Visit Pulmonolgy - [place] [address] [facility] [address] [place] [phone] Justyna Scanlon MD [address] [facility] [address] [place] [address] 03/09/2025 1:00 PM EDT Appointment [facility] Ultrasound [address] [place] [phone] Health Maintenance Due Date Last Done Comments Diabetes: Annual Foot Exam 01/12/1986 Hepatitis B Vaccines (1 of 3 - 19+ 3-dose series) 01/12/1995 Pneumococcal Vaccine: Pediatrics (0 to 5 Years) and At-Risk Patients (6 to 64 Years) (1 of 2 - PCV) 01/12/1995 COVID-19 Vaccine (3 - Pfizer risk series) 11/01/2020 10/04/2020, 09/13/2020 HIV Screening 05/02/2022 Medicare Annual Wellness Visit 05/02/2022 Social Influencers of Health Screening 05/02/2022 Diabetes: Annual Retina Eye Exam 04/13/2024 04/13/2023 Depression Screening 06/30/2024 06/30/2023 Diabetes: Blood Sugar Control Test (HGBA1C) 08/14/2024 02/15/2024, 02/15/2024 Diabetes: Annual Urine Albumin-Creatinine Ratio (uACR) 02/14/2025 02/15/2024, 07/01/2020 Diabetes: Annual GFR (Glomerular Filtration Rate) 02/14/2025 02/15/2024 Hypertension/CHF/CAD Annual BMP Blood Test 02/14/2025 02/15/2024 Breast Cancer Screening 06/10/2025 06/10/2023 Cervical Cancer Screening: HPV 12/25/2025 12/25/2020 DTaP,Tdap,and Td Vaccines (2 - Td or Tdap) 11/22/2028 11/22/2018 Cholesterol Screening (Lipid Panel) 02/14/2029 02/15/2024, 02/15/2024 Colorectal Cancer Screening: Colonoscopy 03/31/2033 03/31/2023 Hepatitis C Screening Completed 07/02/2020 Influenza Vaccine Completed 04/18/2024, , 04/11/2021, Additional history exists HIB Vaccines Aged Out No longer eligi ble based on patient's age to complete this topic HPV Vaccines Aged Out No longer eligi ble based on patient's age to complete this topic Hepatitis A Vaccines Aged Out No long er eligible based on patient's age to complete this topic IPV Vaccines Aged Out No longer eligi ble based on patient's age to complete this topic MMR Vaccines Aged Out No longer eligi ble based on patient's age to complete this topic Meningococcal ACWY Vaccine Aged Out N o longer eligible based on patient's age to complete this topic Meningococcal B Vacine Aged Out No lo nger eligible based on patient's age to complete this topic RSV Immunization Patients Under 20 months Aged Out No longer eligible based on patient's age to complete this topic Varicella Vaccines Aged Out No longer eligible based on patient's age to complete this topic Procedures Procedure Name Priority Date/Time Associated Diagnosis Comments XR CHEST 2 VIEWS Routine 06/07/2024 4:21 PM EST Upper respiratory tract infection, unspecified type URINE ALBUMIN CREATININE RATIO Routine 02/15/2024 HEMOGLOBIN A1C Routine 02/15/2024 LIPID PANEL Routine 02/15/2024 DEPRESSION SCREENING Routine 06/30/2023 DIABETES EYE EXAM Routine 04/13/2023 HPV Routine 12/25/2020 from Last 3 Months or Most Recently Relevant to Health Maintenance Results * XR Chest 2 Views (06/07/2024 4:21 PM EST) Anatomical Region Laterality Modality Body Radiographic Jazmine ging 06/07/2024 5:34 PM EST Impressions 06/07/2024 5:35 PM EST No acute cardiopulmonary process. -------- FINAL REPORT -------- Dictated By: Erich Nava Dictated Date: 06/07/2024 17:34 ET Assigned Physician: Erich Nava Reviewed and Electronically Signed By: Erich Nava Signed Date: 06/07/2024 17:35 ET Workstation ID: [id number] Transcribed By: Self Edit Transcribed Date: 06/07/2024 17:34 ET Narrative 06/07/2024 5:35 PM EST HISTORY: chest congestion and cough TECHNIQUE: PA and lateral radiographs of the chest COMPARISON: Chest radiograph from 06/20/2019 FINDINGS: There is a normal cardiomediastinal silhouette. The lungs are clear. ??Minimal degenerative changes of thoracic spine. Procedure Note Erich Nava MD - 06/07/2024 HISTORY: chest congestion and cough TECHNIQUE: PA and lateral radiographs of the chest COMPARISON: Chest radiograph from 06/20/2019 FINDINGS: There is a normal cardiomediastinal silhouette. The lungs are clear.Minimal degenerative changes of thoracic spine. IMPRESSION: No acute cardiopulmonary process. -------- FINAL REPORT -------- Dictated By: Erich Nava Dictated Date: 06/07/2024 17:34 ET Assigned Physician: Erich Nava Reviewed and Electronically Signed By: Erich Nava Signed Date: 06/07/2024 17:35 ET Workstation ID: [id number] Transcribed By: Self Edit Transcribed Date: 06/07/2024 17:34 ET Yossi HILL IMG XR PROCEDURES Final Result * HM Urine Albumin Creatinine Ratio (02/15/2024) HM Urine Albumin Creatinine Ratio Abstracted Historical Provider HEALTH MAINTENANCE Final Result * Hemoglobin A1c (02/15/2024) Hemoglobin A1C 5.6 <=6.5 % Blood Venous blood specimen / Unknown Historical Provider LAB BLOOD ORDERABLES Jodie l Result * Lipid panel (02/15/2024) [facility] LDL/HDL Ratio 3 0 - 4 Triglycerides 97 0 - 150 mg/dL Cholesterol 151 0 - 200 mg/dL HDL 51 >=40 mg/dL LDL Cholesterol 81 0 - 100 mg/dL Blood Venous blood specimen / Unknown [facility] Provider LAB BLOOD ORDERABLES Jodie l Result * Depression Screening (06/30/2023) [facility] Depression Screening Abstracted [facility] Provider HEALTH MAINTENANCE Final Result * Diabetes Eye Exam (04/13/2023) [facility] Diabetes: Annual Retina Eye Exam Abstracted Result [facility] Provider HEALTH MAINTENANCE Final Result * Cervical Cancer Screening: HPV (12/25/2020) [facility] Cervical Cancer Screening: HPV Negative, Abstracted [facility] Provider HEALTH MAINTENANCE Final Result from Last 3 Months or Most Recently Relevant to Health Maintenance Insurance MEDICARE [place]ICA[place] - [place] 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 Health Care Decision (hx) 08/07/2020 AD DAVIS DIRECTIVE Health Care Decision (hx) 08/07/2020 AD DAVIS DIRECTIVE Health Care Decision (hx) 08/07/2020 AD DAVIS DIRECTIVE Health Care Decision (hx) 08/07/2020 AD DAVIS DIRECTIVE Health Care Decision (hx) 08/07/2020 AD DAVIS DIRECTIVE Health Care Decision (hx) 08/07/2020 AD DAVIS DIRECTIVE Health Care Decision (hx) 08/07/2020 AD DAVIS DIRECTIVE Health Care Decision (hx) 08/07/2020 AD DAVIS DIRECTIVE Health Care Decision (hx) 08/07/2020 AD DAVIS DIRECTIVE Health Care Decision (hx) 08/07/2020 AD DAVIS DIRECTIVE Health Care Decision (hx) 08/07/2020 AD DAVIS DIRECTIVE Health Care Decision (hx) 08/07/2020 AD DAVIS DIRECTIVE Health Care Decision (hx) 08/07/2020 AD DAVIS DIRECTIVE Health Care Decision (hx) 08/07/2020 AD DAVIS DIRECTIVE Health Care Decision (hx) 08/07/2020 AD DAVIS DIRECTIVE Health Care Decision (hx) 08/07/2020 AD DAVIS DIRECTIVE Health Care Decision (hx) 08/07/2020 AD DAVIS DIRECTIVE Health Care Decision (hx) 08/07/2020 AD DAVIS DIRECTIVE Health Care Decision (hx) 08/07/2020 AD DAVIS DIRECTIVE Health Care Decision (hx) 08/07/2020 AD DAVIS DIRECTIVE Health Care Decision (hx) 08/07/2020 AD DAVIS DIRECTIVE Health Care Decision (hx) 08/07/2020 AD DAVIS DIRECTIVE Health Care Decision (hx) 08/07/2020 AD DAVIS DIRECTIVE Health Care Decision (hx) 08/07/2020 AD DAVIS DIRECTIVE Health Care Decision (hx) 08/07/2020 AD DAVIS DIRECTIVE Health Care Decision (hx) 08/07/2020 AD DAVIS DIRECTIVE Health Care Decision (hx) 08/02/2020 AD DAVIS DIRECTIVE Health Care Decision (hx) 08/02/2020 AD DAVIS DIRECTIVE Health Care Decision (hx) 08/02/2020 AD DAVIS DIRECTIVE Health Care Decision (hx) 08/02/2020 AD DAVIS DIRECTIVE Health Care Decision (hx) 08/02/2020 AD DAVIS DIRECTIVE Health Care Decision (hx) 08/02/2020 AD DAVIS DIRECTIVE Health Care Decision (hx) 08/02/2020 AD DAVIS DIRECTIVE Health Care Decision (hx) 08/02/2020 AD DAVIS DIRECTIVE Health Care Decision (hx) 08/02/2020 AD DAVIS DIRECTIVE Health Care Decision (hx) 08/02/2020 AD DAVIS DIRECTIVE Health Care Decision (hx) 08/02/2020 AD DAVIS DIRECTIVE Health Care Decision (hx) 08/02/2020 AD DAVIS DIRECTIVE Health Care Decision (hx) 08/02/2020 AD DAVIS DIRECTIVE Health Care Decision (hx) 07/01/2020 AD DAVIS DIRECTIVE Health Care Decision (hx) 07/01/2020 AD DAVIS DIRECTIVE Health Care Decision (hx) 07/01/2020 AD DAVIS DIRECTIVE Health Care Decision (hx) 07/01/2020 AD DAVIS DIRECTIVE Health Care Decision (hx) 07/01/2020 AD DAVIS DIRECTIVE Health Care Decision (hx) 07/01/2020 AD DAVIS DIRECTIVE Health Care Decision (hx) 07/01/2020 AD DAVIS DIRECTIVE Health Care Decision (hx) 07/01/2020 AD DAVIS DIRECTIVE Health Care Decision (hx) 07/01/2020 AD DAVIS DIRECTIVE Health Care Decision (hx) 07/01/2020 AD DAVIS DIRECTIVE Health Care Decision (hx) 07/01/2020 AD DAVIS DIRECTIVE Health Care Decision (hx) 07/01/2020 AD DAVIS DIRECTIVE Health Care Decision (hx) 07/01/2020 AD DAVIS DIRECTIVE Health Care Decision (hx) 07/01/2020 AD DAVIS DIRECTIVE Health Care Decision (hx) 06/24/2020 AD DAVIS DIRECTIVE Health Care Decision (hx) 06/24/2020 AD DAVIS DIRECTIVE Health Care Decision (hx) 06/24/2020 AD DAVIS DIRECTIVE Health Care Decision (hx) 06/24/2020 AD DAVIS DIRECTIVE Health Care Decision (hx) 06/24/2020 AD DAVIS DIRECTIVE Health Care Decision (hx) 06/24/2020 AD DAVIS DIRECTIVE Health Care Decision (hx) 06/24/2020 AD DAIVS DIRECTIVE Health Care Decision (hx) 06/24/2020 AD DAVIS DIRECTIVE Health Care Decision (hx) 06/24/2020 AD DAVIS DIRECTIVE Health Care Decision (hx) 06/24/2020 AD DAVIS DIRECTIVE Health Care Decision (hx) 06/24/2020 AD DAVIS DIRECTIVE Health Care Decision (hx) 06/24/2020 AD DAVIS DIRECTIVE Health Care Decision (hx) 06/24/2020 AD DAVIS DIRECTIVE Health Care Decision (hx) 06/24/2020 AD DAVIS DIRECTIVE Care Teams Medical Technicians Relationship Specialty Start Date End Date Marizta Marroquin MD [address] [place] [phone] PCP - General Internal Medicine 11/21/20
[2024-07-26 14:24] LABS: Creatinine Urine 156.35 mg/dL; Total Protein Urine Random < 7 mg/dL (<12)
[2024-07-27 13:47] LABS: Anti DNA DS Antibody 1 IU/mL; Antibody to SS-A Antigen <1.0 NEG AI (<1.0 NEG); Antibody to SS-B Antigen <1.0 NEG AI (<1.0 NEG)
[2024-07-27 20:13] LABS: Complement C3 135 mg/dL (83-193)
[2024-08-01 13:02] LABS: DNAds, Crithidia Antibody Positive (Negative)
== END 2024-07-26 11:17 | disposition home or self-care (01) ==
LOC: HO.LAB 11:16
PROVIDERS: PCP Internal Medicine; Visit Provider Student in an Organized Health Care Education/Training Program
DX: M32.19 Other organ or system involvement in systemic lupus erythematosus (principal); R76.0 Raised antibody titer
CPT/HCPCS: 80053; 81001; 82570; 83516; 84156; 85025; 85652; 86140; 86146; 86147; 86160; 86225; 86235; 86255

== ENCOUNTER 2024-08-10 08:08 | Outpatient (AMB) | payer MEDICARE, MEDICAID, SELFPAY ==
--- NOTE | 2024-08-10 08:14 | A.OFFVIS_ITS ---
Vital Signs 08/10/24 08:21 Height 5 ft 5 in Weight 182 lb 8.684 oz BMI 30.4 BP 132/80 Blood Pressure Location Lt brachial Position Sitting Pulse 75 Pulse Source Pulse Oximeter Pulse Oximetry (%) 97 Oxygen Delivery Method Room Air Intake Visit Reasons: SLE Intake Note: Patient presents for SLE. Allergies ibuprofen [From ADVIL] Allergy (Unknown, Verified 08/10/24 08:19) HIVES naproxen [From ALEVE] Allergy (Unknown, Verified 08/10/24 08:19) HIVES Nsaids Allergy (Intermediate, Uncoded 05/23/24 10:59) hives Medication List - Last Reconciled 08/10/24 by Delaney Phelan MD acetaminophen (Tylenol Extra Strength) 1,000 mg PO Q6H PRN albuterol sulfate 90 mcg/actuation (Ventolin HFA) 901 mcg inhalation DAILY aspirin 81 mg PO DAILY betamethasone valerate 0.1% 0.1 appl topical DAILY hydroxychloroquine 300 mg (1.5 x 200 mg) PO DAILY ipratropium bromide 17 mcg/actuation (Atrovent HFA) 17 mcg inhalation DAILY PRN labetalol 50 mg (1/2 x 100 mg) PO BID levothyroxine 25 mcg PO DAILY omeprazole 20 mg PO DAILY triamcinolone acetonide 0.1% 1 appl topical DAILY HPI Comments Details: Patient is a 49-year-old female with hypertension complicated by peripheral arterial disease, hypothyroidism, lupus complicated by lupus nephritis, CKD stage 3, and history of popliteal artery occlusion here today for follow up Interval History: Patient last seen 03/17/[address] Mckeon. At that time she was on hydroxychloroquine 300 mg daily doing well intermittent flare-ups involving rashes to her scalp but no swollen joints. She had new onset hyperpigmentation involving her bilateral arms and upper back. The concern was this could be Plaquenil induced and so her dose was decreased from 300 mg to 209 g daily. Had eye exam in February which did not show any pigmentation on the retina. And followed up with vascular. Today Patient has no new complaints. Hyperpigmentation to arms and back persists but she denies rashes, photosensitivity, alopecia, oral/nasal ulcers, sicca symptoms, lymphadenopathy, chest pain/shortness of breath, inflammatory type joint pain, foamy urine, lower extremity edema, muscle weakness Rheumatologic History: Onset 2009 with polyarthritis. +LAUREN++DsDNA +ACL IgG .HCQ started but not effective Methotrexate added in 2012 but caused nausea. Azathioprine added in 2014 but had to be stopped because of dizziness and lightheadedness. Trial of Humira in 2015 resulted in a flare of SLE with increased arthritis, leukopenia, skin rash, abdominal pain and fever. Put back on hydroxychloroquine October 2015. Eye exam [place] 05/2019, 12/202006/29/2018 Single + anticardiolipin antibody- Negative SSA, SSB. Negative on repeat 12/3018: Vaginal delivery of -complicated by HELP syndrome 02/2020- started Cellcept with HCQ and prednisone 05/2020: hospitalized for flare with arthritis, abdominal pain, leukopenia; eventually developed PRES and transferred to [facility] [facility]. [facility] 06/2020 - required short term hemodialysis - due to ATN +/- class 3 lupus nephritis. CellCept discontinued due to leukopenia. 2021: Hydroxychloroquine continued and prednisone tapered off Current Rheumatology Medication(s): Hydroxychloroquine 200mg daily PFSH Medical History Leukopenia Anemia Surgical History Hx of tubal ligation Family History Mother No problems noted. Father No problems noted. Social History Household Members: Family Housing: House Are you a primary daycare provider to a significant other at home: No Do you presently have visiting nurse or other home services: No 75 years or older and lives alone: No Alcohol intake: never Patient Tobacco Use Status: Never used Tobacco e-Cigarette/Vaping Use: Never Used service: No Current occupational status: unemployed and disabled Review of Systems Const Details: Review of Systems Constitutional: Denies fever, chills, weight loss ENT: Denies vision changes, eye pain or eye redness, dental caries, dry mouth GI: Denies nausea, vomiting, diarrhea, abdominal pain, change in BM Pulm: Denies SOB, SALVADOR, hemoptysis, wheezing Cards: Denies chest pain, palpitations Skin: Denies Raynaud's, rash, nail changes, photosensitivity, DOPSTER: Denies headaches, weakness, paresthesias, recurrent falls MSK: as per HPI All other systems reviewed and are unremarkable except noted above Physical Exam Vital Signs: Last Vital Signs Pulse 75 08/10/24 08:21 BP 132/80 08/10/24 08:21 Pulse Ox 97 08/10/24 08:21 Oxygen Delivery Method Room Air 08/10/24 08:21 BMI result Body Mass Index 30.4 Vital signs reviewed Physical Examination CONSTITUITIONAL Patient alert and cooperative. Well appearing and in no apparent painful distress HEENT Conjunctiva and sclera clear. ?Pupils equal round and reactive to light. ?No lymphadenopathy. ? CHEST/RESPIRATORY SYSTEM Normal respiratory effort and able to speak in complete sentences. ?Clear to auscultation bilaterally. ?No crackles, rales, rhonchi, wheezes heard. CARDIAC SYSTEM Regular rate and rhythm. ?S1 and S2 heard no murmurs. ?Radial pulses intact bilaterally MSK Hands: ?Good occupational health and safety officer strength bilaterally. No deformities noted. ?No synovitis noted to the MCPs, PIPs or DIPs. ?No tenderness to palpation of these joints. Wrists: ?Full range of motion at the wrists without pain. ?No tenderness to palpation or synovitis noted to the wrists. Elbows: Full range of motion without pain. No tenderness, weakness, swelling, increased warmth or erythema. Shoulders: Full range of motion without pain. No tenderness, weakness, swelling, increased warmth or erythema. Hips: Full range of motion without pain. Hip bursa: No tenderness to palpation Knees: ?Full range of motion. ?No tenderness, swelling, increased warmth or erythema.?No effusion or crepitations Ankles: Full range of motion. ?No tenderness, swelling, increased warmth or erythema.? Feet: ?Negative squeeze test. ?No tenderness to palpation or swelling of the MTPs. Tender points:?No tenderness to palpation of the bilateral trapezius, supraspinatus, greater trochanters, anterior costochondral junctions, bilateral gluteal areas, bilateral suboccipital muscle insertions SKIN Hyperpigmentation noted to the bilateral outer forearms and upper back. 1cm ulcer with healed base noted to her scalp. Results Reviewed Results Reviewed: Laboratory Tests 07/26/24 11:47 WBC 6.3 RBC 4.42 Hgb 12.8 Hct 38.0 Plt Count 214 ESR 5 Sodium 139 Potassium 4.3 Chloride 108 Carbon Dioxide 26 BUN 19 H Creatinine 1.07 AST 24 ALT 21 Alkaline Phosphatase 69 C-Reactive Protein 0.28 Total Protein 7.8 Albumin 4.4 Immunology labs 07/26/24 11:47 SS-A/Ro Antibody <1.0 NEG SS-B/La Antibody <1.0 NEG Double Strand DNA Ab 1 Anti-ds DNA Titer (Crith) 1:160 H Anti-ds DNA (Crithidia) Positive A Complement C3 135 Complement C4 19 Urine labs 07/26/24 11:35 Urine Color Yellow Urine Appearance Clear Urine Protein Negative Urine Blood Negative Urine Nitrite Negative Urine RBC 0-2 Urine WBC 0-5 U Random Total Protein < 7 Urine Creatinine 156.35 Assessment & Plan Assessment & Plan (1) SLE (systemic lupus erythematosus): Comment: Onset 2009 with polyarthritis. +LAUREN++DsDNA +ACL IgG .HCQ started but not effective Methotrexate added in 2012 but caused nausea. Azathioprine added in 2014 but had to be stopped because of dizziness and lightheadedness. Trial of Humira in 2015 resulted in a flare of SLE with increased arthritis, leukopenia, skin rash, abdominal pain and fever. Put back on hydroxychloroquine October 2015. Eye exam [place] 05/2019, 12/202006/29/2018 Single + anticardiolipin antibody- Negative SSA, SSB. 12/3018: Vaginal delivery of -created by [employer] syndrome 02/2020- started Cellcept with HCQ and prednisone 05/2020: hospitalized for flare with arthritis, abdominal pain, leukopenia; eventually developed PRES and transferred to [facility] [place]. [facility] 06/2020 - required short term hemodialysis - due to ATN +/- class 3 lupus nephritis. CellCept discontinued due to leukopenia. 2021: Hydroxychloroquine continued and prednisone tapered off Code(s): M32.9 - Systemic lupus erythematosus, unspecified Category: Medical Qualifiers: Systemic lupus erythematosus type: other Systemic lupus erythematosus organ involvement: other Qualified Code(s): M32.19 - Other organ or system involvement in systemic lupus erythematosus Plan: #SLE Patient is a 49 y.o. female with SLE complicated by LN currently in remission Labs and clinical exam consistent with remission There is concern about her hyperpigmentation may be related to her assisted plaquenil use. Discussed switching her medication to other lupus meds such as azathioprine or benlysta Patient is a little hesitant to start another medication given that she has had reactions in the past I gave her a handout on azathioprine and she will consider it Given her history of severe lupus she needs to be on medication to keep her lupus in remission. If we stop plaquenil we will need to start another medication Plan - Continue plaquenil 200mg daily - Consider changing to azathioprine or benlysta - RTC 3 months - Labs before visit: CBC, CMP, ESR, CRP, C3, C4, dsDNA, UA, UPC (2) CKD (chronic kidney disease) stage 3, GFR 30-59 ml/min: Comment: Kidney biopsy 07/03/2020 at [facility] [place] [facility] Findings identify 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 Four of 20 glomeruli show active lesions; one of 20 shows a chronic lesion. The tubular immune complex deposits may contribute to the ATI, but the rapid creatinine rise requiring dialysis suggests an additional etiology. There is no interstitial fibrosis/tubular atrophy but mild vascular disease (intimal hyperplasia) is present. After discussion with Rheum/Renal it was thought that ATN predominantly the cause of her renal failure (additionally PRES the cause of her neuro issues). Given less likely lupus-mediated, her steroids were reduced to IV methylpred 32mg/daily (equivalent to home prednisone dose) and MMF was deferred. and currently not on any Baseline creatinine 1.0 Code(s): N18.30 - Chronic kidney disease, stage 3 unspecified Category: Medical Qualifiers: Chronic kidney disease stage 3 subtype: stage 3a (GFR 45-59) Qualified Code(s): N18.31 - Chronic kidney disease, stage 3a Plan: #CKD in the setting of SLE LN Currently in remission Follows with renal Urine without protein, blood or cells (3) Long-term use of hydroxychloroquine: Code(s): Z79.899 - Other watermaster (current) drug therapy Category: Medical Plan: #Long-term Use of Hydroxychloroquine Discussed with patient the risks and benefits of hydroxychloroquine in managing the rheumatic condition Benefits include: - Reduced pain, reduce mortality, maintenance of remission and reduction of flares Risks include: - GI upset, skin hyperpigmentation, retinal toxicity (especially after more than 5 years of use), myopathy Advised yearly ophthalmology visits Last ophthalmology visit: 02/2024 Plan I spent 33 minutes reviewing the record and labs, taking a history, examining the patient, discussing the treatment plan, ordering diagnostic work up and documenting in the medical record Medications: New sucralfate 1 g PO BID 180 tabs 1RF K21.9 - Gastro-esophageal reflux disease without esophagitis Changed From hydroxychloroquine 300 mg (1.5 x 200 mg) PO DAILY 45 tabs 5RF M32.9 - Systemic lupus erythematosus, unspecified To hydroxychloroquine 200 mg PO DAILY 90 tabs 1RF NS M32.9 - Systemic lupus erythematosus, unspecified Coding Level of Care Code Est Pt Level 4 (48591) Complex EM visit Add On G2211 Diagnoses Other systemic lupus erythematosus with other organ involvement M32.19 Systemic lupus erythematosus type: other Systemic lupus erythematosus organ involvement: other Stage 3a chronic kidney disease N18.31 Chronic kidney disease stage 3 subtype: stage 3a (GFR 45-59) Long-term use of hydroxychloroquine Z79.899
--- OUTSIDE RECORDS SUMMARY | 2024-08-10 08:16 | XMS_ITS | Clinical Summary ---
Author Organization [facility] Address [address] [place] [address] Care Team Providers Care Inspector Publications Name Role Phone Marly Turcios DO Primary [...] daily. 0 Active ergocalciferol (VITAMIN D2) capsule 41358 units Take 50,000 Units by mouth once [...] age to complete this topic Care Teams Inspector Publications Relationship Specialty Start Date End Date Marly Turcios DO PCP - General Experimental Mechanic 09/09/20
--- OUTSIDE RECORDS SUMMARY | 2024-08-10 08:16 | XMS_ITS | Clinical Summary ---
Author Organization [address] Address [address] [place] [phone] Phone Care Team Providers Care Senior Mechanical Development Engineer Name Role Phone Maritza Marroquin MD Primary Care Provider [phone] Allergies Active Allergy Reactions Criticality Noted Date [...] 11/26/2020 Overview (03/07/2024): Kidney biopsy 07/03/2020 at [facility] [place] Kidney biopsy showed: Findings identify class III [...] due to hypotension 2019. Kidney biopsy at [facility] 2020 showed mild class III GN - [...] blood bank recommendations which was sent to [facility] to strip the cells and determine if [...] and mild LVH, overall normal. BP that tum774/88 with normal pulse. Last Assessment & Plan: [...] with polyarthritis. Rheumatoid factor negative. LAUREN and ggzj-mvlonw-ikxmcuko DNA positive. Not much better with hydroxychloroquine. [...] ledukopenia; eventually developed PRES and transferred to [facility] 06/2020 - required short term hemodialysis [...] - 06/07/2024 11:59 PM EST Hospital Encounter [address] [phone] Upper respiratory tract infection, unspecified type Discharge Disposition: Home or Self Care 06/07/2024 3:30 PM EST Office Visit Adult Medicine [address] [phone] Yossi Marshall PA Upper respiratory tract infection, unspecified type (Primary Dx) 06/07/2024 Nurse Triage Adult Medicine [address] [phone] Maritza Marroquin MD Chest Pain; Walk-in from [...] Date Comments Rheumatoid arthritis ([facility]) D X:Rheumatoid arthritis ([facility]); COMMENT: arthritis tx center Systemic lupus ([facility]) DX:Syst emic lupus ([facility]) Alopecia areata 08/30/2018 DX:Alopecia area ta Prediabetes 04/06/2021 DX:Prediabetes Diabetic neuropathy ([facility]) 08/06/2021 DX :Diabetic neuropathy ([facility]) Chronic kidney disease DX:Chroni c kidney disease Acquired hemolytic anemia ([facility]) DX:Acquired hemolytic anemia ([facility]) PVD (peripheral vascular dis ease) ([facility]) 02/07/2024 DX:PVD (peripheral vascular disease) ([facility]); COMMENT: 02/14 left popliteal artery occlusion Family [...] Care Team (Late st Contact Info) Description 08/17/2024 9:30 AM EDT Office Visit [place] [facility] [place] [address] [place] [address] Yossi Marshall PA [address] [place], [place] 11/17/2024 11:15 AM EDT Office Visit Obstetrics and Gynecology - [address] [phone] Louann Nelson CNM [address] [place] [phone] 01/08/2025 2:00 PM EDT Office Visit Pulmonolgy - [place] [address] [phone] Justyna Scanlon MD [address] [phone] 03/09/2025 1:00 PM EDT Appointment [facility] Ultrasound [address] [place] [phone] Health Maintenance Due Date Last Done Comments [...] EST Upper respiratory tract infection, unspecified type HM URINE ALBUMIN CREATININE RATIO Routine 02/15/2024 HEMOGLOBIN [...] Signed Date: 06/07/2024 17:35 ET Workstation ID: [id number] Transcribed By: Self Edit Transcribed Date: 06/07/2024 [...] Signed Date: 06/07/2024 17:35 ET Workstation ID: [id number] Transcribed By: Self Edit Transcribed Date: 06/07/2024 17:34 ET Result [facility] IMG XR PROCEDURES Final Result * Urine Albumin Creatinine Ratio (02/15/2024) [facility] Urine Albumin Creatinine Ratio Abstracted Result [facility] Provider HEALTH MAINTENANCE Final Result * Hemoglobin A1c (02/15/2024) [facility] Hemoglobin A1C 5.6 <=6.5 % Blood Venous blood specimen / Unknown Result [facility] Provider LAB BLOOD ORDERABLES Jodie l Result * Lipid panel (02/15/2024) [facility] LDL/HDL Ratio 3 0 - 4 Triglycerides 97 0 - 150 mg/dL Cholesterol 151 0 - 200 mg/dL HDL 51 >=40 mg/dL LDL Cholesterol 81 0 - 100 mg/dL Blood Venous blood specimen / Unknown Result [facility] Provider LAB BLOOD ORDERABLES Jodie l Result * Depression Screening (06/30/2023) [facility] Depression Screening Abstracted Result [facility] Provider HEALTH MAINTENANCE Final Result * Diabetes Eye Exam (04/13/2023) [facility] Diabetes: Annual Retina Eye Exam Abstracted Result [facility] Provider HEALTH MAINTENANCE Final Result * Cervical Cancer Screening: HPV (12/25/2020) [facility] Cervical Cancer Screening: HPV Negative, Abstracted Result [facility] Provider HEALTH MAINTENANCE Final Result from Last 3 Months or Most Recently Relevant to Health Maintenance Insurance [place]ICARE [place] [facility] Advance Directives Documents on File Type Date Recorded Patient Blocker And Sewer Expl anation Health Care Decision (hx) 08/07/2020 [...] (hx) 06/24/2020 AD DAVIS DIRECTIVE Care Teams Senior Mechanical Development Engineer Relationship Specialty Start Date End Date Maritza Marroquin MD [address] [place] [address] PCP - General Internal Medicine 11/21/20
--- OUTSIDE RECORDS SUMMARY | 2024-08-10 08:16 | XMS_ITS | Encounter Summary ---
Author Organization [facility] Address [address] [place] [address] Phone Care Team Providers Care Computer Hardware Technician Name Role Phone RubenRuddy Marly Primary Care Pro vider Encounter Details Date Type Department Care Team (Late st Contact Info) Description 04/11/2021 Telephone [facility] [address] [place] [address] Ritika Bentley Social History Tobacco [...] 3:22 PM EST) Creatinine, Urine 122.07 mg/dL [place] Urine Microalbumin <5.0 mg/L ESTERJAYNE Microalbumin/Crea tinine Ratio TNP ug/mg cr KATHY Comment: Unable to calculate albumin/creatinine ratio due to low microalbumin or creatinine result. 04/11/2021 3:22 PM EST 04/11/2021 3:22 PM EST us Mike Mcarthur MD LAB URINE ORDERABLES Final Re sult Performing Organization Address [facility] Co de Phone Number [place] * (ABNORMAL) Urinalysis (04/11/2021 3:22 PM EST) Color Urine YELLOW [place] Appearance Urine CLEAR [place] pH Urine 6.0 5.0 - 8.0 [place] Glucose Urine NEG NEG MG/DL [place] Blood, Urine NEG NEG [place] Specific [place] Urine >=1.030(H) 1.005 - 1.025 [place] Protein Urine NEG NEG-TRACE MG/DL [place] Ketones, Urine NEG NEG MG/DL [place] Nitrite, Urine NEG NEG [place] Leukocyte Esterase Urine NEG NEG [place] 04/11/2021 3:22 PM EST 04/11/2021 3:22 PM EST us Mike Mcarthur MD LAB URINE ORDERABLES Final Re sult Performing Organization Address [facility] Co de Phone Number [place] documented in this encounter Visit Diagnoses Not on filedocumented in this encounter Care Teams Computer Hardware Technician Relationship Specialty Start Date End Date Marly Castillo DO PCP - General Internal Medicine 09/25/20 documented as of this encounter
--- OUTSIDE RECORDS SUMMARY | 2024-08-10 08:16 | XMS_ITS | Clinical Summary ---
Author Organization [facility] Address [address] [facility] [address] [place] [address] Phone Care Team Providers Care Surgical Specialist Name Role Phone AlmasreyMarly Bartholomew DO Primary [...] 09/25/2020 Influenza Vaccine (#1) 2024 01/23/2020 Insurance [facility] ([id number]) SERGIO MARTIN [id number] [facility] ([id number]) SERGIO MARTIN [id number] Care Teams Surgical Specialist Relationship Specialty Start Date End Date Marly Castillo DO PCP - General Internal Medicine 09/25/20
[2024-08-10 08:21] VITALS: BP 132/80; PULSE 75; O2SAT 97; BMI 30.4
== END 2024-08-10 09:00 | disposition home or self-care (01) ==
LOC: HO.RHE 08:09
PROVIDERS: PCP Internal Medicine; Visit Provider Student in an Organized Health Care Education/Training Program
DX: M32.19 Other organ or system involvement in systemic lupus erythematosus (principal); N18.31 Chronic kidney disease, stage 3a; Z79.899 Other long term (current) drug therapy
CPT/HCPCS: 99214; G2211

== ENCOUNTER → 2024-08-10 08:08 | Outpatient (BNVA) | payer MEDICARE, MEDICAID, SELFPAY | PROVIDERS: PCP Internal Medicine; Visit Provider Student in an Organized Health Care Education/Training Program | DX: M32.19 Other organ or system involvement in systemic lupus erythematosus (principal); I73.9 Peripheral vascular disease, unspecified; I12.9 Hypertensive chronic kidney disease with stage 1 through stage 4 chronic kidney disease, or unspecified chronic kidney disease; N18.31 Chronic kidney disease, stage 3a; K21.9 Gastro-esophageal reflux disease without esophagitis; Z79.899 Other long term (current) drug therapy | CPT/HCPCS: 99212 ==

== ENCOUNTER 2024-11-20 13:42 | Outpatient (REF) | payer MEDICARE, MEDICAID, SELFPAY ==
--- OUTSIDE RECORDS SUMMARY | 2024-11-20 14:13 | XMS_ITS | Encounter Summary ---
Author Organization [facility] Address [address] [place] [address] Phone Care Team Providers Care Applications Programmer Name Role Phone RubenRuddy Marly Primary Care Pro vider Encounter Details Date Type Department Care Team (Late st Contact Info) Description 04/11/2021 Telephone [facility] [address] [place] [address] Ritika Bentley Social History Tobacco [...] 3:22 PM EST) Creatinine, Urine 122.07 mg/dL [place] Urine Microalbumin <5.0 mg/L ESTERJAYNE Microalbumin/Crea tinine Ratio TNP ug/mg cr KATHY Comment: Unable to calculate albumin/creatinine ratio due to low microalbumin or creatinine result. 04/11/2021 3:22 PM EST 04/11/2021 3:22 PM EST us Mike Mcarthur MD LAB URINE ORDERABLES Final Re sult Performing Organization Address [facility] Co de Phone Number [place] * (ABNORMAL) Urinalysis (04/11/2021 3:22 PM EST) Color Urine YELLOW [place] Appearance Urine CLEAR [place] pH Urine 6.0 5.0 - 8.0 [place] Glucose Urine NEG NEG MG/DL [place] Blood, Urine NEG NEG [place] Specific [place] Urine >=1.030(H) 1.005 - 1.025 [place] Protein Urine NEG NEG-TRACE MG/DL [place] Ketones, Urine NEG NEG MG/DL [place] Nitrite, Urine NEG NEG [place] Leukocyte Esterase Urine NEG NEG [place] 04/11/2021 3:22 PM EST 04/11/2021 3:22 PM EST us Mike Mcarthur MD LAB URINE ORDERABLES Final Re sult Performing Organization Address [facility] Co de Phone Number [place] documented in this encounter Visit Diagnoses Not on filedocumented in this encounter Care Teams Applications Programmer Relationship Specialty Start Date End Date Marly Castillo DO PCP - General Internal Medicine 09/25/20 documented as of this encounter
--- OUTSIDE RECORDS SUMMARY | 2024-11-20 14:13 | XMS_ITS | Clinical Summary ---
Author Organization [facility] Address [address] [place] [address] Care Team Providers Care Radio Communications Mechanician Name Role Phone Marly Turcios DO Primary [...] daily. 0 Active ergocalciferol (VITAMIN D2) capsule 14652 units Take 50,000 Units by mouth once [...] 100 09/30/2020 1:45 PM EDT Temperature 36.4 C (97.5 F) 09/30/2020 1:45 PM EDT Respiratory Rate - - Oxygen Saturation 98% [...] Colon Cancer Screening (Colonoscopy) 01/12/2021 Influenza Vaccine (Season Ended) 2025 01/23/20 Hepatitis C Screening Completed 07/02/2020 Pneumococcal Vaccine Aged Out No long er eligible based on patient's age to complete this topic RSV Ped < 20 months Aged Out No longe r eligible based on patient's age to complete this topic Care Teams Radio Communications Mechanician Relationship Specialty Start Date End Date Marly Turcios DO PCP - General Tool Crib Clerk 09/09/20
--- OUTSIDE RECORDS SUMMARY | 2024-11-20 14:13 | XMS_ITS | Clinical Summary ---
Author Organization [address] Address [address] [place] [phone] Phone Care Team Providers Care Cco & President Name Role Phone Maritza Marroquin MD Primary Care Provider [phone] Allergies Active Allergy Reactions Criticality Noted Date [...] by mouth 2 times daily. Rheum Active betamethasone valerate (VALISONE) 0.1 % ointment Apply topically 2 (two) times a day. Active hydroxychloroqu ine (PLAQUENIL) 200 mg tablet Take 1.5 tablets (300 mg total) by mouth 1 (one) time each day. Active aspirin 81 mg EC tablet Take 1 tablet (81 mg total) by mouth 1 (one) time each day. Active levothyroxine (SYNTHROID, LEVOTHROID) 25 mcg tablet Take 1 tablet (25 mcg total) by mouth 1 (one) time each day. 90 tablet 3 5 Active Active Problems Problem Noted Date Diagnosed Date Atypical chest pain 10/12/2024 Assessment & Plan (10/13/2024 11:39 AM EDT): Atypical chest discomfort and dyspnea on exertion. Her stress test did not clearly disclose evidence of coronary artery disease however functional capacity was fair at best. Given her medical history which includes peripheral arterial disease and a chronic inflammatory condition, I recommended we evaluate directly for CAD with a coronary CTA. She is in agreement. I also recommended a cardiac ultrasound to evaluate heart structure and function given her complaint of dyspnea on exertion. Will plan to follow-up following completion of the studies and review them directly. 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 Continue low-dose of aspirin indefinitely. Her last LDL was 81. 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) ([facility] V24, [facility] V28) 11/26/2020 Overview (03/07/2024): Kidney biopsy 07/03/2020 at [facility] Kidney biopsy showed: Findings identify class III [...] Hypothyroidism 10/07/2020 Stage 3b chronic kidney disease ([facility] V24, [facility] V28) 09/10/2020 Overview (08/20/2024): P DM (diabetes mellitus), type 2 with renal complications ([facility] V24, [facility] V28) 09/10/2020 Primary hypertension 07/27/2020 Seizure ([facility] V24, [facility] V28) 06/30/2020 Overview (03/07/2024): Not since age 14 [...] blood bank recommendations which was sent to [place] to strip the cells and determine if [...] and mild LVH, overall normal. BP that [id number] with normal pulse. Last Assessment & Plan: No further intervention as all work up has been negative. Ernesto scruggsus 09/09/2018 Alopecia areata 08/30/2018 Overview (08/20/2024): Anticardiolipin antibody positive 06/29/2018 Overview (03/07/2024): 05/2018- [...] Heme consult Vitamin D deficiency 04/23/2016 Overview (08/20/2024): Vitamin B12 deficiency 04/23/2016 Overview (08/20/2024): Systemic lupus erythematosus ([facility] V24, [facility] V28) 12/05/2015 Overview (03/07/2024): Onset 2009 with polyarthritis. Rheumatoid factor negative. LAUREN and swqi-[id number] DNA positive. Not much better with hydroxychloroquine. [...] ledukopenia; eventually developed PRES and transferred to [facility] 06/2020 - required short term hemodialysis [...] Last Assessment & Plan: Repaet PP Pap Rheumatoid arthritis ([facility] V24, [facility] V28) Overview (08/20/2024): arthritis tx center Encounters Date Type Department Care Team Description 11/17/2024 9:00 AM EDT Ancillary Procedure [facility] Cardiology [facility] [address] [place] [phone] Dyspnea on exertion 10/25/2024 Telephone [facility] Cardiology [facility] [address] [facility] [address] [place] [address] Billy Ferrell MD Appointment (Coronary CTA) 10/13/2024 11:00 AM EDT Office Visit [facility] Cardiology [facility] [address] [facility] [address] [place] [address] Billy Ferrell MD Dyspnea on exertion (Primary Dx); Atypical chest pain; PVD (peripheral vascular disease) ([facility] V24) 08/28/2024 9:30 AM EDT Office Visit Adult Medicine [address] [phone] Maritza Marroquin MD Primary hypertension (Primary Dx); Acquired hypothyroidism; Type 2 diabetes mellitus with stage 3 chronic kidney disease, without long-term current use of insulin, unspecified whether stage 3a or 3b CKD ([facility] V24, [facility] V28); Systemic lupus erythematosus, unspecified SLE type, unspecified organ involvement status ([facility], [facility] V28); Rheumatoid arthritis, involving unspecified site, unspecified whether rheumatoid factor present ([facility] V24, [facility] V28); Vitamin D deficiency; Vitamin B12 deficiency from Last 3 Months Immunizations Name Administration [...] Surgery Date Site/Laterality Comments TUBAL LIGATION 05/2019 COLONOSCOPY 03/2023 Medical History Medical History Date Comments Rheumatoid arthritis ([facility] V24, [facility] V28) arthritis nv center Systemic lupus ([facility] V24, [facility] V28) Alopecia areata 08/30/2018 Diabetic neuropathy ([facility] V24, [facility] V28) 08/06/2021 Acquired hemolytic anemia ([facility] V24, [facility] V28) PVD (peripheral vascular dis ease) ([facility] V24) 02/07/202402/14 left popliteal artery o cclusion Lupus (systemic lupus erythe matosus) ([facility] V24, [facility] V28) Family History Medical History Relation Name Comments [...] Sign Reading Time Taken Comments Blood Pressure 118/76 11/17/2024 9:39 AM EDT Pulse 86 10/13/2024 10:59 AM EDT Temperature 36.2 C (97.2 F) 08/28/2024 9:10 AM EDT Respiratory Rate 16 08/28/2024 9:10 AM EDT Oxygen Saturation 96% 10/13/2024 10:59 AM EDT Inhaled Oxygen Concentration - - Weight 82.6 kg (182 lb) 11/17/2024 9:39 AM EDT Height 165.1 cm (5' 5 ) 11/17/2024 9:39 AM EDT Body Mass Index 30.29 11/17/2024 9:39 AM EDT Plan of Treatment Upcoming Encounters Date Type Department Care Team (Late st Contact Info) Description 12/25/2024 1:00 PM EDT Office Visit Adult Medicine [facility] [address] [place] [phone] Ronda Hall PA [address] [place] [address] 01/08/2025 2:00 PM EDT Office Visit Pulmonolgy - [place] [address] [facility] [address] [place] [phone] Justyna Scanlon MD 175 [facility] [address] [place] [address] 03/09/2025 1:00 PM EDT Appointment [facility] Ultrasound [address] [place] [phone] 03/15/2025 9:30 AM EDT Office Visit Vascular Surgery - [place] [address] [place] [phone] Christiana De La Cruz MD 300 [facility] [address] [place] [address] 04/27/2025 9:10 AM EST Office Visit [facility] [address] [place] [phone] Jeronimo Clark NP [address] [place] [address] [address] [place] [address] Health Maintenance Due Date Last Done Comments [...] 06/30/2023 Diabetes: Blood Sugar Control Test (HGBA1C) 04/25/2025 10/24/2024, 02/15/2024, 02/15/2024 Breast Cancer Screening 06/10/2025 06/10/2023 Diabetes: Annual Urine Albumin-Creatinine Ratio (uACR) 10/24/2025 10/24/2024, 02/15/2024, 07/01/2020, Additional history exists Diabetes: Annual GFR (Glomerular Filtration Rate) 10/24/2025 10/24/2024, 08/17/2024, 02/15/2024 Hypertension/CHF/CAD Annual BMP Blood Test 10/24/2025 10/24/2024, 08/17/2024, 02/15/2024 Cervical Cancer Screening: HPV 12/25/2025 12/25/2020 DTaP,Tdap,and Td Vaccines (2 - Td or Tdap) 11/22/2028 11/22/2018 Cholesterol Screening (Lipid Panel) 10/24/2029 10/24/2024, 02/15/2024, 02/15/2024 Colorectal Cancer Screening: Colonoscopy 03/31/2033 [...] age to complete this topic Meningococcal B Vaccine Aged Out No l onger eligible based on patient's age to complete this topic RSV Immunization Patients Under 20 months Aged Out No longer eligible based on patient's age to complete this topic Varicella Vaccines Aged Out No longer eligible based on patient's age to complete this topic Procedures Procedure Name Priority Date/Time Associated Diagnosis Comments TRANSTHORACIC ECHOCARDIOGRAM (TTE) COMPLETE Routine 11/17/2024 9:39 AM EDT Dyspnea on exertion MICROALBUMIN CREATININE URINE RATIO Routine 10/24/2024 9:47 AM EDT Type 2 diabetes mellitus with stage 3b chronic kidney disease, without long-term current use of insulin ([facility] V24, [facility] V28) COMPREHENSIVE METABOLIC PANEL Routine 10/24/2024 9:47 AM EDT Primary hypertension THYROID STIMULATING HORMONE Routine 10/24/2024 9:47 AM EDT Hypothyroidism, unspecified type LIPID PANEL WITH REFLEX TO DIRECT LDL Routine 10/24/2024 9:47 AM EDT Type 2 diabetes mellitus with stage 3 chronic kidney disease, without long-term current use of insulin, unspecified whether stage 3a or 3b CKD ([facility] V24, [facility] V28) HEMOGLOBIN A1C Routine 10/24/2024 9:47 AM EDT Type 2 diabetes mellitus with stage 3 chronic kidney disease, without long-term current use of insulin, unspecified whether stage 3a or 3b CKD ([facility] V24, [facility] V28) VITAMIN B12 Routine 10/24/2024 9:47 AM EDT Vitamin B12 deficiency ECG 12-LEAD Routine 08/21/2024 12:50 PM EDT Chest pain, unspecified type DEPRESSION SCREENING Routine 06/30/2023 DIABETES EYE EXAM Routine 04/13/2023 HPV Routine 12/25/2020 from Last 3 Months or Most Recently Relevant to Health Maintenance Results * TRANSTHORACIC ECHOCARDIOGRAM (TTE) COMPLETE (11/17/2024 9:39 AM EDT) Left Atrium Minor [place] 4.7 cm CV PACS Left Atrium Major [place] 4.4 cm CV PACS LA Area Sys (A2C) 15 cm2 CV PACS LA Area Sys (A4C) 13 cm2 CV PACS LA Volume (BP) 34 mL CV PACS RA Area 10.1 cm2 CV PACS RA 2D Volume 19 mL CV PACS AV Mean Gradient 3 mmHg CV PACS Ao VTI 26.9 cm CV PACS AV Peak [place] 1.1 m/s CV PACS AV Peak Gradient 5 mmHg CV PACS AV Area Continuity Equation 2.3 cm2 CV PACS AV Area Peak Velocity 2.3 cm2 CV PACS Aortic Sinus Valsalva 2.9 cm CV PACS Ascending Aorta 2.7 cm CV PACS IVC Proximal 1.1 cm CV PACS IVSD 0.9 0.6 - 0.9 cm CV PACS LVIDD 4.2 3.8 - 5.2 cm CV PACS LVIDS 2.5 2.2 - 3.5 cm CV PACS LVOT Diameter 1.9 cm CV PACS LVOT Mean [place] 0.6 m/s CV PACS LVOT Mean Grad 2 mmHg CV PACS LVOT Peak VTI 22.1 cm CV PACS LVOT Peak [place] 0.9 m/s CV PACS LVOT Peak Gradient 3 mmHg CV PACS LVPWD 0.8 0.6 - 0.9 cm CV PACS MV E' Tissue Velocity Lateral 10 cm/s CV PACS MV E' Tissue Velocity Septal 7 cm/s CV PACS LVOT Area 2.8 cm2 CV PACS LVOT Stroke Volume 63 mL CV PACS MV Deceleration [place] 4.9 m/s2 CV PACS E Wave Deceleration Time 160 119 - 242 ms CV PACS MV PHT 47 ms CV PACS MV Peak A [place] 0.63 m/s CV PACS MV Peak E [place] 0.78 m/s CV PACS MV Area PHT 4.7 cm2 CV PACS PV Acceleration Time 119 ms CV PACS PV Acceleration Time 119 ms CV PACS PV Peak Velocity 0.7 m/s CV PACS PV Peak Gradient 2 mmHg CV PACS RV Diastolic Basal Dimension 2.8 2.5 - 4.1 cm CV PACS TAPSE 17 mm CV PACS E/E' Ratio Septal 11 CV PACS E/E' Ratio Averaged 9 CV PACS LVOT Stroke Index 33 mL/m2 CV PACS Relative Wall Thickness ratio 0.38 CV PACS LVOT:AV VTI Index 0.82 CV PACS FS 40 % CV PACS LV Mass 2D 110 g CV PACS Ascending Aorta Index 1.42 cm/m2 CV PACS LVOT flow 170 mL/s CV PACS RA 2D Volume Index 10 mL/m2 CV PACS MIKI Index (VTI) 1.23 cm2/m2 CV PACS MIKI Index (Pk Harold[place]) 1.21 cm2/m2 CV PACS LVIDD Index 2.21 cm/m2 CV PACS LVIDS Index 1.32 cm/m2 CV PACS AV Velocity Ratio 0.82 CV PACS E/A Ratio 1.2 CV PACS E/E' Ratio Lateral 8 CV PACS LA Volume Index (BP) 18 mL/m2 CV PACS LV Mass Index 2D 58 g/m2 CV PACS BSA 1.95 m2 CV PACS Est. RA Pressure 3 mmHg CV PACS Anatomical Region Laterality Modality Ultrasound Narrative 11/17/2024 10:12 AM EDT Left ventricle cavity size is normal. Wall thickness is normal. Systolic function is normal with an ejection fraction of 60-65%. There are no regional LV wall motion abnormalities. No hemodynamically significant valvular dysfunction There is no prior study available for direct comparison Left Ventricle Left ventricle cavity size is normal. Wall thickness is normal. Systolic function is normal with an ejection fraction of 60-65%. There are no regional LV wall motion abnormalities. Right Ventricle Right ventricle cavity appears normal. Systolic function is normal. Left Atrium Left atrium cavity size is normal. Right Atrium Right atrium cavity is normal. Mitral Valve Mitral valve structure is normal. There is trace regurgitation. There is no evidence of mitral valve stenosis. Tricuspid Valve Tricuspid valve structure is normal. Tricuspid regurgitation is inadequate for estimation of right ventricular systolic pressure. There is no evidence of tricuspid valve stenosis. Aortic Valve The aortic valve is trileaflet. There is no significant regurgitation. There is no evidence of aortic valve stenosis. Pulmonic Valve No significant pulmonic valve regurgitation. There is no evidence of pulmonic valve stenosis. Ascending Aorta The Sinus of Valsalva is (2.9 cm). The ascending aorta is (2.7 cm). Pericardium Pericardium appears normal. Study Details Overall the study quality was adequate. us Billy Ferrell MD CV ECHO PROCEDURES Final Result * Lipid panel with reflex to direct LDL (10/24/2024 9:47 AM EDT) [facility] Cholesterol 158 0 - 200 mg/dL LAB CHEMISTRY METHOD 10/24/2024 1:37 PM EDT [facility] Triglycerides 134 0 - 150 mg/dL LAB CHEMISTRY METHOD 10/24/2024 1:37 PM EDT [facility] HDL 50 >=40 mg/dL LAB CHEMISTRY METHOD 10/24/2024 1:37 PM EDT [facility] LDL Calculated 81 0 - 100 mg/dL LAB CHEMISTRY METHOD 10/24/2024 1:37 PM EDT [facility] VLDL Cholesterol Mychal 26.8 mg/dL LAB CHEMISTRY METHOD 10/24/2024 1:37 PM EDT [facility] Non HDL Chol. (LDL+VLDL) 108 <145 mg/dL LAB CHEMISTRY METHOD 10/24/2024 1:37 PM EDT [facility] Chol/HDL Ratio 3.2 0.0 - 4.4 LAB CHEMISTRY METHOD 10/24/2024 1:37 PM EDT [facility] Blood Venous blood specimen / Unknown Venipuncture / Unknown 10/24/2024 9:47 AM EDT 10/24/2024 9:47 AM EDT us Maritza Marroquin MD LAB BLOOD ORDERABLES Final Resul t [facility] [address] [place] [address], * Microalbumin creatinine urine ratio (10/24/2024 9:47 AM EDT) Creatinine, Urine 98.0 mg/dL LAB CHEMISTRY METHOD 10/24/2024 1:45 PM EDT [facility] Microalb, Ur 10.2 0.0 - 29.0 mg/L LAB CHEMISTRY METHOD 10/24/2024 1:45 PM EDT [facility] Microalb/Creat Ratio 10 <30 mg/g creat LAB CHEMISTRY METHOD 10/24/2024 1:45 PM EDT [facility] Urine Urine specimen from urethra / Unknown Non-blood Collection / Unknown 10/24/2024 9:47 AM EDT 10/24/2024 9:47 AM EDT us Ronda HILL LAB URINE ORDERABLES Final Re sult Performing Organization Address City/[facility]/ZIP Co de Phone Number [facility] [address] [place] [address], [place] [phone] * Thyroid stimulating hormone (10/24/2024 9:47 AM EDT) Pathologist [facility] TSH 1.94 0.40 - 4.00 mcIU/mL LAB CHEMISTRY METHOD 10/24/2024 3:05 PM EDT [facility] Blood Venous blood specimen / Unknown Venipuncture / Unknown 10/24/2024 9:47 AM EDT 10/24/2024 9:47 AM EDT us Ronda HILL LAB BLOOD ORDERABLES Final Re sult Performing Organization Address [facility]/ZIP Co de Phone Number [facility] [address] [place] [address], [place] [phone] * Hemoglobin A1c (10/24/2024 9:47 AM EDT) [facility] Hemoglobin A1C 5.3 <6.5 % LAB CHEMISTRY METHOD 10/24/2024 9:40 PM EDT [facility] Mean Bld Glu Estim. 105 mg/dL LAB CHEMISTRY METHOD 10/24/2024 9:40 PM EDT [facility] Blood Venous blood specimen / Unknown Venipuncture / Unknown 10/24/2024 9:47 AM EDT 10/24/2024 9:47 AM EDT Maritza Marroquin MD LAB BLOOD ORDERABLES Final Resul t [facility] [address] [place] [address], [place] [phone] * Vitamin B12 (10/24/2024 9:47 AM EDT) Pathologist [facility] Vitamin B-12 327 250 - 900 pcg/mL LAB CHEMISTRY METHOD 10/24/2024 1:37 PM T [facility] Blood Venous blood specimen / Unknown Venipuncture / Unknown 10/24/2024 9:47 AM EDT 10/24/2024 9:47 AM EDT us Maritza Marroquin MD LAB BLOOD ORDERABLES Final Resul t [facility] [address] [place] [address], [place] [phone] * (ABNORMAL) Comprehensive metabolic panel (10/24/2024 9:47 AM EDT) [facility] Sodium 134 133 - 145 mmol/L LAB CHEMISTRY METHOD 10/24/2024 1:37 PM [facility] Potassium 4.4 3.5 - 5.5 mmol/L LAB CHEMISTRY METHOD 10/24/2024 1:37 PM [facility] Chloride 103 96 - 110 mmol/L LAB CHEMISTRY METHOD 10/24/2024 1:37 PM [facility] CO2 23 21 - 32 mmol/L LAB CHEMISTRY METHOD 10/24/2024 1:37 PM [facility] Anion Gap 8 3 - 11 LAB CHEMISTRY METHOD 10/24/2024 1:37 PM [facility] Glucose 81 70 - 100 mg/dL LAB CHEMISTRY METHOD 10/24/2024 1:37 PM [facility] BUN 22 5 - 25 mg/dL LAB CHEMISTRY METHOD 10/24/2024 1:37 PM [facility] Creatinine 1.18(H) 0.50 - 1.10 mg/dL LAB CHEMISTRY METHOD 10/24/2024 1:37 PM EDT [facility] eGFR 57(L) >=60 mL/min/1. 73m2 LAB CHEMISTRY METHOD 10/24/2024 1:37 PM [facility] Comment:Calculation based on the Chronic Kidney Disease Epidemiology Collaboration (CKD-EPI) equation refit without adjustment for race. BUN/Creatinine Ratio 18.6 LAB CHEMISTRY METHOD 10/24/2024 1:37 PM [facility] Calcium 9.7 8.5 - 10.5 mg/dL LAB CHEMISTRY METHOD 10/24/2024 1:37 PM [facility] AST (SGOT) 17 10 - 42 unit/L LAB CHEMISTRY METHOD 10/24/2024 1:37 PM [facility] ALT (SGPT) 24 10 - 60 unit/L LAB CHEMISTRY METHOD 10/24/2024 1:37 PM [facility] Alkaline Phosphatase 76 42 - 121 unit/L LAB CHEMISTRY METHOD 10/24/2024 1:37 PM [facility] Total Protein 7.7 6.0 - 8.0 g/dL LAB CHEMISTRY METHOD 10/24/2024 1:37 PM [facility] Albumin 4.3 3.2 - 5.0 g/dL LAB CHEMISTRY METHOD 10/24/2024 1:37 PM [facility] Total Bilirubin 0.4 0.0 - 1.4 mg/dL LAB CHEMISTRY METHOD 10/24/2024 1:37 PM [facility] Blood Venous blood specimen / Unknown Venipuncture / Unknown 10/24/2024 9:47 AM EDT 10/24/2024 9:47 AM EDT us Ronda HILL LAB BLOOD ORDERABLES Final Re sult [facility] [address] [place] [address], * ECG 12 lead (08/21/2024 12:50 PM EDT) Yossi Antoine PA - 08/21/2024 12:50 PM EDT No acute st changes. Inverted t-wave in lead III. Similar to EKG in 2020. Yossi HILL ECG ORDERABLES Final Re sult * Depression Screening (06/30/2023) [facility] Depression Screening Abstracted Result [facility] Provider MD HEALTH MAINTENANCE Final Result * Diabetes Eye Exam (04/13/2023) [facility] Diabetes: Annual Retina Eye Exam Abstracted Result [facility] Provider HEALTH MAINTENANCE Final Result * Cervical Cancer Screening: HPV (12/25/2020) [facility] Cervical Cancer Screening: HPV Negative, Abstracted Result [facility] Provider HEALTH MAINTENANCE Final Result from Last 3 Months or Most Recently Relevant to Health Maintenance Insurance MEDICARE [facility] [place]ICAID - [place] Advance Directives Documents on File Type Date Recorded 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
[2024-11-20 14:43] LABS: Appearance Urine Clear; Color Urine Yellow; Glucose Urine UA Negative (Negative); Leukocyte Esterase Urine Trace (Negative); Nitrite Urine Negative (Negative); PH 5.5 (5.0-9.0); Specific Gravity - Urine 1.025 (1.005-1.025); UMIC TRIGGER UA YES; Urine Blood Negative (Negative); Urine Ketones Negative (Negative); Urine Protein Trace mg/dL (Neg-Trace)
[2024-11-20 14:47] LABS: Bacteria Urine None Seen (None Seen); Hyaline Casts Urine 0-2 /LPF (0-2); RBC Urine 0-2 /HPF (0-2); WBC Urine 0-5 /HPF (0-5)
[2024-11-20 15:31] LABS: Anion Gap 12 (12-20); Blood Urea Nitrogen 19 mg/dL (9-16); Calcium 8.9 mg/dL (8.4-10.2); Carbon Dioxide 25 mmol/L (22-29); Chloride 106 mmol/L (96-108); Estimated Glomerular Filt Rate 49; Glucose Random 88 mg/dL (60-115); Potassium 4.1 mmol/L (3.3-5.1); Sodium 139 mmol/L (135-145)
[2024-11-20 15:36] LABS: Creatinine Urine 240.02 mg/dL; Total Protein Urine Random 11 mg/dL (<12)
== END 2024-11-20 13:43 | disposition home or self-care (01) ==
LOC: HO.LAB 13:42
PROVIDERS: PCP Internal Medicine; Visit Provider Internal Medicine Hypertension Specialist
DX: I10 Essential (primary) hypertension (principal)
CPT/HCPCS: 36415; 80048; 81001; 82570; 84156

== ENCOUNTER 2024-11-23 08:59 | Outpatient (AMB) | payer BC, MEDICARE, MEDICAID, SELFPAY ==
--- OUTSIDE RECORDS SUMMARY | 2024-11-23 09:11 | XMS_ITS | Clinical Summary ---
Author Organization [address] Address [address] [place] [phone] Phone Care Team Providers Care Systems Integration Manager Name Role Phone Maritza Marroquin MD Primary Care Provider [phone] Allergies Active Allergy Reactions Criticality Noted Date [...] consider these approaches PVD (peripheral vascular disease) ([facility] V24) 02/07/2024 Overview (03/07/2024): 02/14 left popliteal [...] apneic spells 06/30/2023 Snoring 06/30/2023 Diabetic neuropathy ([facility] V24, [facility] V28) 0 08/06/2021 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) ([facility] V24, [facility] V28) 11/26/2020 Overview (03/07/2024): Kidney biopsy 07[place]03/2020 [place] [facility] [place]ney biopsy showed: Findings identify class III [...] Hypothyroidism 10/07/2020 Stage 3b chronic kidney disease ([facility] V24, [facility] V28) 09/10/2020 Overview (08/20/2024): P DM (diabetes mellitus), type 2 with renal complications ([facility] V24, [facility] V28) 09/10/2020 Primary hypertension 07/27/2020 Seizure ([facility] V24, [facility] V28) 06/30/2020 Overview (03/07/2024): Not since age [...] blood bank recommendations which was sent to [facility] to strip the cells and determine if [...] and mild LVH, overall normal. BP that [id number] with normal pulse. Last Assessment & Plan: [...] deficiency 04/23/2016 Overview (08/20/2024): Systemic lupus erythematosus ([facility] V24, [facility] V28) 12/05/2015 Overview (03/07/2024): Onset 2009 with polyarthritis. Rheumatoid factor negative. LAUREN and xdsi-wtisls-ualmxpbi DNA positive. Not much better with hydroxychloroquine. [...] eventually developed PRES and transferred to [facility] 06/2020 - required short term hemodialysis [...] & Plan: Repaet PP Pap Rheumatoid arthritis ([facility] V24, [facility] V28) Overview (08/20/2024): arthritis tx center Encounters Date Type Department Care Team Description 11/17/2024 9:00 AM EDT Ancillary Procedure [facility] [address] [place] [phone] Dyspnea on exertion 10/25/2024 Telephone [facility] [address] [place] [address] Billy Ferrell MD Appointment (Coronary CTA) 10/13/2024 11:00 AM EDT Office Visit [facility] [address] [place] [address] Billy Ferrell MD Dyspnea on exertion (Primary Dx); Atypical chest pain; PVD (peripheral vascular disease) ([facility] V24) 08/28/2024 9:30 AM EDT Office Visit Adult Medicine [address] [phone] Maritza Marroquin MD Primary hypertension (Primary Dx); Acquired hypothyroidism; Type 2 diabetes mellitus with stage 3 chronic kidney disease, without long-term current use of insulin, unspecified whether stage 3a or 3b CKD ([facility] V24, [facility] V28); Systemic lupus erythematosus, unspecified SLE type, unspecified organ involvement status ([facility] V24, [facility] V28); Rheumatoid arthritis, involving unspecified site, unspecified whether rheumatoid factor present ([facility] V24, [facility] V28); Vitamin D deficiency; Vitamin B12 deficiency [...] History Medical History Date Comments Rheumatoid arthritis ([facility] V24, [facility] V28) arthritis ks center Systemic lupus ([facility] V24, [facility] V28) Alopecia areata 08/30/2018 Diabetic neuropathy ([facility] V24, [facility] V28) 08/06/2021 Acquired hemolytic anemia ([facility] V24, [facility] V28) PVD (peripheral vascular dis ease) ([facility] V24) 02/07/202402/14 left popliteal artery o cclusion Lupus (systemic lupus erythe matosus) ([facility] V24, [facility] V28) Family History Medical History Relation Name [...] 1:00 PM EDT Office Visit Adult Medicine [facility] [address] [place] [phone] Ronda Hall PA [address] [place] [address] 01/08/2025 2:00 PM EDT Office Visit Pulmonolgy - [place] [facility] [address] [place] [phone] Justyna Scanlon MD 175 [facility] [address] [place] [address] 03/09/2025 1:00 PM EDT Appointment [facility] Ultrasound [address] [place] [phone] 03/15/2025 9:30 AM EDT Office Visit Vascular Surgery - [place] [address] [place] [phone] Christiana De La Cruz MD 300 [facility] [address] [place] [address] 04/27/2025 9:10 AM EST Office Visit [facility] [address] [place] [phone] Jeronimo Clark NP [address] [place] [address] [address] [place] [address] Health Maintenance Due Date Last Done Comments [...] disease, without long-term current use of insulin ([facility] V24, [facility] V28) COMPREHENSIVE METABOLIC PANEL Routine 10/24/2024 9:47 AM EDT Primary hypertension THYROID STIMULATING HORMONE Routine 10/24/2024 9:47 AM EDT Hypothyroidism, unspecified type LIPID PANEL WITH REFLEX TO DIRECT LDL Routine 10/24/2024 9:47 AM EDT Type 2 diabetes mellitus with stage 3 chronic kidney disease, without long-term current use of insulin, unspecified whether stage 3a or 3b CKD ([facility] V24, [facility] V28) HEMOGLOBIN A1C Routine 10/24/2024 9:47 AM EDT Type 2 diabetes mellitus with stage 3 chronic kidney disease, without long-term current use of insulin, unspecified whether stage 3a or 3b CKD ([facility] V24, [facility] V28) VITAMIN B12 Routine 10/24/2024 9:47 AM EDT Vitamin B12 deficiency DEPRESSION SCREENING Routine 06/30/2023 DIABETES EYE EXAM Routine 04/13/2023 HPV Routine 12/25/2020 from Last 3 Months or Most Recently Relevant to Health Maintenance Results * TRANSTHORACIC ECHOCARDIOGRAM (TTE) COMPLETE (11/17/2024 9:39 AM EDT) Left Atrium Minor Elmer 4.7 cm CV PACS Left Atrium Major [place]mer 4.4 cm CV PACS [place] Area Sys [...] Volume 63 mL CV PACS MV Deceleration [place] 4.9 m/s2 CV PACS E Wave Deceleration [...] to direct LDL (10/24/2024 9:47 AM EDT) Cholesterol 158 0 - 200 mg/dL LAB CHEMISTRY METHOD 10/24/2024 1:37 PM EDT [facility] Triglycerides 134 0 - 150 mg/dL LAB CHEMISTRY METHOD 10/24/2024 1:37 PM EDT [facility] HDL 50 >=40 mg/dL LAB CHEMISTRY METHOD 10/24/2024 1:37 PM EDT [facility] LDL Calculated 81 0 - 100 mg/dL LAB CHEMISTRY METHOD 10/24/2024 1:37 PM EDT [facility] VLDL Cholesterol Mychal 26.8 mg/dL LAB CHEMISTRY METHOD 10/24/2024 1:37 PM EDT [facility] Non HDL Chol. (LDL+VLDL) 108 <145 mg/dL LAB CHEMISTRY METHOD 10/24/2024 1:37 PM EDT [facility] Chol/HDL Ratio 3.2 0.0 - 4.4 LAB CHEMISTRY METHOD 10/24/2024 1:37 PM EDT [facility] Blood Venous blood specimen / Unknown Venipuncture / Unknown 10/24/2024 9:47 AM EDT 10/24/2024 9:47 AM EDT us Maritza Marroquin MD LAB BLOOD ORDERABLES Final Resul t [facility] [address] [place] [address], * Microalbumin creatinine urine ratio (10/24/2024 9:47 AM EDT) Creatinine, Urine 98.0 mg/dL LAB CHEMISTRY METHOD 10/24/2024 1:45 PM EDT [facility] Microalb, Ur 10.2 0.0 - 29.0 mg/L LAB CHEMISTRY METHOD 10/24/2024 1:45 PM EDT [facility] Microalb/Creat Ratio 10 <30 mg/g creat LAB CHEMISTRY METHOD 10/24/2024 1:45 PM EDT [facility] Urine Urine specimen from urethra / Unknown Non-blood Collection / Unknown 10/24/2024 9:47 AM EDT 10/24/2024 9:47 AM EDT us Ronda HILL LAB URINE ORDERABLES Final Re sult [facility] [address] [place] [address], [place] [phone] * Thyroid stimulating hormone (10/24/2024 9:47 AM EDT) [facility] TSH 1.94 0.40 - 4.00 mcIU/mL LAB CHEMISTRY METHOD 10/24/2024 3:05 PM EDT [facility] Blood Venous blood specimen / Unknown Venipuncture / Unknown 10/24/2024 9:47 AM EDT 10/24/2024 9:47 AM EDT us Ronda HILL LAB BLOOD ORDERABLES Final Re sult Performing Organization Address [facility]/ZIP Co de Phone Number [facility] [address] [place] [address], [place] [phone] * Hemoglobin A1c (10/24/2024 9:47 AM EDT) [facility] Hemoglobin A1C 5.3 <6.5 % LAB CHEMISTRY METHOD 10/24/2024 9:40 PM EDT [facility] Mean Bld Glu Estim. 105 mg/dL LAB CHEMISTRY METHOD 10/24/2024 9:40 PM EDT [facility] Blood Venous blood specimen / Unknown Venipuncture / Unknown 10/24/2024 9:47 AM EDT 10/24/2024 9:47 AM EDT us Maritza Marroquin MD LAB BLOOD ORDERABLES Final Resul t Performing Organization Address [facility]/ZIP Co de Phone Number [facility] [address] [place] [address], [place] [phone] * Vitamin B12 (10/24/2024 9:47 AM EDT) [facility] Vitamin B-12 327 250 - 900 pcg/mL LAB CHEMISTRY METHOD 10/24/2024 1:37 PM EDT [facility] Blood Venous blood specimen / Unknown Venipuncture / Unknown 10/24/2024 9:47 AM EDT 10/24/2024 9:47 AM EDT us Maritza Marroquin MD LAB BLOOD ORDERABLES Final Resul t [facility] [address] [place] [address], [place] [phone] * (ABNORMAL) Comprehensive metabolic panel (10/24/2024 9:47 AM EDT) [facility] Sodium 134 133 - 145 mmol/L LAB CHEMISTRY METHOD 10/24/2024 1:37 PM [facility] Potassium 4.4 3.5 - 5.5 mmol/L LAB CHEMISTRY METHOD 10/24/2024 1:37 PM [facility] Chloride 103 96 - 110 mmol/L LAB CHEMISTRY METHOD 10/24/2024 1:37 PM [facility] CO2 23 21 - 32 mmol/L LAB CHEMISTRY METHOD 10/24/2024 1:37 PM [facility] Anion Gap 8 3 - 11 LAB CHEMISTRY METHOD 10/24/2024 1:37 PM [facility] Glucose 81 70 - 100 mg/dL LAB CHEMISTRY METHOD 10/24/2024 1:37 PM [facility] BUN 22 5 - 25 mg/dL LAB CHEMISTRY METHOD 10/24/2024 1:37 PM [facility] Creatinine 1.18(H) 0.50 - 1.10 mg/dL LAB CHEMISTRY METHOD 10/24/2024 1:37 PM [facility] eGFR 57(L) >=60 mL/min/1. 73m2 LAB CHEMISTRY METHOD 10/24/2024 1:37 PM EDT [facility] Comment:Calculation based on the Chronic Kidney Disease Epidemiology Collaboration (CKD-EPI) equation refit without adjustment for race. BUN/Creatinine Ratio 18.6 LAB CHEMISTRY METHOD 10/24/2024 1:37 PM [facility] Calcium 9.7 8.5 - 10.5 mg/dL LAB CHEMISTRY METHOD 10/24/2024 1:37 PM [facility] AST (SGOT) 17 10 - 42 unit/L LAB CHEMISTRY METHOD 10/24/2024 1:37 PM [facility] ALT (SGPT) 24 10 - 60 unit/L LAB CHEMISTRY METHOD 10/24/2024 1:37 PM [facility] Alkaline Phosphatase 76 42 - 121 unit/L LAB CHEMISTRY METHOD 10/24/2024 1:37 PM [facility] Total Protein 7.7 6.0 - 8.0 g/dL LAB CHEMISTRY METHOD 10/24/2024 1:37 PM [facility] Albumin 4.3 3.2 - 5.0 g/dL LAB CHEMISTRY METHOD 10/24/2024 1:37 PM [facility] Total Bilirubin 0.4 0.0 - 1.4 mg/dL LAB CHEMISTRY METHOD 10/24/2024 1:37 PM [facility] Blood Venous blood specimen / Unknown Venipuncture / Unknown 10/24/2024 9:47 AM EDT 10/24/2024 9:47 AM EDT us Ronda HILL LAB BLOOD ORDERABLES Final Re sult [facility] [address] [place] [address], [place] [phone] * Depression Screening (06/30/2023) [facility] Depression Screening Abstracted us Historical Provider HEALTH MAINTENANCE Final Result * Diabetes Eye Exam (04/13/2023) Pathologist [facility] Diabetes: Annual Retina Eye Exam Abstracted Historical Provider HEALTH MAINTENANCE Final Result * Cervical Cancer Screening: HPV (12/25/2020) Pathologist [facility] Cervical Cancer Screening: HPV Negative, Abstracted Historical Provider HEALTH MAINTENANCE Final Result from Last 3 Months or Most Recently Relevant to Health Maintenance Insurance MEDICARE [facility] MEDICAID - [place] Advance Directives Documents on File Type Date Recorded Patient Medical And Health Services Manager Expl anation Health Care Decision (hx) 08/07/2020 [...] (hx) 06/24/2020 AD DAVIS DIRECTIVE Care Teams Systems Integration Manager Relationship Specialty Start Date End Date Maritza Marroquin MD [address] [place] [address] PCP - General Internal Medicine 11/21/20
--- OUTSIDE RECORDS SUMMARY | 2024-11-23 09:11 | XMS_ITS | Encounter Summary ---
Author Organization [facility] Address [address] [place] [address] Phone Care Team Providers Care Family Living Educator Name Role Phone RubenRuddy Malry Primary Care Pro vider Encounter Details Date Type Department Care Team (Late st Contact Info) Description 04/11/2021 Telephone [facility] [address] [place] [address] Ritika Bentley Social History Tobacco [...] 3:22 PM EST) Creatinine, Urine 122.07 mg/dL [facility] Urine Microalbumin <5.0 mg/L ESTERJAYNE Microalbumin/Crea tinine Ratio TNP ug/mg cr KATHY Comment: Unable to calculate albumin/creatinine ratio due to low microalbumin or creatinine result. 04/11/2021 3:22 PM EST 04/11/2021 3:22 PM EST us Mike Mcarthur MD LAB URINE ORDERABLES Final Re sult Performing Organization Address [facility] Co de Phone Number [place] * (ABNORMAL) Urinalysis (04/11/2021 3:22 PM EST) Color Urine YELLOW [place] Appearance Urine CLEAR [place] pH Urine 6.0 5.0 - 8.0 [place] Glucose Urine NEG NEG MG/DL [place] Blood, Urine NEG NEG [place] Specific [place] Urine >=1.030(H) 1.005 - 1.025 [place] Protein Urine NEG NEG-TRACE MG/DL [place] Ketones, Urine NEG NEG MG/DL [place] Nitrite, Urine NEG NEG [place] Leukocyte Esterase Urine NEG NEG [place] 04/11/2021 3:22 PM EST 04/11/2021 3:22 PM EST us Mike Mcarthur MD LAB URINE ORDERABLES Final Re sult Performing Organization Address [facility] Co de Phone Number [place] documented in this encounter Visit Diagnoses Not on filedocumented in this encounter Care Teams Family Living Educator Relationship Specialty Start Date End Date Marly Castillo DO PCP - General Internal Medicine 09/25/20 documented as of this encounter
--- OUTSIDE RECORDS SUMMARY | 2024-11-23 09:11 | XMS_ITS | Clinical Summary ---
Author Organization [facility] Address [address] [place] [address] Care Team Providers Care Adjunct Instructor In Economics Name Role Phone Marly Turcios DO Primary [...] daily. 0 Active ergocalciferol (VITAMIN D2) capsule 01521 units Take 50,000 Units by mouth once [...] age to complete this topic Care Teams Adjunct Instructor In Economics Relationship Specialty Start Date End Date Marly Turcios DO PCP - General Factory Hand 09/09/20
--- NOTE | 2024-11-23 09:14 | HO.NEPHOV_ITS ---
Vital Signs 11/23/24 09:15 Height 5 ft 5 in Weight 181 lb 4 oz BMI 30.2 BP 114/80 Blood Pressure Location Lt brachial Position Sitting Pulse 79 Pulse Source Pulse Oximeter Pulse Oximetry (%) 97 Oxygen Delivery Method Room Air Intake Visit Reasons: Hypertension-Conf Airport Driver Required: No Accompanied by: Self / Same As Patient Allergies ibuprofen (From ADVIL) Allergy (Unknown, Verified 11/23/24 09:15) HIVES naproxen (From ALEVE) Allergy (Unknown, Verified 11/23/24 09:15) HIVES Nsaids Allergy (Intermediate, Uncoded 05/23/24 10:59) hives Medication List - Last Reconciled 11/23/24 by Rodolfo Kenny MD acetaminophen (Tylenol Extra Strength) 1,000 mg PO Q6H PRN albuterol sulfate 90 mcg/actuation (Ventolin HFA) 901 mcg inhalation DAILY aspirin 81 mg PO DAILY betamethasone valerate 0.1% 0.1 appl topical DAILY hydroxychloroquine 200 mg PO DAILY NS ipratropium bromide 17 mcg/actuation (Atrovent HFA) 17 mcg inhalation DAILY PRN labetalol 50 mg (1/2 x 100 mg) PO BID levothyroxine 25 mcg PO DAILY sucralfate 1 g PO BID triamcinolone acetonide 0.1% 1 appl topical DAILY HPI Comments Details: . Peggy is a 48-year-old woman with a history of lupus. She was previously seen by another dust mixer in the past she is decided to switch services back in 07/13/2022. Apparently she had a kidney biopsy a several years ago at [facility]. Results not available. Over the last few years renal function has been stable. She has been actively followed by Rheumatology. She had no specific complaints today. She has a history of in induced hypertension and she has been on labetalol 300 mg twice a day for about 4 years now. 11/08/2023. Doing well no new issues today. 05/25/24;Left pop artery occlusion.Seen by hematology and work up in [facility];BP has been low 11/23/24 The patient is a 49-year-old female with systemic lupus erythematosus and chronic kidney disease. The patient has been diagnosed with systemic lupus erythematosus and has been on hydroxychloroquine for management. She expressed reluctance to switch to Benlista despite her surface logging systems logger's suggestion, due to concerns about potential side effects and a preference to remain on her current medication. Her chronic kidney disease is currently stable, with no new symptoms such as blood in the urine or facial rash reported. The patient has been advised to maintain adequate hydration to support kidney function. The patient reports alopecia, which she attributes to lupus, and has discussed this with her surface logging systems logger. She is concerned about the progression of hair loss and is seeking advice on management options. The patient has a history of blood clots and is currently on blood thinners as part of her lupus management. She attempts to stay active by walking and plans to resume gym activities in January. [facility] Medical History Leukopenia Anemia Surgical History Hx of tubal ligation Family History Mother No problems noted. Father No problems noted. Social History Household Members: Family Housing: House Are you a primary manager critical care to a significant other at home: No Do you presently have visiting nurse or other home services: No 75 years or older and lives alone: No Alcohol intake: never Patient Tobacco Use Status: Never used Tobacco e-Cigarette/Vaping Use: Never Used service: No Current occupational status: unemployed and disabled Physical Exam Vital Signs: Last Vital Signs Pulse 79 11/23/24 09:15 BP 114/80 11/23/24 09:15 Pulse Ox 97 11/23/24 09:15 Oxygen Delivery Method Room Air 11/23/24 09:15 BMI result Body Mass Index 30.2 Comfortable Neck supple no JVD. Lungs entry equal no rales. Heart S1-S2 heard no gallop or rub. Abdomen soft nontender. Neuro alert awake oriented. No asterixis. Extremities no edema. Results Reviewed Nephrology Results: Hgb, (12.0-16.0) 12.8 g/dl 07/26/24 WBC, (4.8-10.8) 6.3 X10*3/uL 07/26/24 Plt Count, (160-400) 214 X10*3/uL 07/26/24 Sodium, (135-145) 139 mmol/L 11/20/24 Potassium, (3.3-5.1) 4.1 mmol/L 11/20/24 Chloride, (96-108) 106 mmol/L 11/20/24 Carbon Dioxide, (22-29) 25 mmol/L 11/20/24 BUN, (9-16) 19 mg/dL H 11/20/24 Creatinine, (0.5-1.4) 1.17 mg/dL 11/20/24 Calcium, (8.4-10.2) 8.9 mg/dL 11/20/24 Urine Protein, (Neg-Trace) Trace mg/dL 11/20/24 Urine Creatinine 240.02 mg/dL 11/20/24 Protein/Creatinin Ratio TNP 07/26/24 Assessment & Plan Assessment & Plan (1) Hypertension: Code(s): I10 - Essential (primary) hypertension Category: Medical Plan: BP well controlled NO change in meds . Encouraged her to keep monitoring blood pressure at home. 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 Four of 20 glomeruli show active lesions; one of 20 shows a chronic lesion. The tubular immune complex deposits may contribute to the ATI, but the rapid creatinine rise requiring dialysis suggests an additional etiology. There is no interstitial fibrosis/tubular atrophy but mild vascular disease (intimal hyperplasia) is present. After discussion with Rheum/Renal it was thought that ATN predominantly the cause of her renal failure (additionally PRES the cause of her neuro issues). Given less likely lupus-mediated, her steroids were reduced to IV methylpred 32mg/daily (equivalent to home prednisone dose) and MMF was deferred. and currently not on any Baseline creatinine 1.0 Code(s): N18.30 - Chronic kidney disease, stage 3 unspecified Category: Medical Qualifiers: Chronic kidney disease stage 3 subtype: stage 3a (GFR 45-59) Qualified Code(s): N18.31 - Chronic kidney disease, stage 3a Plan: Cr Stable UA benign- No RBC or protein Orders: Orders Total Protein Urine Random 6 Months N18.31 - Chronic kidney disease, stage 3a UA and rflx microscopic 6 Months N18.31 - Chronic kidney disease, stage 3a Comprehensive Met. Panel 6 Months N18.31 - Chronic kidney disease, stage 3a Complete Blood Count no Diff 6 Months N18.31 - Chronic kidney disease, stage 3a Creatinine Urine 6 Months N18.31 - Chronic kidney disease, stage 3a Coding Level of Care Code Est Pt Level 4 (44638) Diagnoses Hypertension I10 Stage 3a chronic kidney disease N18.31 Chronic kidney disease stage 3 subtype: stage 3a (GFR 45-59)
[2024-11-23 09:15] VITALS: BP 114/80; PULSE 79; O2SAT 97; BMI 30.2
== END 2024-11-23 09:25 | disposition home or self-care (01) ==
LOC: HO.HKA 08:59
PROVIDERS: PCP Internal Medicine; Visit Provider Internal Medicine Hypertension Specialist
DX: I10 Essential (primary) hypertension (principal); N18.31 Chronic kidney disease, stage 3a
CPT/HCPCS: 99214

== ENCOUNTER 2024-11-29 12:09 | Outpatient (AMB) | payer BC, MEDICARE, MEDICAID, SELFPAY ==
--- NOTE | 2024-11-29 12:42 | A.OFFVIS_ITS ---
Vital Signs 11/29/24 12:43 Height 5 ft 5 in Weight 182 lb 1.629 oz BMI 30.3 BP 118/70 Blood Pressure Location Lt brachial Position Sitting Pulse 89 Pulse Source Pulse Oximeter Pulse Oximetry (%) 98 Oxygen Delivery Method Room Air Intake Visit Reasons: SLE Intake Note: Patient last seen by Doctor Delaney Phelan on 08/10/24. Presents today for SLE follow up and test results. Allergies ibuprofen (From ADVIL) Allergy (Unknown, Verified 11/29/24 12:45) HIVES naproxen (From ALEVE) Allergy (Unknown, Verified 11/29/24 12:45) HIVES Nsaids Allergy (Intermediate, Uncoded 11/29/24 12:45) hives HPI Comments Details: Patient is a 49-year-old female with hypertension complicated by peripheral arterial disease, hypothyroidism, lupus complicated by lupus nephritis, CKD stage 3, and history of popliteal artery occlusion here today for follow up Interval History: Patient last seen 08/10/24 with me - No new complaints - The hyperpigmentation to her arms persisted but patient did not want to switch to azathioprine Today - No new complaints - Last opthal visit 1 year ago - Hyperpigmentation to arms and back persists but she denies rashes, photosensitivity, alopecia, oral/nasal ulcers, sicca symptoms, lymphadenopathy, chest pain/shortness of breath, inflammatory type joint pain, foamy urine, lower extremity edema, muscle weakness Rheumatologic History: Onset 2009 with polyarthritis. +LAUREN++DsDNA +ACL IgG .HCQ started but not effective Methotrexate added in 2012 but caused nausea. Azathioprine added in 2014 but had to be stopped because of dizziness and lightheadedness. Trial of Humira in 2015 resulted in a flare of SLE with increased arthritis, leukopenia, skin rash, abdominal pain and fever. Put back on hydroxychloroquine October 2015. Eye exam OK 05/2019, 12/202006/29/2018 Single + anticardiolipin antibody- Negative SSA, SSB. 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 [facility] 06/2020 - required short term hemodialysis - due to ATN +/- class 3 lupus nephritis. CellCept discontinued due to leukopenia. 2021: Hydroxychloroquine continued and prednisone tapered off Current Rheumatology Medication(s): Hydroxychloroquine 200mg [facility] Medical History Leukopenia Anemia Surgical History Hx of tubal ligation Family History Mother No problems noted. Father No problems noted. Social History Household Members: Family Housing: House Are you a primary primary care sales representative to a significant other at home: No Do you presently have visiting nurse or other home services: No 75 years or older and lives alone: No Alcohol intake: never Patient Tobacco Use Status: Never used Tobacco e-Cigarette/Vaping Use: Never Used service: No Current occupational status: unemployed and disabled Review of Systems Const Details: Review of Systems Constitutional: Denies fever, chills, weight loss ENT: Denies vision changes, eye pain or eye redness, dental caries, dry mouth GI: Denies nausea, vomiting, diarrhea, abdominal pain, change in BM Pulm: Denies SOB, SALVADOR, hemoptysis, wheezing Cards: Denies chest pain, palpitations Skin: Denies Raynaud's, rash, nail changes, photosensitivity, 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 Well appearing and in no apparent painful distress HEENT Conjunctiva and sclera clear. ?Pupils equal round and reactive to light. ?No lymphadenopathy. ? CHEST/RESPIRATORY SYSTEM Normal respiratory effort and able to speak in complete sentences. ?Clear to auscultation bilaterally. ?No crackles, rales, rhonchi, wheezes heard. CARDIAC SYSTEM Regular rate and rhythm. ?S1 and S2 heard no murmurs. 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 No deformities noted. ?No synovitis noted to the MCPs, PIPs or DIPs. ?No tenderness to palpation of these joints. Wrists: ?Full range of motion at the wrists without pain. ?No tenderness to palpation or synovitis noted to the wrists. Elbows: Full range of motion without pain. No tenderness, weakness, swelling, increased warmth or erythema. Shoulders: Full range of motion without pain. No tenderness, weakness, swelling, increased warmth or erythema. Hips: Full range of motion without pain. Hip bursa: No tenderness to palpation Knees: ?Full range of motion. ?No tenderness, swelling, increased warmth or erythema.?No effusion or crepitations Ankles: Full range of motion. ?No tenderness, swelling, increased warmth or erythema.? Feet: ?Negative squeeze test. ?No tenderness to palpation or swelling of the MTPs. Tender points:?No tenderness to palpation of the bilateral trapezius, supraspinatus, greater trochanters, anterior costochondral junctions, bilateral gluteal areas, bilateral suboccipital muscle insertions SKIN Hyperpigmentation noted to the bilateral outer forearms and upper back. 1cm ulcer with healed base noted to her scalp. Results Reviewed Results Reviewed: Laboratory Tests 07/26/24 11/20/24 11:47 13:52 WBC 6.3 RBC 4.42 Hgb 12.8 Hct 38.0 Plt Count 214 ESR 5 Sodium 139 Potassium 4.1 Chloride 106 Carbon Dioxide 25 BUN 19 H Creatinine 1.17 AST 24 ALT 21 Alkaline Phosphatase 69 C-Reactive Protein 0.28 Laboratory Tests 07/26/24 11:47 Double Strand DNA Ab 1 Complement C3 135 Complement C4 19 Laboratory Tests 11/20/24 13:48 Urine Protein Trace Urine Blood Negative U Random Total Protein 11 Assessment & Plan Assessment & Plan (1) SLE (systemic lupus erythematosus): Comment: Onset 2009 with polyarthritis. +LAUREN++DsDNA +ACL IgG .HCQ started but not effective Methotrexate added in 2012 but caused nausea. Azathioprine added in 2014 but had to be stopped because of dizziness and lightheadedness. Trial of Humira in 2015 resulted in a flare of SLE with increased arthritis, leukopenia, skin rash, abdominal pain and fever. Put back on hydroxychloroquine October 2015. Eye exam OK 05/2019, 12/202006/29/2018 Single + anticardiolipin antibody- Negative SSA, SSB. 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 [facility] 06/2020 - required short term hemodialysis - due to ATN +/- class 3 lupus nephritis. CellCept discontinued due to leukopenia. 2021: Hydroxychloroquine continued and prednisone tapered off Code(s): M32.9 - Systemic lupus erythematosus, unspecified Category: Medical Qualifiers: Systemic lupus erythematosus type: other Systemic lupus erythematosus organ involvement: other Qualified Code(s): M32.19 - Other organ or system involvement in systemic lupus erythematosus Plan: #SLE Patient is a 49 y.o. female with SLE complicated by LN currently in remission Labs and clinical exam consistent with remission There is concern about her hyperpigmentation may be related to her fpc zach quenil use. Discussed switching her medication to other lupus meds such as azathioprine or benlysta Patient is a little hesitant to start another medication given that she has had reactions in the past She reviewed the handout and would prefer to continue Plaquenil Plan - Continue plaquenil 200mg daily - RTC 6 months - Labs before visit: CBC, CMP, ESR, CRP, C3, C4, dsDNA, UA, UPC (2) CKD (chronic kidney disease) stage 3, GFR 30-59 ml/min: Comment: Kidney biopsy 07/03/2020 at [facility] Findings identify 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 Four of 20 glomeruli show active lesions; one of 20 shows a chronic lesion. The tubular immune complex deposits may contribute to the ATI, but the rapid creatinine rise requiring dialysis suggests an additional etiology. There is no interstitial fibrosis/tubular atrophy but mild vascular disease (intimal hyperplasia) is present. After discussion with Rheum/Renal it was thought that ATN predominantly the cause of her renal failure (additionally PRES the cause of her neuro issues). Given less likely lupus-mediated, her steroids were reduced to IV methylpred 32mg/daily (equivalent to home prednisone dose) and MMF was deferred. and currently not on any Baseline creatinine 1.0 Code(s): N18.30 - Chronic kidney disease, stage 3 unspecified Category: Medical Qualifiers: Chronic kidney disease stage 3 subtype: stage 3a (GFR 45-59) Qualified Code(s): N18.31 - Chronic kidney disease, stage 3a Plan: #CKD in the setting of SLE LN Currently in remission Follows with renal Urine without protein, blood or cells (3) Long-term use of hydroxychloroquine: Code(s): Z79.899 - Other fpc (current) drug therapy Category: Medical Plan: #Long-term Use of Hydroxychloroquine Discussed with patient the risks and benefits of hydroxychloroquine in managing the rheumatic condition Benefits include: - Reduced pain, reduce mortality, maintenance of remission and reduction of flares Risks include: - GI upset, skin hyperpigmentation, retinal toxicity (especially after more than 5 years of use), myopathy Advised yearly ophthalmology visits Last ophthalmology visit: 02/2024 Plan I spent 30 minutes reviewing the record and labs, taking a history, examining the patient, discussing the treatment plan, ordering diagnostic work up and documenting in the medical record Orders: Orders Complete Blood Count Auto Diff 6 Months M32.19 - Other organ or system involvement in systemic lupus erythematosus Anti DNA DS Antibody 6 Months M32.19 - Other organ or system involvement in systemic lupus erythematosus Complement C3 6 Months M32.19 - Other organ or system involvement in systemic lupus erythematosus C Reactive Protein 6 Months M32.19 - Other organ or system involvement in systemic lupus erythematosus Erythrocyte Sedimentation Rate 6 Months M32.19 - Other organ or system involvement in systemic lupus erythematosus Protein Creatinine Ratio, Ur 6 Months M32.19 - Other organ or system involvement in systemic lupus erythematosus Complement C4 6 Months M32.19 - Other organ or system involvement in systemic lupus erythematosus Comprehensive Met. Panel 6 Months M32.19 - Other organ or system involvement in systemic lupus erythematosus UA w Microscopic 6 Months M32.19 - Other organ or system involvement in systemic lupus erythematosus Coding Level of Care Code Est Pt Level 4 (78534) Complex EM visit Add On G2211 Diagnoses Other systemic lupus erythematosus with other organ involvement M32. Systemic lupus erythematosus type: other Systemic lupus erythematosus organ involvement: other Stage 3a chronic kidney disease N18.31 Chronic kidney disease stage 3 subtype: stage 3a (GFR 45-59) Long-term use of hydroxychloroquine Z79.899
[2024-11-29 12:43] VITALS: BP 118/70; PULSE 89; O2SAT 98; BMI 30.3
--- OUTSIDE RECORDS SUMMARY | 2024-11-29 13:14 | XMS_ITS | Clinical Summary ---
Author Organization [facility] Address [address] [place] [address] Care Team Providers Care Customer Account Technician Name Role Phone Marly Turcios DO Primary [...] daily. 0 Active ergocalciferol (VITAMIN D2) capsule 79529 units Take 50,000 Units by mouth once [...] Cancer Screening (Colonoscopy) 01/12/2021 Influenza Vaccine (#1) 2025 01/23/2020 Hepatitis C Screening Completed 07/02/2020 Pneumococcal Vaccine Aged Out No long er eligible based on patient's age to complete this topic RSV Ped < 20 months Aged Out No longe r eligible based on patient's age to complete this topic Care Teams Customer Account Technician Relationship Specialty Start Date End Date Marly Turcios DO PCP - General Base Cloth Inspector 09/09/20
--- OUTSIDE RECORDS SUMMARY | 2024-11-29 13:14 | XMS_ITS | Encounter Summary ---
Author Organization [facility] Address [address] [place] [address] Phone Care Team Providers Care Orthodontist Assistant Name Role Phone RubenRuddy Marly Primary Care Pro vider Encounter Details Date Type Department Care Team (Late st Contact Info) Description 04/11/2021 Telephone [facility] [address] [place] [address] Ritika Bentley Social History Tobacco [...] 3:22 PM EST) Creatinine, Urine 122.07 mg/dL [place] Urine Microalbumin <5.0 mg/L ESTERJAYNE Microalbumin/Crea tinine Ratio TNP ug/mg cr KATHY Comment: Unable to calculate albumin/creatinine ratio due to low microalbumin or creatinine result. 04/11/2021 3:22 PM EST 04/11/2021 3:22 PM EST us Mike Mcarthur MD LAB URINE ORDERABLES Final Re sult Performing Organization Address [facility] Co de Phone Number [place] * (ABNORMAL) Urinalysis (04/11/2021 3:22 PM EST) Color Urine YELLOW [place] Appearance Urine CLEAR [place] pH Urine 6.0 5.0 - 8.0 [place] Glucose Urine NEG NEG MG/DL [place] Blood, Urine NEG NEG [place] Specific [place] Urine >=1.030(H) 1.005 - 1.025 [place] Protein Urine NEG NEG-TRACE MG/DL [place] Ketones, Urine NEG NEG MG/DL [place] Nitrite, Urine NEG NEG [place] Leukocyte Esterase Urine NEG NEG [place] 04/11/2021 3:22 PM EST 04/11/2021 3:22 PM EST us Mike Mcarthur MD LAB URINE ORDERABLES Final Re sult Performing Organization Address [facility] Co de Phone Number [place] documented in this encounter Visit Diagnoses Not on filedocumented in this encounter Care Teams Orthodontist Assistant Relationship Specialty Start Date End Date Marly Castillo DO PCP - General Internal Medicine 09/25/20 documented as of this encounter
--- OUTSIDE RECORDS SUMMARY | 2024-11-29 13:14 | XMS_ITS | Clinical Summary ---
Author Organization [address] Address [address] [place] [phone] Phone Care Team Providers Care Solar Tech Name Role Phone Maritza Marroquin MD Primary Care Provider [phone] Allergies Active Allergy Reactions Criticality Noted Date [...] consider these approaches PVD (peripheral vascular disease) ([facility] V24) 02/07/2024 Overview (03/07/2024): [...] apneic spells 06/30/2023 Snoring 06/30/2023 Diabetic neuropathy ([facility] V24, [facility] V28) 0 08/06/2021 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) ([facility] V24, [facility] V28) 11/26/2020 Overview (03/07/2024): Kidney biopsy 07/03/2020 [place] [facility] [place] biopsy showed: Findings identify class III [...] Hypothyroidism 10/07/2020 Stage 3b chronic kidney disease ([facility] V24, [facility] V28) 09/10/2020 Overview (08/20/2024): P DM (diabetes mellitus), type 2 with renal complications ([facility] V24, [facility] V28) 09/10/2020 Primary hypertension 07/27/2020 Seizure ([facility] V24, [facility] V28) 06/30/2020 Overview (03/07/2024): Not since age 14 Transaminitis 06/28/2019 Overview (03/07/2024): Elevated LFT. Negative Hepatitis panel. US showed fatty infilatration. In setting of overall flare of lupus 2019. Positive direct Hamida test 12/23/2018 Overview (03/07/2024): She had positive antibody screen last week with Rheum labs and notable for positive KELILE and warm antibody. Eaeerly T&S cancelled. She is Rh positive. She has had a repeat sample as per blood bank recommendations which was sent to [place] to strip the cells and determine if [...] and mild LVH, overall normal. BP that [id number] with normal pulse. Last Assessment & Plan: [...] deficiency 04/23/2016 Overview (08/20/2024): Systemic lupus erythematosus ([facility] V24, [facility] V28) 12/05/2015 Overview (03/07/2024): Onset 2009 with polyarthritis. Rheumatoid factor negative. LAUREN and phpb-qdbing-jguzmonv DNA positive. Not much better with hydroxychloroquine. [...] ledukopenia; eventually developed PRES and transferred to [facility] [place] - required short term hemodialysis [...] & Plan: Repaet PP Pap Rheumatoid arthritis ([facility] V24, [facility] V28) Overview (08/20/2024): arthritis tx center Encounters Date Type Department Care Team Description 11/17/2024 9:00 AM EDT Ancillary Procedure [facility] Cardiology [facility] [address] [place] [phone] Dyspnea on exertion 10/25/2024 Telephone [facility] Cardiology [facility] [address] [place] [address] Billy Ferrell MD Appointment (Coronary CTA) 10/13/2024 11:00 AM EDT Office Visit [facility] Cardiology [facility] [address] [place] [address] Billy Ferrell MD Dyspnea on exertion (Primary Dx); Atypical chest pain; PVD (peripheral vascular disease) ([facility] V24) from Last 3 Months Immunizations Name Administration [...] History Medical History Date Comments Rheumatoid arthritis ([facility]/ [facility] V24, [facility] V28) arthritis [facility] center Systemic lupus ([facility] V24, [facility] V28) Alopecia areata 08/30/2018 Diabetic neuropathy ([facility] V24, [facility] V28) 08/06/2021 Acquired hemolytic anemia ([facility] [place] V24, [facility] V28) PVD (peripheral vascular dis ease) ([facility] V24) 02/07/202402/14 left popliteal artery o cclusion Lupus (systemic lupus erythe matosus) ([facility] V24, [facility] V28) Family History Medical History Relation Name [...] 1:00 PM EDT Office Visit Adult Medicine [facility] [address] [place] [phone] oRnda Hall PA [address] [place] [address] 01/08/2025 2:00 PM EDT Office Visit Pulmonolgy - [place] [address] [facility] [address] [place] [phone] Justyna Scanlon MD 175 [facility] [address] [place] [address] 03/09/2025 1:00 PM EDT Appointment [facility] Ultrasound [address] [place] [phone] 03/15/2025 9:30 AM EDT Office Visit Vascular Surgery - [place] [address] [place] [phone] Christiana De La Cruz MD 300 [facility] [address] [place] [address] 04/27/2025 9:10 AM EST Office Visit [facility] Cardiology [facility] [address] [place] [phone] CycJeronimo knox NP [address] [place] [address] [address] [place] [address] Health Maintenance Due Date Last Done Comments Diabetes: Annual Foot Exam 01/12/1986 Hepatitis B Vaccines (1 of 3 - 19+ 3-dose series) 01/12/1995 Pneumococcal Vaccine: Pediatrics (0 to 5 Years) and At-Risk Patients (6 to 49 Years) (1 of 2 - PCV) 01/12/1995 COVID-19 Vaccine (3 - Pfizer risk series) 11/01/2020 10/04/2020, 09/13/2020 HIV Screening 05/02/2022 Medicare Annual Wellness Visit 05/02/2022 Social Influencers of Health Screening 05/02/2022 Diabetes: Annual Retina Eye Exam 04/13/2024 04/13/2023 Depression Screening 06/30/2024 06/30/2023 Influenza Vaccine (#1) 2025 , 06/30/2023, 04/11/2021, Additional history exists Diabetes: Blood Sugar Control Test (HGBA1C) 04/25/2025 [...] 03/31/2033 03/31/2023 Hepatitis C Screening Completed 07/02/2020 HIB Vaccines Aged Out No longer eligi [...] disease, without long-term current use of insulin ([facility] V24, [facility] V28) COMPREHENSIVE METABOLIC PANEL Routine 10/24/2024 9:47 AM EDT Primary hypertension THYROID STIMULATING HORMONE Routine 10/24/2024 9:47 AM EDT Hypothyroidism, unspecified type LIPID PANEL WITH REFLEX TO DIRECT LDL Routine 10/24/2024 9:47 AM EDT Type 2 diabetes mellitus with stage 3 chronic kidney disease, without long-term current use of insulin, unspecified whether stage 3a or 3b CKD ([facility] V24, [facility] V28) HEMOGLOBIN A1C Routine 10/24/2024 9:47 AM EDT Type 2 diabetes mellitus with stage 3 chronic kidney disease, without long-term current use of insulin, unspecified whether stage 3a or 3b CKD ([facility] V24, [facility] V28) VITAMIN B12 Routine 10/24/2024 9:47 AM EDT Vitamin B12 deficiency DEPRESSION SCREENING Routine 06/30/2023 DIABETES EYE EXAM Routine 04/13/2023 HPV Routine 12/25/2020 from Last 3 Months or Most Recently Relevant to Health Maintenance Results * TRANSTHORACIC ECHOCARDIOGRAM (TTE) COMPLETE (11/17/2024 9:39 AM EDT) Left Atrium Minor [place] 4.7 cm CV PACS Left Atrium Major [place] 4.4 cm CV PACS LA Area Sys [...] Volume 63 mL CV PACS MV Deceleration [place] 4.9 m/s2 CV PACS E Wave Deceleration [...] mg/dL LAB CHEMISTRY METHOD 10/24/2024 1:37 PM [facility] Triglycerides 134 0 - 150 mg/dL LAB CHEMISTRY METHOD 10/24/2024 1:37 PM [facility] HDL 50 >=40 mg/dL LAB CHEMISTRY METHOD 10/24/2024 1:37 PM T [facility] LDL Calculated 81 0 - 100 mg/dL LAB CHEMISTRY METHOD [facility] VLDL Cholesterol Mychal 26.8 mg/dL LAB CHEMISTRY METHOD 10/24/2024 1:37 PM [facility] Non HDL Chol. (LDL+VLDL) 108 <145 mg/dL LAB CHEMISTRY METHOD 10/24/2024 1:37 PM EDT [facility] Chol/HDL Ratio 3.2 0.0 - 4.4 LAB CHEMISTRY METHOD 10/24/2024 1:37 PM EDT [facility] Blood Venous blood specimen / Unknown Venipuncture / Unknown 10/24/2024 9:47 AM EDT 10/24/2024 9:47 AM EDT us Maritza Marroquin MD LAB BLOOD ORDERABLES Final Resul t [facility] [address] [place] [address], [place] [phone] * Microalbumin creatinine urine ratio (10/24/2024 9:47 AM EDT) Creatinine, Urine 98.0 mg/dL LAB CHEMISTRY METHOD 10/24/2024 1:45 PM EDT [facility] Microalb, Ur 10.2 0.0 - 29.0 mg/L LAB CHEMISTRY METHOD 10/24/2024 1:45 PM EDT [facility] Microalb/Creat Ratio 10 <30 mg/g creat LAB CHEMISTRY METHOD 10/24/2024 1:45 PM EDT [facility] Urine Urine specimen from urethra / Unknown Non-blood Collection / Unknown 10/24/2024 9:47 AM EDT 10/24/2024 9:47 AM EDT us Ronda [facility] LAB URINE ORDERABLES Final Re sult [facility] [address] [place] [address], [place] [phone] * Thyroid stimulating hormone (10/24/2024 9:47 AM EDT) TSH 1.94 0.40 - 4.00 mcIU/mL LAB CHEMISTRY METHOD 10/24/2024 3:05 PM EDT [facility] Blood Venous blood specimen / Unknown Venipuncture / Unknown 10/24/2024 9:47 AM EDT 10/24/2024 9:47 AM EDT [facility] LAB BLOOD ORDERABLES Final Re sult Performing Organization Address [facility]/ZIP Co de Phone Number [facility] [address] [place] [address], [place] [phone] * Hemoglobin A1c (10/24/2024 9:47 AM EDT) [facility] Hemoglobin A1C 5.3 <6.5 % LAB CHEMISTRY METHOD 10/24/2024 9:40 PM EDT [facility] Mean Bld Glu Estim. 105 mg/dL LAB CHEMISTRY METHOD 10/24/2024 9:40 PM EDT [facility] Blood Venous blood specimen / Unknown Venipuncture / Unknown 10/24/2024 9:47 AM EDT 10/24/2024 9:47 AM EDT us Maritza Marroquin MD LAB BLOOD ORDERABLES Final Resul t Performing Organization Address [facility] Co de Phone Number [facility] [address] [place] [address], [place] [phone] * Vitamin B12 (10/24/2024 9:47 AM EDT) [facility] Vitamin B-12 327 250 - 900 pcg/mL LAB CHEMISTRY METHOD 10/24/2024 1:37 PM EDT [facility] Blood Venous blood specimen / Unknown Venipuncture / Unknown 10/24/2024 9:47 AM EDT 10/24/2024 9:47 AM EDT us Maritza Marroquin MD LAB BLOOD ORDERABLES Final Resul t Performing Organization Address [facility]/ZIP Co de Phone Number [facility] [address] [place] [address], [place] [phone] * (ABNORMAL) Comprehensive metabolic panel (10/24/2024 9:47 AM EDT) Sodium 134 133 - 145 mmol/L LAB CHEMISTRY METHOD 10/24/2024 1:37 PM [facility] Potassium 4.4 3.5 - 5.5 mmol/L LAB CHEMISTRY METHOD 10/24/2024 1:37 PM [facility] Chloride 103 96 - 110 mmol/L LAB CHEMISTRY METHOD 10/24/2024 1:37 PM [facility] CO2 23 21 - 32 mmol/L LAB CHEMISTRY METHOD 10/24/2024 1:37 PM [facility] Anion Gap 8 3 - 11 LAB CHEMISTRY METHOD 10/24/2024 1:37 PM [facility] Glucose 81 70 - 100 mg/dL LAB CHEMISTRY METHOD 10/24/2024 1:37 PM [facility] BUN 22 5 - 25 mg/dL LAB CHEMISTRY METHOD 10/24/2024 1:37 PM [facility] Creatinine 1.18(H) 0.50 - 1.10 mg/dL LAB CHEMISTRY METHOD 10/24/2024 1:37 PM [facility] eGFR 57(L) >=60 mL/min/1. 73m2 LAB CHEMISTRY METHOD 10/24/2024 1:37 PM [facility] Comment:Calculation based on the Chronic Kidney Disease Epidemiology Collaboration (CKD-EPI) equation refit without adjustment for race. BUN/Creatinine Ratio 18.6 LAB CHEMISTRY METHOD 10/24/2024 1:37 PM [facility] Calcium 9.7 8.5 - 10.5 mg/dL LAB CHEMISTRY METHOD 10/24/2024 1:37 PM [facility] AST (SGOT) 17 10 - 42 unit/L LAB CHEMISTRY METHOD 10/24/2024 1:37 PM [facility] ALT (SGPT) 24 10 - 60 unit/L LAB CHEMISTRY METHOD 10/24/2024 1:37 PM EDT [facility] Alkaline Phosphatase 76 42 - 121 unit/L LAB CHEMISTRY METHOD 10/24/2024 1:37 PM EDT [facility] Total Protein 7.7 6.0 - 8.0 g/dL LAB CHEMISTRY METHOD 10/24/2024 1:37 PM EDT [facility] Albumin 4.3 3.2 - 5.0 g/dL LAB CHEMISTRY METHOD 10/24/2024 1:37 PM EDT [facility] Total Bilirubin 0.4 0.0 - 1.4 mg/dL LAB CHEMISTRY METHOD 10/24/2024 1:37 PM EDT [facility] Blood Venous blood specimen / Unknown Venipuncture / Unknown 10/24/2024 9:47 AM EDT 10/24/2024 9:47 AM EDT [facility] LAB BLOOD ORDERABLES Final Re sult [facility] [address] [place] [address], * Depression Screening (06/30/2023) [facility] Depression Screening Abstracted [facility] Provider HEALTH MAINTENANCE Final Result * Diabetes Eye Exam (04/13/2023) [facility] Diabetes: Annual Retina Eye Exam Abstracted Historical Provider HEALTH MAINTENANCE Final Result * Cervical Cancer Screening: HPV (12/25/2020) 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
== END 2024-11-29 13:21 | disposition home or self-care (01) ==
LOC: HO.RHE 12:09
PROVIDERS: PCP Internal Medicine; Visit Provider Student in an Organized Health Care Education/Training Program
DX: M32.19 Other organ or system involvement in systemic lupus erythematosus (principal); N18.31 Chronic kidney disease, stage 3a; Z79.899 Other long term (current) drug therapy
CPT/HCPCS: 99214

== ENCOUNTER 2025-04-25 08:24 | Outpatient (REF) | payer BC, MEDICARE, MEDICAID, OTHER, SELFPAY ==
--- OUTSIDE RECORDS SUMMARY | 2025-04-25 08:35 | XMS_ITS | Encounter Summary ---
Author Organization [facility] Address [address] [place] [address] Care Team Providers Care Religious Healer Name Role Phone Maritza Marroquin MD Primary Care Provider [phone] Encounter Details Date Type Department Care Team (Late st Contact Info) Description 03/22/2025 Results Follow-Up Adult Medicine [facility] [address] [place], [place] [phone] Ronda Hall PA [address] [place], [place] Social History Tobacco Use Types Packs/Day Years Used Date Smoking Tobacco: Never Smokeless Tobacco: Never Alcohol Use Standard Drinks/Week Comments No 0 (1 standard drink = 0.6 oz pur e alcohol) Housing Instability Answer Date Recorde d Are you worried that in the next 2 months you may not have stable housing? No 12/25/2024 Food Access & Nutrition Answer Date Rec orded Do you have access to a vari ety of food including fruits and vegetables? Yes 12/25/2024 Access to Healthcare Answer Date Record ed Within the last 3 months, ho w many times did you visit the emergency department for your medical care? 0 12/25/2024 Health Literacy Answer Date Recorded How often do you need to hav e someone help you when you read instructions, pamphlets, or other written material from your doctor or pharmacy? Never 12/25/2024 Caregiver: How often do you need to have someone help you when you read instructions, pamphlets, or other written material from your doctor or pharmacy? Not on file 12/25/2024 Financial Risk Answer Date Recorded How hard is it for you to pa y for the very basics like food, housing, medical care, and air conditioning / heating? Not very hard 12/25/2024 Transportation Answer Date Recorded Has the lack of transportati on kept you from meetings, work, or from getting things needed for daily living? No Has the lack of transportati on kept you from medical appointments or from getting medications? No 12/25/2024 Social Isolation Answer Date Recorded How often do you feel lonely or isolated from th ose around you? Never 12/25/2024 Food Risk Answer Date Recorded Within the past 12 months we worried whether our food would run out before we got money to buy more. Never true 12/25/2024 Within the past 12 months th e food we bought just didn't last and we didn't have money to get more. Never true 12/25/2024 Dependent Care Answer Date Recorded Do you need help finding or paying for care for your loved ones. For example, child development consultant or elderly care for an older adult? No 12/25/2024 Education Answer Date Recorded Do you think completing more education or training, like finishing a GED, going to college, or learning a trade, would be helpful for you? No 12/25/2024 Employment and Income Answer Date Recor ded During the last four weeks, have you been actively looking for work? No 12/25/2024 Living Situation Answer Date Recorded What is your living situation? Unrecognized valu e 12/25/2024 Comments No Sex and Gender Information Value Date Recorded Sex Assigned at Not on file Legal Sex Female 10:11 AM EST Gender Identity Not on file Sexual Orientation Not on file documented as of this encounter Plan of Treatment Upcoming Encounters Date Type Department Care Team (Late st Contact Info) Description 05/04/2025 12:40 PM EST Office Visit [facility] [address] [place] [address] Jeronimo Clark NP [address] [place] [address] [address] [place] [address] 05/11/2025 9:45 AM EST Office Visit Adult Medicine [facility] [address] [place], [place] [phone] Maritza Marroquin MD [address] [place], [place] 01/09/2026 1:15 PM EDT Office Visit Pulmonology - [place] [address] [place] [phone] Justyna Scanlon MD [address] [place] [phone] 03/27/2026 9:30 AM EST Office Visit Vascular Surgery - [place] [address] [facility] [address] [place] [phone] Christiana De La Cruz MD [address] [place] [phone] documented as of this encounter Visit Diagnoses Not on filedocumented in this encounter Additional Health Concerns Assessment Noted Time PHQ-9 Depression Total Score: 0 12/26/19 25 1:10 PM EDT A fall risk assessment has been complete d for the patient 12/25/2024 1:09 PM EDT documented as of this encounter Care Teams Religious Healer Relationship Specialty Start Date End Date Maritza Marroquin MD [address] [place] [address] PCP - General Internal Medicine 11/21/20 documented as of this encounter
--- OUTSIDE RECORDS SUMMARY | 2025-04-25 08:35 | XMS_ITS | Clinical Summary ---
Author Organization [facility] Address [address] [place] [address] Phone Care Team Providers Care Blast Furnace Tender Name Role Phone Maritza Marroquin MD Primary Care Provider [phone] Allergies Active Allergy Reactions Criticality Noted Date Comments Nsaids (Non-Steroidal Anti-Inflammatory Drug) 10/30/2013 Skin reaction Other Itching 02/14/2014 Seasonal Allergies Other Reaction(s): Runny Nose/Rhinitis Medications labetaloL (NORMODYNE) 100 mg tablet Take 1 [...] each day. 90 tablet 3 5 Active albuterol HFA (PROAIR HFA ; PROVENTIL HFA ; VENTOLIN HFA) 90 mcg/actuation inhaler Inhale 2 puffs by mouth every 4 (four) hours if needed for wheezing. Ihale 2 Puffs into the lungs every 4 hours as needed for Wheezing for up to 30 days. 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) ([facility] V24, [facility] V28) 11/26/2020 Overview (03/07/2024): Kidney biopsy 07/03/2020 at [facility] Kidney biopsy showed: Findings identify class III [...] Hypothyroidism 10/07/2020 Stage 3b chronic kidney disease ([facility] V24, [facility] V28) 09/10/2020 Overview (08/20/2024): P DM (diabetes mellitus), type 2 with renal complications ([facility] V24, [facility] V28) 09/10/2020 Primary hypertension 07/27/2020 Seizure ([facility] V24, [facility] V28) 06/30/2020 Overview (03/07/2024): Not [...] blood bank recommendations which was sent to [facility] to strip the cells and determine if [...] and mild LVH, overall normal. BP that [id number] with normal pulse. Last Assessment & Plan: [...] deficiency 04/23/2016 Overview (08/20/2024): Systemic lupus erythematosus ([facility] V24, [facility] V28) 12/05/2015 Overview (03/07/2024): Onset 2009 with polyarthritis. Rheumatoid factor negative. LAUREN and mmjo-lmihwj-[id number] DNA positive. Not much better with hydroxychloroquine. [...] ledukopenia; eventually developed PRES and transferred to [facility] 06/2020 - required short term hemodialysis [...] & Plan: Repaet PP Pap Rheumatoid arthritis ([facility] V24, [facility] V28) Overview (08/20/2024): arthritis tx center Encounters Date Type Department Care Team Description 03/22/2025 Results Follow-Up Adult Medicine [address] [address] Ronda Hall PA 03/21/2025 1:00 PM EDT Office Visit Vascular Surgery - [place] [address] [place] [phone] Christiana De La Cruz MD PAD (peripheral artery disease) ([facility] V24) (Primary Dx) 03/21/2025 12:05 PM EDT Lab Draw Station - [address] [facility] [address] [place] [phone] Vitamin D deficiency; Type 2 diabetes mellitus with stage 3a chronic kidney disease, without long-term current use of insulin ([facility] V24, [facility] V28); Atypical chest pain 03/19/2025 Results Follow-Up [facility] Vascular Lab [address] [place] [phone] Christiana De La Cruz MD 03/09/2025 12:56 PM EDT - 03/09/2025 11:59 PM EDT Hospital Encounter [facility] Ultrasound [address] [place] [phone] PAD (peripheral artery disease) ([facility] V24) Discharge Disposition: Home or Self Care from Last 3 Months Immunizations Immunization Administration Dates Next Due Influenza Quadravalent, MDCK [...] History Medical History Date Comments Rheumatoid arthritis ([facility] V24, [facility] V28) arthritis fl center Systemic lupus ([facility] V24, [facility] V28) Alopecia areata 08/30/2018 Diabetic neuropathy ([facility] V24, [facility] V28) 08/06/2021 Acquired hemolytic anemia ([facility] V24, [facility] V28) PVD (peripheral vascular dis ease) ([facility] V24) 02/07/202402/14 left popliteal artery o cclusion Lupus (systemic lupus erythe matosus) ([facility] V24, [facility] V28) Family History Medical History [...] Date Smoking Tobacco: Never Smokeless Tobacco: Never Tobacco Cessation:Counseling Given: Not Answered Alcohol Use Standard Drinks/Week Comments No 0 [...] ed Within the last 3 months, ho cynthia many times did you visit the emergency [...] for your loved ones. For example, child life therapist or elderly care for an older adult? [...] Sign Reading Time Taken Comments Blood Pressure 120/80 03/21/2025 12:59 PM EDT Pulse 72 03/21/2025 12:59 PM EDT Temperature 36.4 C (97.5 F) 01/08/2025 1:40 PM EDT Respiratory Rate 16 03/21/2025 12:59 PM EDT Oxygen Saturation 98% 01/08/2025 1:40 PM EDT Inhaled Oxygen Concentration - - Weight 83.9 kg (185 lb) 03/21/2025 12:59 PM EDT Height 165.1 cm (5' 5 ) 03/21/2025 12:59 PM EDT Body Mass Index 30.79 03/21/2025 12:59 PM EDT Plan of Treatment Upcoming Encounters Date Type Department Care Team (Late st Contact Info) Description 05/04/2025 12:40 PM EST Office Visit [facility] [address] [place] [phone] Jeronimo Clark NP [address] [place] [address] [address] [place] [place] [phone] 05/11/2025 9:45 AM EST Office Visit Adult Medicine [address] [phone] Maritza Marroquin MD [address] [place], [place] 01/09/2026 1:15 PM EDT Office Visit Pulmonology - [place] [address] [place] [phone] Justyna Scanlon MD [address] [place] [phone] 03/27/2026 9:30 AM EST Office Visit Vascular Surgery - [place] [address] [place] [address] Christiana De La Cruz MD [address] [place] [phone] Health Maintenance Due Date Last Done Comments Diabetes: Annual Foot Exam 01/12/1986 Hepatitis B Vaccines (1 of 3 - 19+ 3-dose series) 01/12/1995 Pneumococcal Vaccine: Pediatrics (0 to 5 Years) and At-Risk Patients (6 to 49 Years) (1 of 2 - PCV) 01/12/1995 COVID-19 Vaccine (3 - Pfizer risk series) 11/01/2020 10/04/2020, 09/13/2020 Cervical Cancer Screening: HPV 12/25/2021 12/25/2020 HIV Screening 05/02/2022 Diabetes: Annual Retina Eye Exam 04/13/2024 04/13/2023 Influenza Vaccine (#1) 2025 , 06/30/2023, 04/11/2021, Additional history exists Breast Cancer Screening 06/10/2025 06/10/2023 Diabetes: Blood Sugar Control Test (HGBA1C) 09/19/2025 03/21/2025, 10/24/2024, 02/15/2024, Additional history exists Diabetes: Annual Urine Albumin-Creatinine Ratio (uACR) 10/24/2025 10/24/2024, 02/15/2024, 07/01/2020, Additional history exists Medicare Annual Wellness Visit 12/25/2025 12/25/2024 Social Influencers of Health Screening 12/25/2025 12/25/2024 Diabetes: Annual GFR (Glomerular Filtration Rate) 03/21/2026 03/21/2025, 10/24/2024, 08/17/2024, Additional history exists Hypertension/CHF/CAD Annual BMP Blood Test 03/21/2026 03/21/2025, 10/24/2024, 08/17/2024, Additional history exists DTaP,Tdap,and Td Vaccines (2 - Td or Tdap) 11/22/2028 11/22/2018 Cholesterol Screening (Lipid Panel) 10/24/2029 10/24/2024, 02/15/2024, 02/15/2024 Colorectal Cancer Screening: Colonoscopy 03/31/2033 03/31/2023, 03/31/2023 RSV Immunization Adult Patients (1 - 1-dose 75+ series) 01/12/2051 Hepatitis C Screening Completed 07/02/2020 Depression Screening Completed 12/25/2024, 06/30/19 24 HIB Vaccines Aged Out No longer eligi [...] Procedure Name Priority Date/Time Associated Diagnosis Comments BASIC METABOLIC PANEL Routine 03/21/2025 12:04 PM EDT Atypical chest pain HEMOGLOBIN A1C Routine 03/21/2025 12:04 PM EDT Type 2 diabetes mellitus with stage 3a chronic kidney disease, without long-term current use of insulin ([facility] V24, [facility] V28) VITAMIN D 25 HYDROXY Routine 03/21/2025 12:04 PM EDT Vitamin D deficiency VAS US DUPLEX LOWER EXT ARTERIES BILAT WITH ANTHONY Routine 03/09/2025 1:50 PM EDT PAD (peripheral artery disease) ([facility] V24) MICROALBUMIN CREATININE URINE RATIO Routine 10/24/2024 9:47 AM EDT Type 2 diabetes mellitus with stage 3b chronic kidney disease, without long-term current use of insulin ([facility] V24, [facility] V28) LIPID PANEL WITH REFLEX TO DIRECT LDL Routine 10/24/2024 9:47 AM EDT Type 2 diabetes mellitus with stage 3 chronic kidney disease, without long-term current use of insulin, unspecified whether stage 3a or 3b CKD ([facility] V24, [facility] V28) DEPRESSION SCREENING Routine 06/30/2023 DIABETES EYE EXAM Routine 04/13/2023 EXTERNAL COLONOSCOPY REPORT Routine 03/31/2023 9:50 AM EST HPV Routine 12/25/2020 from Last 3 Months or Most Recently Relevant to Health Maintenance Results * (ABNORMAL) Vitamin D 25 hydroxy (03/21/2025 12:04 PM EDT) Vit D, 25-Hydroxy 25.2(L) 30.0 - 80.0 ng/mL LAB CHEMISTRY METHOD 03/21/2025 3:50 PM EDT [facility] Blood Venous blood specimen / Unknown Venipuncture / Unknown 03/21/2025 12:04 PM EDT 03/21/2025 12:41 PM EDT us Ronda HILL LAB BLOOD ORDERABLES Final Re sult [facility] [address] [place] [address], [place] [phone] * Hemoglobin A1c (03/21/2025 12:04 PM EDT) [facility] Hemoglobin A1C 5.9 <6.5 % LAB CHEMISTRY METHOD 03/21/2025 1:58 PM EDT [facility] Mean Bld Glu Estim. 123 mg/dL LAB CHEMISTRY METHOD 03/21/2025 1:58 PM EDT [facility] Blood Venous blood specimen / Unknown Venipuncture / Unknown 03/21/2025 12:04 PM EDT 03/21/2025 12:43 PM EDT [facility] LAB BLOOD ORDERABLES Final Re sult [facility] [address] [place] [address], * (ABNORMAL) Basic metabolic panel (03/21/2025 12:04 PM EDT) [facility] Sodium 138 133 - 145 mmol/L LAB CHEMISTRY METHOD 03/21/2025 4:54 PM [facility] Potassium 4.7 3.5 - 5.5 mmol/L LAB CHEMISTRY METHOD 03/21/2025 4:54 PM [facility] Chloride 106 96 - 110 mmol/L LAB CHEMISTRY METHOD 03/21/2025 4:54 PM T [facility] CO2 23 21 - 32 mmol/L LAB CHEMISTRY METHOD 03/21/2025 4:54 PM [facility] Anion Gap 9 3 - 11 LAB CHEMISTRY METHOD 03/21/2025 4:54 PM [facility] Glucose 87 70 - 100 mg/dL LAB CHEMISTRY METHOD 03/21/2025 4:54 PM [facility] BUN 27(H) 5 - 25 mg/dL LAB CHEMISTRY METHOD 03/21/2025 4:54 PM EDT [facility] Creatinine 1.24(H) 0.50 - 1.10 mg/dL LAB CHEMISTRY METHOD 03/21/2025 4:54 PM EDT [facility] eGFR 53(L) >=60 mL/min/1. 73m2 LAB CHEMISTRY METHOD 03/21/2025 4:54 PM EDT [facility] Comment:Calculation based on the Chronic Kidney Disease Epidemiology Collaboration (CKD-EPI) equation refit without adjustment for race. BUN/Creatinine Ratio 21.8 LAB CHEMISTRY METHOD 03/21/2025 4:54 PM EDT [facility] Calcium 9.3 8.5 - 10.5 mg/dL LAB CHEMISTRY METHOD 03/21/2025 4:54 PM EDT [facility] Blood Venous blood specimen / Unknown Venipuncture / Unknown 03/21/2025 12:04 PM EDT 03/21/2025 12:41 PM EDT us Billy Ferrell MD LAB BLOOD ORDERABLES Final Resul t [facility] [address] [place] [address], * Vascular US duplex lower extremity arteries bilateral with ANTHONY (03/09/2025 1:50 PM EDT) Anatomical Region Laterality Modality Vascular, Abdomen Ultrasound 03/19/2025 12:1 1 PM EDT Impressions 03/19/2025 12:17 PM EDT Abnormal left-sided ANTHONY examination. Right leg: Mild atherosclerotic changes without significant stenosis or occlusion. Left leg: Similar proximal to mid popliteal artery occlusion with distal reconstitution. -------- FINAL REPORT -------- Dictated By: Maddi Miner Dictated Date: 03/19/2025 12:11 ET Assigned Physician: Maddi Miner Reviewed and Electronically Signed By: Maddi Miner Signed Date: 03/19/2025 12:17 ET Workstation ID: [id number] Transcribed By: Self Edit Transcribed Date: 03/19/2025 12:11 ET Narrative 03/19/2025 12:17 PM EDT INDICATION: Peripheral vascular disease TECHNIQUE: Bilateral ankle to brachial indices obtained. Arterial duplex imaging obtained of both lower extremities. Prior relevant imaging studies: February 01, 2024 Right posterior tibial index 1.15 Right dorsalis pedis index 1.07 Right digital index 0.72 Left posterior tibial index 0.79 Left dorsalis pedis index 0.74 Left digital index toes 0.63 Abnormal left-sided Doppler waveforms as well as bilateral pulse volume recordings. Right leg: Common femoral artery: Normal velocities and waveform. Superficial femoral artery: Normal velocities and waveform. Popliteal artery: Normal velocities and waveform. Posterior tibial artery: Normal velocities and waveform. Anterior tibial artery: Normal velocities and waveform. Left leg: Common femoral artery: Normal velocities and waveform. Superficial femoral artery: Normal velocities and waveform. Popliteal artery: Occluded proximal to mid popliteal artery. Slow monophasic flow distally measuring up to 19 cm/s. Posterior tibial artery: Slow monophasic flow throughout measuring 26 cm/s distally. Anterior tibial artery: 27 cm/s distally with biphasic waveform. Procedure Note Maddi Miner MD - 03/19/2025 INDICATION: Peripheral vascular disease TECHNIQUE: Bilateral ankle to brachial indices obtained. Arterial dupleximaging obtained of both lower extremities. Prior relevant imaging studies: February 01, 2024 Right posterior tibial index 1.15 Right dorsalis pedis index 1.07 Right digital index 0.72 Left posterior tibial index 0.79 Left dorsalis pedis index 0.74 Left digital index toes 0.63 Abnormal left-sided Doppler waveforms as well as bilateral pulse volumerecordings. Right leg: Common femoral artery: Normal velocities and waveform. Superficial femoral artery: Normal velocities and waveform. Popliteal artery: Normal velocities and waveform. Posterior tibial artery: Normal velocities and waveform. Anterior tibial artery: Normal velocities and waveform. Left leg: Common femoral artery: Normal velocities and waveform. Superficial femoral artery: Normal velocities and waveform. Popliteal artery: Occluded proximal to mid popliteal artery. Slowmonophasic flow distally measuring up to 19 cm/s. Posterior tibial artery: Slow monophasic flow throughout measuring 26 cm/sdistally. Anterior tibial artery: 27 cm/s distally with biphasic waveform. IMPRESSION: Abnormal left-sided ANTHONY examination. Right leg: Mild atherosclerotic changes without significant stenosis orocclusion. Left leg: Similar proximal to mid popliteal artery occlusion with distalreconstitution. -------- FINAL REPORT -------- Dictated By: Maddi Miner Dictated Date: 03/19/2025 12:11 ET Assigned Physician: Maddi Miner Reviewed and Electronically Signed By: Maddi Miner Signed Date: 03/19/2025 12:17 ET Workstation ID: [id number] Transcribed By: Self Edit Transcribed Date: 03/19/2025 12:11 ET us Christiana De La Cruz MD CV VASCULAR PROCEDURES Fi nal Result * Lipid panel with reflex to direct LDL (10/24/2024 9:47 AM EDT) Cholesterol 158 0 - 200 mg/dL LAB CHEMISTRY METHOD 10/24/2024 1:37 PM EDT [facility] Triglycerides 134 0 - 150 mg/dL LAB CHEMISTRY METHOD 10/24[facility]24 [facility] HDL 50 >=40 mg/dL LAB CHEMISTRY METHOD 10/24/2024 1:37 PM [facility] LDL Calculated 81 0 - 100 mg/dL LAB CHEMISTRY METHOD 10/24/2024 1:37 PM [facility] VLDL Cholesterol Mychal 26.8 mg/dL LAB CHEMISTRY METHOD 10/24/2024 1:37 PM [facility] Non HDL Chol. (LDL+VLDL) 108 <145 mg/dL LAB CHEMISTRY METHOD 10/24/2024 1:37 PM [facility] Chol/HDL Ratio 3.2 0.0 - 4.4 LAB CHEMISTRY METHOD 10/24/2024 1:37 PM [facility] Blood Venous blood specimen / Unknown Venipuncture / Unknown 10/24/2024 9:47 AM EDT 10/24/2024 9:47 AM EDT Maritza Marroquin MD LAB BLOOD ORDERABLES Final Resul t [facility] [address] [place] [address], [place] [phone] * Microalbumin creatinine urine ratio (10/24/2024 9:47 AM EDT) [facility] Creatinine, Urine 98.0 mg/dL LAB CHEMISTRY METHOD 10/24/2024 1:45 PM EDT [facility] Microalb, Ur 10.2 0.0 - 29.0 mg/L LAB CHEMISTRY METHOD 10/24/2024 1:45 PM EDT [facility] Microalb/Creat Ratio 10 <30 mg/g creat LAB CHEMISTRY METHOD 10/24/2024 1:45 PM EDT [facility] Urine Urine specimen from urethra / Unknown Non-blood Collection / Unknown 10/24/2024 9:47 AM EDT 10/24/2024 9:47 AM EDT [facility] LAB URINE ORDERABLES Final Re sult Performing Organization Address [facility]/ZIP Co de Phone Number [facility] [address] [place] [address], [place] [phone] * Depression Screening (06/30/2023) Pathologist [facility] Depression Screening Abstracted Historical Provider HEALTH MAINTENANCE Final Result * Diabetes Eye Exam (04/13/2023) Pathologist [facility] Diabetes: Annual Retina Eye Exam Abstracted Historical Provider HEALTH MAINTENANCE Final Result * External Colonoscopy Report (03/31/2023 9:50 AM EST) Anatomical Region Laterality Modality Endoscopy Historical Provider GI~PROCEDURE ORDERABLES F inal Result * Cervical Cancer Screening: HPV (12/25/2020) [facility] Cervical Cancer Screening: HPV Negative, Abstracted us Historical Provider HEALTH MAINTENANCE Final Result from Last 3 Months or Most Recently Relevant to Health Maintenance Insurance MEDICARE [facility] [place]ICAID [place] Advance Directives Documents on File Type Date Recorded Patient Prior Authorization Nurse Expl anation Health Care Decision (hx) 08/07/2020 [...] (hx) 06/24/2020 AD DAVIS DIRECTIVE Care Teams Blast Furnace Tender Relationship Specialty Start Date End Date Maritza Marroquin MD [address] [place] [phone] PCP - General Internal Medicine 11/21/20
--- OUTSIDE RECORDS SUMMARY | 2025-04-25 08:35 | XMS_ITS | Encounter Summary ---
Author Organization [facility] Address [address] [place] [address] Phone Care Team Providers Care Qa Analyst Name Role Phone Myriam Elam MD Primary Care Provider [phone] Encounter Details Date Type Department Care Team (Late st Contact Info) Description 06/30/2020 Procedure [place] [facility], [place] [address] [facility] Floor, [address] [place] [address] Social History Tobacco Use Types Packs/Day Years Used Date Smoking Tobacco: Never Assessed Comments Unknown Sex and Gender Information Value Date Recorded Sex Assigned at Not on file Legal Sex Female 11:52 AM EST Gender Identity Not on file Sexual Orientation Not on file documented as of this encounter Functional Status * Calculated C-SSRS Risk Score (Lifetime/Recent) Answer Date of Assessment Author No Risk Indicated 07/01/2020 9:00 AM Tri Murrell RN * [place] Suicide Severity Rating Scale (Screener/Recent Self-Report) Question Answer Date of Assessment Author 1. Wish to be (Past 1 Month) No 021 9:00 AM Tri Murrell RN 2. Non-Specific Active Suici perla Thoughts (Past 1 Month) No 07/01/2020 9:00 AM Demetrius Murrell RN 6. Suicidal Behavior (Lifetime) No 9:00 AM Tri Murrell RN documented as of this encounter Plan of Treatment Not on file documented as of this encounter Visit Diagnoses Not on filedocumented in this encounter Additional Health Concerns Infection Onset Date Last Indicated Resolved Time CoV-Risk Comment:Per note documentation 06/30/2020 06/30/2020 1:24 PM EST MRSA 06/30/2020 06/30/2020 07/08/2022 1:45 AM EST documented as of this encounter Care Teams Qa Analyst Relationship Specialty Start Date End Date Myriam Elam MD [address] [place] [id number] PCP - General Internal Medicine 06/29/20 documented as of this encounter Additional Source Comments The information contained in this document represents components of the legal health record. It is not the complete legal health record.[facility]
--- OUTSIDE RECORDS SUMMARY | 2025-04-25 08:35 | XMS_ITS | Clinical Summary ---
Author Organization [facility] Address [address] [facility] [address] [place] [address] Phone Care Team Providers Care Roll Tender Name Role Phone ClairecolbyMarly Bartholomew DO Primary Care Pro vider Allergies [...] encephalopathy syndrome 12/13/2020 Seizure 06/30/2020 12/13/2020 Immunizations Immunization Administration Dates Next Due Influenza TIV (IM) [...] Due Date Last Done Comments Hepatitis B Vaccine (1 of 3 - 19+ 3-dose series) 01/12 Pneumococcal Vaccine: Peds ( 0 to 5 Years) and At-Risk Patients (6 to 49 Years) (1 of 2 - PCV) 01/12/1995 Diabetes: Hemoglobin A1C 09/25/2020 Diabetes: Ophthalmology Exam 09/25/2020 Diabetes: Pedal Pulse Checked 09/25/2020 Diabetes: Sensory Foot Exam 09/25/2020 Diabetes: Visual Foot Exam 09/25/2020 Colorectal Cancer Screening: Annual FOBT 01/12/2025 Colorectal Cancer Screening: Colonoscopy 01/12/2025 Colorectal Cancer Screening: Sigmoidoscopy 01/12/2025 Influenza Vaccine (#1) 2025 01/23/2020 Insurance [facility] ([id number]) [facility] ([id number]) Care Teams Roll Tender Relationship Specialty Start Date End Date Marly Castillo DO PCP - General Internal Medicine 09/25/20
--- OUTSIDE RECORDS SUMMARY | 2025-04-25 08:35 | XMS_ITS | Encounter Summary ---
Author Organization [facility] Address [address] [place] [address] Phone Care Team Providers Care Weed Control Inspector Name Role Phone Myriam Elam MD Primary Care Provider [phone] Encounter Details Date Type Department Care Team (Late st Contact Info) Description 07/12/2020 Procedure Pass [facility] PERIOPER[facility]IVE DEPT [address] [place] [phone] Social History Tobacco Use Types Packs/Day Years [...] Infection Onset Date Last Indicated Resolved Time MRSA 06/30/2020 06/30/2020 07/08/2022 1:45 AM EST documented as of this encounter Care Teams Weed Control Inspector Relationship Specialty Start Date End Date Myriam Elam MD [address] [place] [address] PCP - General Internal Medicine 06/29/20 documented as of this encounter Additional Source Comments The information contained in this document represents components of the legal health record. It is not the complete legal health record.[facility]
--- OUTSIDE RECORDS SUMMARY | 2025-04-25 08:35 | XMS_ITS | Encounter Summary ---
Author Organization [facility] Address [address] [place] [address] Phone Care Team Providers Care Art Psychotherapist Or Therapist Name Role Phone Myriam Elam MD Primary Care Provider [phone] Encounter Details Date Type Department Care Team (Late st Contact Info) Description 07/03/2020 Procedure Pass [facility] [place] [address] [place] [address], 6th [place] [address] Social History Tobacco Use Types Packs/Day Years [...] documented as of this encounter Care Teams Art Psychotherapist Or Therapist Relationship Specialty Start Date End Date Myriam Elam MD [address] [place] [address] PCP - General Internal Medicine 06/29/20 documented as of this encounter Additional Source Comments The information contained in this document represents components of the legal health record. It is not the complete legal health record.[facility]
--- OUTSIDE RECORDS SUMMARY | 2025-04-25 08:35 | XMS_ITS | Encounter Summary ---
Author Organization [facility] Address [address] [place] [address] Phone Care Team Providers Care Batcher Operator Name Role Phone Myriam Elam MD Primary Care Provider [phone] Encounter Details Date Type Department Care Team (Late st Contact Info) Description 07/01/2020 Procedure Pass [facility] [place], L[place] 6 55 [facility], 6th [place] [address] Social History Tobacco Use Types Packs/Day Years [...] 07/01/2020 9:00 AM Tri Murrell RN * [place] Suicide Severity Rating Scale (Screener/Recent Self-Report) Question [...] documented as of this encounter Care Teams Batcher Operator Relationship Specialty Start Date End Date Myriam Elam MD [address] [place] [address] PCP - General Internal Medicine 06/29/20 documented as of this encounter Additional Source Comments The information contained in this document represents components of the legal health record. It is not the complete legal health record.[facility]
--- OUTSIDE RECORDS SUMMARY | 2025-04-25 08:35 | XMS_ITS | Clinical Summary ---
Author Organization [facility] Address [address] [place] [address] Phone Care Team Providers Care Customer Service Assistant Name Role Phone Myriam Elam MD Primary Care Provider Allergies Active Allergy Reactions Criticality Noted Date Comments Nsaids (Non-Steroidal Anti-Inflammatory Drug) 10/30/2013 Skin reaction Medications hydrOXYchloroQU INE (PLAQUENIL) 200 mg tablet Take 200 mg by mouth daily. Active predniSONE (DELTASONE) 10 MG tablet Take 40 mg by mouth daily with breakfast. Active albuterol 90 mcg/actuation inhaler Inhale 2 puffs into the lungs every 6 (six) hours as needed for wheezing. Active heparin 5,000 unit/mL injection Inject 1 mL (5,000 Units total) under the skin 3 (three) times a day. 1 Active folic acid (FOLVITE) 1 MG tablet Take 1 tablet (1 mg total) by mouth daily. 1 Active acetaminophen (TYLENOL) 325 mg tablet Take 2 tablets (650 mg total) by mouth every 6 (six) hours as needed for mild pain or fever. 0 1 Active atovaquone (MEPRON) 750 mg/5 mL suspension Take 10 mL (1,500 mg total) by mouth daily. 1 Active insulin regular (HUMULIN-R,ROXANNE MIMI-R) 100 unit/mL injection Inject 0-12 Units under the skin 4 (four) times a day before meals and nightly. OKAY TO GIVE IF NOT RECEIVING NUTRITIONAL INSULIN. Sliding scale insulin - Moderate dose Blood glucose (mg/dL): Insulin dose Glucose 70-150: 0 unit. Glucose 151-200: 2 units. Glucose 201-250: 4 units. Glucose 251-300: 6 units. Glucose 301-350: 8 units. Glucose 351-400: 10 units. Glucose >400: 12 units and call RC. For blood glucose < 70 mg/dL call RC AND if patient: 1. Able to take PO, give 15 g of carbohydrate (4 oz fruit juice, regular soda, 8 oz of skim milk, or 3 to 4 glucose tablets) 2. Unable to take PO and PIV PRESENT, administer D50W per prn medication order OR 3. Unable to take PO and NO PIV, call RC/SHAVING MACHINE OPERATOR to obtain order for glucagon Check blood glucose in 15 minutes and repeat if < 80 mg/dL and call RC 1 Active labetaloL (TRANDATE) 300 MG tablet Take 2 tablets (600 mg total) by mouth every 8 (eight) hours. 1 Active levothyroxine (SYNTHROID,LEVO THROID) 25 MCG tablet Take 1 tablet (25 mcg total) by mouth every morning. 1 Active melatonin 5 mg Tab Take 1 tablet (5 mg total) by mouth nightly at bedtime. 1 Active senna (SENOKOT) 8.6 mg tablet Take 1 tablet by mouth 2 (two) times a day. 1 Active tamsulosin (FLOMAX) 0.4 mg Cap Take 1 capsule (0.4 mg total) by mouth every evening. 1 Active omeprazole (PRILOSEC) 40 MG capsule Take 1 capsule (40 mg total) by mouth daily before breakfast. 1 Active traZODone (DESYREL) 50 MG tablet Take 1 tablet (50 mg total) by mouth nightly at bedtime as needed. 1 Active busPIRone (BUSPAR) 7.5 MG tablet Take 1 tablet by mouth 2 (two) times a day. 2 Active betamethasone valerate 0.1 % cream APPLY TO AFFECTED AREAS ON SCALP ONCE DAILY FOR 3 WEEKS, BREAK 1 WEEK THEN REPEAT 2 Active cyanocobalamin (VITAMIN B-12) 1,000 mcg/mL injection Inject 1,000 mcg into the muscle every 3 (three) months. 0 Active insulin glargine (LANTUS, BASAGLAR) 100 unit/mL (3 mL) InPn injection pen 10 Units. 1 Active insulin lispro (ADMELOG, HUMALOG) 100 unit/mL injection vial Inject 3 times per day with meals based on sliding scale 150-199 = 1 unit 200-249 =2 units 250-299 =3 units 300-349 =4 units 350-399 =5 units > 400 call MD 1 Active mycophenolate mofetil (CELLCEPT) 500 mg tablet Take 500 mg by mouth 2 (two) times a day. 1 Active metFORMIN (GLUCOPHAGE) 500 MG tablet Take 500 mg by mouth 2 (two) times a day. 1 Active Active Problems Problem Noted Date Diagnosed Date PRES (posterior reversible encephalopathy syndro me) 07/22/2020 CARMEN (acute kidney injury) 07/08/2020 Seizure 06/30/2020 Immunizations Immunization Administration Dates Next Due COVID-19 (Pre-03/15) Pfizer Vaccine, mRNA, PF Social History Tobacco Use Types Packs/Day Years Used Date Smoking Tobacco: Never Assessed Education Answer Date Recorded Are you interested in more education? Not on jose e 09/18/2022 Are you concerned about learning? Not on file 09/18/2022 No 09/18/2022 No 09/18/2022 Digital Access Answer Date Recorded No 10/20/2022 No 10/20/2022 Reliable internet access at home? Not on file 10/20/2022 Device with a working camera? Not on file Comments No Sex and Gender Information Value Date Recorded Sex Assigned at Not on file Legal Sex Female 11:52 AM EST Gender Identity Not on file Sexual Orientation Not on file Last Filed Vital Signs Vital Sign Reading Time Taken Comments Blood Pressure 135/87 07/26/2020 1:15 PM EST Pulse 82 07/26/2020 1:15 PM EST Temperature 36.3 C (97.3 F) 07/26/2020 1:15 PM EST Respiratory Rate 14 07/26/2020 11:30 AM EST Oxygen Saturation 98% 07/26/2020 1:15 PM EST Inhaled Oxygen Concentration 35% 07/08/2020 4 :00 PM EST Weight 56 kg (123 lb 7.3 oz) 07/22/2020 6:00 AM EST Height 152.4 cm (5') 07/01/2020 9:00 AM EST Body Mass Index 24.11 07/01/2020 9:00 AM EST Plan of Treatment Health Maintenance Due Date Last Done Comments LIPID PANEL 1976 DEPRESSION SCREENING 1988 SMOKING Hx and SMOKELESS TOBACCO SCREENING 01/12/1989 PNEUMOCOCCAL VACCINES (0-49 years) (1 of 2 - PCV) 01/12/1995 PAP SMEAR 01/12/1997 MAMMOGRAM 2016 COVID-19 VACCINE (2 - Pfizer risk series) 10/04/2020 09/13/2020 COLOGUARD 01/12/2021 COLONOSCOPY 01/12/2021 COLORECTAL CANCER SCREENING 01/12/2021 FIT TEST 01/12/2021 FOBT 01/12/2021 SIGMOIDOSCOPY 01/12/2021 VIRTUAL COLONOSCOPY 01/12/2021 TSH LEVEL 07/06/2021 07/06/2020 CREATININE LEVEL 07/26/2021 07/26/2020, 08/2020, 07/24/2020, Additional history exists INFLUENZA VACCINE (#1) 2024 9, 03/22/2018, 03/05/2017, Additional history exists Adult Td,Tdap Booster 11/22/2028 11/22/2018 HEPATITIS C SCREENING Completed 07/02/2020 , 07/02/2020, 07/02/2020 HIV ONE-TIME SCREENING (18-65 YEARS) Completed 07/07/2020 HEPATITIS A VACCINES Aged Out No long er eligible based on patient's age to complete this topic HIB VACCINES Aged Out No longer eligi ble based on patient's age to complete this topic MENINGOCOCCAL VACCINES (ACWY) Aged Out No longer eligible based on patient's age to complete this topic MENINGOCOCCAL VACCINES (B) Aged Out N o longer eligible based on patient's age to complete this topic Medical Devices Implanted Type Area Upper Lining Cementer Device Identifier Shelf Expiration Date Model / Serial / Lot Kit Catheter Palindrome 14.5fr 16fr 36cm 19cm .038in Symmetric Tip Double Lumen Safety Sheath Tissue Dilator Introducer Needle Guidewire Venatrac Insertion Stylet Heparin Lf Hemodialysis Ct/5ea - Discontinued Per [employer] Change Use Ps #[id number] - [id number] Implanted:Qty: 1 on 07/12/2020 by Andrez Kimble MD at [facility] Orders 11/14/2024 [id number] / / [id number] Procedures Procedure Name Priority Date/Time Associated Diagnosis Comments BASIC METABOLIC PANEL (BMP) Routine 07/26/2020 3:20 AM EST TSH WITH REFLEX Routine 07/06/2020 12:15 AM EST HEPATITIS C ANTIBODY, QUALITATIVE Routine 07/02/2020 6:00 AM EST from Last 3 Months or Most Recently Relevant to Health Maintenance Results * (ABNORMAL) Basic metabolic panel (07/26/2020 3:20 AM EST) SODIUM 136 135 - 145 mmol/L [facility] POTASSIUM 3.7 3.4 - 5.0 mmol/L [facility] CHLORIDE 103 98 - 108 mmol/L [facility] CO2 24 23 - 32 mmol/L [facility] BUN 29(H) 8 - 25 mg/dL [facility] CREATININE 1.17 0.60 - 1.50 mg/dL [facility] GLUCOSE 93 70 - 110 mg/dL [facility] CALCIUM 8.5 8.5 - 10.5 mg/dL [facility] EGFR 57(L) >59 mL/min/1.7 3m2 [facility] Comment:Estimated glomerular filtration rate calculated using the CKD-EPI equation. ANION GAP 9 3 - 17 mmol/L [facility] Blood 07/26/2020 3:20 AM EST 07/26/2020 3:26 AM EST us Ellen Pizano COMMERCIAL [employer]ONE SOFTWARE DEVELOPER LAB BLOOD BKR ORDERAB LES Final Result [facility] [address] [place] [address] * (ABNORMAL) TSH with reflex (07/06/2020 12:15 AM EST) SCREENING PANEL: TSH 7.54(H) 0.40 - 5.00 uIU/mL [facility] Blood 07/06/2020 12:1 5 AM EST 07/06/2020 12:30 AM EST us Katelyn Valera NP LAB BLOOD BKR ORDERABLES Final Result Performing Organization Address [facility]/ZIP Co de Phone Number [address] [address] * Hepatitis C antibody, qualitative (07/02/2020 6:00 AM EST) HCV ANTIBODY Negative Negative [facility] Comment:Antibodies to HCV no t detected. Does not exclude the possibility of exposure to HCV. Blood 07/02/2020 6:00 AM EST 07/02/2020 6:06 AM EST us Nish Cassidy MD LAB BLOOD BKR ORDERABLES Final Result Performing Organization Address City/[facility] Co de Phone Number [address] [phone] from Last 3 Months or Most Recently Relevant to Health Maintenance Insurance [facility] MEDICARE PART A & [place] [facility] [place] [id number] MEDICARE PART A & B [facility] [place] [id number] MEDICARE PART A & B [facility] MEDICARE PART A & B Advance Directives For more information, please contact: [phone] (9AM - 5PM [facility], Wednesday-Wednesday) Documents on File Type Date Recorded Patient Battery Starter Expl anation Healthcare Proxy 07/01/2020 7:17 AM * Full Code (Latest Code Status on File) Date Activated Date Inactivated Comments 07/01/2020 5:44 AM Question Answer Comments Code Status Confirmed With: Family Healthcare Agents on File Name Relationship Healthcare Agent [facility] Alexander Campushi p Communication Leonidas Stinson Brother .Primary Health Care Agent (Proxy form on file) Care Teams Customer Service Assistant Relationship Specialty Start Date End Date Myriam Elam MD [address] [place] [id number] PCP - General Internal Medicine 06/29/20 Additional Source Comments The information contained in this document represents components of the legal health record. It is not the complete legal health record.[facility]
--- OUTSIDE RECORDS SUMMARY | 2025-04-25 08:35 | XMS_ITS | Encounter Summary ---
Author Organization [facility] Address [address] [place] [address] Phone Care Team Providers Care Kiln Fireman Name Role Phone Myriam Elam MD Primary Care Provider [phone] Encounter Details Date Type Department Care Team (Late st Contact Info) Description 07/01/2020 Procedure Pass [facility] [place], [address] [address] [facility], 6th [place] [address] Social History Tobacco Use Types Packs/Day Years [...] 07/01/2020 9:00 AM Tri Murrell RN * [place] Suicide Severity Rating Scale (Screener/Recent Self-Report) Question [...] documented as of this encounter Care Teams Kiln Fireman Relationship Specialty Start Date End Date Myriam Elam MD [address] [place] [address] PCP - General Internal Medicine 06/29/20 documented as of this encounter Additional Source Comments The information contained in this document represents components of the legal health record. It is not the complete legal health record.[facility]
--- OUTSIDE RECORDS SUMMARY | 2025-04-25 08:35 | XMS_ITS | Encounter Summary ---
Author Organization [facility] Address [address] [place] [address] Phone Care Team Providers Care Signal Maintainer Name Role Phone Myriam Elam MD Primary Care Provider Encounter Details Date Type Department Care Team (Late st Contact Info) Description 07/01/2020 Procedure Pass [facility] [place], Lunder 6 55 [facility], 6th [place] [address] Social History Tobacco Use Types Packs/Day Years [...] 07/01/2020 9:00 AM Tri Murrell RN * [place] Suicide Severity Rating Scale (Screener/Recent Self-Report) Question [...] documented as of this encounter Care Teams Signal Maintainer Relationship Specialty Start Date End Date Myriam Elam MD [address] [place] [address] PCP - General Internal Medicine 06/29/20 documented as of this encounter Additional Source Comments The information contained in this document represents components of the legal health record. It is not the complete legal health record.[facility]
--- OUTSIDE RECORDS SUMMARY | 2025-04-25 08:35 | XMS_ITS | Encounter Summary ---
Author Organization [facility] Address [address] [place] [address] Phone Care Team Providers Care Precision Assembler Name Role Phone Myriam Elam MD Primary Care Provider [phone] Encounter Details Date Type Department Care Team (Late st Contact Info) Description 07/25/2020 Procedure Pass [facility] [facility] [place] [address] [facility], 4th [place] [address] Social History Tobacco Use Types Packs/Day Years Used Date Smoking Tobacco: Never Assessed Comments No Sex and Gender Information Value [...] documented as of this encounter Care Teams Precision Assembler Relationship Specialty Start Date End Date Myriam Elam MD [address] [place] [address] PCP - General Internal Medicine 06/29/20 documented as of this encounter Additional Source Comments The information contained in this document represents components of the legal health record. It is not the complete legal health record.[facility]
--- OUTSIDE RECORDS SUMMARY | 2025-04-25 08:35 | XMS_ITS | Encounter Summary ---
Author Organization [facility] Address [address] [place] [address] Phone Care Team Providers Care Photo Tube Assembler Name Role Phone Myriam Elam MD Primary Care Provider [phone] Encounter Details Date Type Department Care Team (Late st Contact Info) Description 07/07/2020 Procedure Pass [facility] [place], [place] [address] [place] [address], 6th [place] [address] Social History Tobacco Use Types Packs/Day Years [...] documented as of this encounter Care Teams Photo Tube Assembler Relationship Specialty Start Date End Date Myriam Elam MD [address] [place] [address] PCP - General Internal Medicine 06/29/20 documented as of this encounter Additional Source Comments The information contained in this document represents components of the legal health record. It is not the complete legal health record.[facility]
--- OUTSIDE RECORDS SUMMARY | 2025-04-25 08:35 | XMS_ITS | Encounter Summary ---
Author Organization [facility] Address [address] [place] [address] Phone Care Team Providers Care Cable Mechanic Name Role Phone Myriam Elam MD Primary Care Provider [phone] Encounter Details Date Type Department Care Team (Late st Contact Info) Description 07/01/2020 Procedure Pass [facility] Cardiac US [address] [place] [address] Social History Tobacco Use Types Packs/Day Years [...] 07/01/2020 9:00 AM Tri Murrell RN * [place] Suicide Severity Rating Scale (Screener/Recent Self-Report) Question [...] documented as of this encounter Care Teams Cable Mechanic Relationship Specialty Start Date End Date Myriam Elam MD [address] [place] [address] PCP - General Internal Medicine 06/29/20 documented as of this encounter Additional Source Comments The information contained in this document represents components of the legal health record. It is not the complete legal health record.[facility]
--- OUTSIDE RECORDS SUMMARY | 2025-04-25 08:35 | XMS_ITS | Encounter Summary ---
Author Organization [facility] Address [address] [place] [address] Phone Care Team Providers Care Maintainer Sewer And Waterworks Name Role Phone Myriam Elam MD Primary Care Provider [phone] Encounter Details Date Type Department Care Team ([facility] st Contact Info) Description 07/06/2020 Procedure Pass [facility] [place] - Peripoerative Interventional Radiology [address] [place] [address], 4th [place] [address] Social History Tobacco Use Types Packs/Day Years [...] documented as of this encounter Care Teams Maintainer Sewer And Waterworks Relationship Specialty Start Date End Date Myriam Elam MD [address] [place] [address] PCP - General Internal Medicine 06/29/20 documented as of this encounter Additional Source Comments The information contained in this document represents components of the legal health record. It is not the complete legal health record.[facility]
--- OUTSIDE RECORDS SUMMARY | 2025-04-25 08:35 | XMS_ITS | Encounter Summary ---
Author Organization [facility] Address [address] [place] [address] Phone Care Team Providers Care Gas Regulator Repairer Helper Name Role Phone Myriam Elam MD Primary Care Provider [phone] Encounter Details Date Type Department Care Team (Late st Contact Info) Description 07/02/2020 Procedure Pass [facility] [place] Imaging - RF/IR [address] [place] [address] Social History Tobacco Use Types Packs/Day Years [...] documented as of this encounter Care Teams Gas Regulator Repairer Helper Relationship Specialty Start Date End Date Myriam Elam MD [address] [place] [address] PCP - General Internal Medicine 06/29/20 documented as of this encounter Additional Source Comments The information contained in this document represents components of the legal health record. It is not the complete legal health record.[facility]
--- OUTSIDE RECORDS SUMMARY | 2025-04-25 08:35 | XMS_ITS | Clinical Summary ---
Author Organization [facility] Address [address] [place] [address] Care Team Providers Care Brass Buffer Name Role Phone Marly Turcios DO Primary [...] daily. 0 Active ergocalciferol (VITAMIN D2) capsule 34946 units Take 50,000 Units by mouth once [...] age to complete this topic Care Teams Brass Buffer Relationship Specialty Start Date End Date Marly Turcios DO PCP - General Mud Jack Nozzle Worker 09/09/20
--- OUTSIDE RECORDS SUMMARY | 2025-04-25 08:35 | XMS_ITS | Encounter Summary ---
Author Organization [facility] Address [address] [place] [address] Phone Care Team Providers Care Material Handling Warehouse Supervisor Name Role Phone Myriam Elam MD Primary Care Provider [phone] Encounter Details Date Type Department Care Team (Late st Contact Info) Description 07/22/2020 Procedure Pass [facility] [place] - [place] [address] [place] [address] Social History Tobacco Use Types Packs/Day Years [...] documented as of this encounter Care Teams Material Handling Warehouse Supervisor Relationship Specialty Start Date End Date Myriam Elam MD [address] [place] [address] PCP - General Internal Medicine 06/29/20 documented as of this encounter Additional Source Comments The information contained in this document represents components of the legal health record. It is not the complete legal health record.[facility]
--- OUTSIDE RECORDS SUMMARY | 2025-04-25 08:35 | XMS_ITS | Encounter Summary ---
Author Organization [facility] Address [address] [place] [address] Phone Care Team Providers Care Cake Maker Name Role Phone Rubenlavonneraymond Mraly Primary Care Pro vider Encounter Details Date Type Department Care Team (Late st Contact Info) Description 04/11/2021 Telephone [facility] [address] [place] [address] Ritika Bentley Social History Tobacco Use Types Packs/Day Years Used Date Smoking Tobacco: Never Smokeless Tobacco: Never Comments Unknown Sex and Gender Information Value Date Recorded Sex Assigned at Not on file Legal Sex Female 8:57 AM EST Gender Identity Not on file Sexual Orientation Not on file documented as of this encounter Functional Status documented as of this encounter Plan of Treatment Not on file documented as of this encounter Procedures Procedure Name Priority Date/Time Associated Diagnosis Comments ALBUMIN, URINE, RANDOM Routine 04/11/2021 3:22 PM EST URINALYSIS Routine 04/11/2021 3:22 PM EST documented in this encounter Results * Albumin, urine, random (04/11/2021 3:22 PM EST) Creatinine, Urine 122.07 mg/dL [place] Urine Microalbumin <5.0 mg/L [place] Microalbumin/Crea tinine Ratio TNP ug/mg cr [place] Comment: Unable to calculate albumin/creatinine ratio due to low microalbumin or creatinine result. 04/11/2021 3:22 PM EST 04/11/2021 3:22 PM EST us Mike Mcarthur MD LAB URINE ORDERABLES Final Re sult [place] * (ABNORMAL) Urinalysis (04/11/2021 3:22 PM EST) Color Urine YELLOW [place] Appearance Urine CLEAR [place] pH Urine 6.0 5.0 - 8.0 [place] Glucose Urine NEG NEG MG/DL [place] Blood, Urine NEG NEG [place] Specific [place] Urine >=1.030(H) 1.005 - 1.025 [place] Protein Urine NEG NEG-TRACE MG/DL [place] Ketones, Urine NEG NEG MG/DL [place] Nitrite, Urine NEG NEG [place] Leukocyte Esterase Urine NEG NEG [place] 04/11/2021 3:22 PM EST 04/11/2021 3:22 PM EST Mike Mcarthur MD LAB URINE ORDERABLES Final Re sult Performing Organization Address [facility] Co de Phone Number [place] documented in this encounter Visit Diagnoses Not on filedocumented in this encounter Care Teams Cake Maker Relationship Specialty Start Date End Date Marly Castillo DO PCP - General Internal Medicine 09/25/20 documented as of this encounter
--- OUTSIDE RECORDS SUMMARY | 2025-04-25 08:35 | XMS_ITS | Encounter Summary ---
Author Organization [facility] Address [address] [place] [address] Care Team Providers Care Seat Cover Cutter Name Role Phone Maritza Marroquin MD Primary Care Provider [phone] Encounter Details Date Type Department Care Team (Late st Contact Info) Description 03/19/2025 Results Follow-Up [facility] [address] [place] [address] Christiana De La Cruz MD [address] [place] [phone] Social History Tobacco Use Types Packs/Day Years [...] Record ed Within the last 3 months, denny marie many times did you visit the emergency [...] for your loved ones. For example, child daycare worker or elderly care for an older adult? [...] Description 05/04/2025 12:40 PM EST Office Visit [facility] [address] [place] [address] Jeronimo Clark NP [address] [place] [address] [address] [place] [place] [phone] 05/11/2025 9:45 AM EST Office Visit Adult Medicine [facility] [address] [place], [place] [phone] Maritza Marroquin MD [address] [place], [place] 01/09/2026 1:15 PM EDT Office Visit Pulmonology - [place] [address] [place] [address] Justyna Scanlon MD [address] [place] [phone] 03/27/2026 9:30 AM EST Office Visit Vascular Surgery - [place] [address] [facility] [address] [place] [phone] Christiana De La Cruz MD [address] [place] [phone] documented as of this encounter Visit Diagnoses Not on filedocumented in this encounter Additional Health Concerns Assessment Noted Time PHQ-9 Depression Total Score: 0 12/26/19 25 1:10 PM EDT A fall risk assessment has been complete d for the patient 12/25/2024 1:09 PM EDT documented as of this encounter Care Teams Seat Cover Cutter Relationship Specialty Start Date End Date Maritza Marroquin MD [address] [place] [address] PCP - General Internal Medicine 11/21/20 documented as of this encounter
[2025-04-25 08:43] LABS: MANUAL DIFF FLAG NO
[2025-04-25 09:17] LABS: Hematocrit 41.5 % (37.0-47.0); Hemoglobin 14.4 g/dl (12.0-16.0); Imm Gran Abs Auto 0.12 X10*3/uL (0.00-0.03); Imm Gran Pct Auto 1.4 % (0.0-0.4); Lymphocytes Absolute Auto 2.7 X10*3/uL (1.2-4.9); Mean Corpuscular HGB Conc 34.7 g/dl (31.0-35.0); Mean Corpuscular Hemoglobin 30.0 pg (27.0-33.0); Mean Corpuscular Volume 86.5 fL (80.0-98.0); NRBC Abs Auto 0.000 X10*3/uL (0.0-0.012); NRBC Pct Auto 0.0 /100WBC (0.0-0.2); Platelet Count 219 X10*3/uL (160-400); Red Blood Count 4.80 X10*6/uL (4.20-5.50); White Blood Count 8.6 X10*3/uL (4.8-10.8)
[2025-04-25 09:34] LABS: Appearance Urine Clear; Glucose Urine UA Negative (Negative); PH 5.5 (5.0-9.0); Specific Gravity - Urine 1.025 (1.005-1.025); UMIC TRIGGER UA YES
[2025-04-25 09:35] LABS: Alanine Aminotransferase 20 U/L (0-31); Albumin Level 4.6 g/dL (3.5-5.0); Alkaline Phosphatase 76 U/L (39-117); Anion Gap 12 (12-20); Aspartate Amino Transferase 20 U/L (5-31); Blood Urea Nitrogen 24 mg/dL (9-16); Calcium 8.9 mg/dL (8.4-10.2); Carbon Dioxide 25 mmol/L (22-29); Chloride 107 mmol/L (96-108); Estimated Glomerular Filt Rate 55; Potassium 4.5 mmol/L (3.3-5.1); Sodium 139 mmol/L (135-145); Total Protein 7.4 g/dL (6.5-8.0)
[2025-04-25 09:54] LABS: Protein/Creatinine Ratio, Ur 0.10 (<0.2); Total Protein Urine Random 17 mg/dL (<12)
== END 2025-04-25 08:25 | disposition home or self-care (01) ==
LOC: HO.LAB 08:24
PROVIDERS: PCP Internal Medicine; Visit Provider Student in an Organized Health Care Education/Training Program
DX: M32.19 Other organ or system involvement in systemic lupus erythematosus (principal)
CPT/HCPCS: 36415; 80053; 81001; 82570; 84156; 85025; 85652; 86140; 86160; 86225